=== PATIENT | female | born 1955 | race Caucasian/White ===

== ENCOUNTER 2016-12-08 22:38 | Inpatient (IN) | payer MEDICARE, MEDICAID ==
[2016-12-09] MEDS ORDERED: Albuterol/Ipratropium 3.0-0.5 MG/3 ML Neb Soln NEB PRN (00:15)
[2016-12-09] MEDS ORDERED: Sodium Chloride 0.9% 10 ML Syringe FLUSH PRN (00:15)
[2016-12-09] MEDS ORDERED: Insulin Aspart 100 Units/ML 3 ML Pen SUBCUT ONE (00:39)
[2016-12-09] MEDS: Sodium Chloride 0.9% 1,000 ML IV SCH ×4 (00:45→07:13)
[2016-12-09] MEDS ORDERED: Ondansetron 4 MG/2 ML SDV IVPUSH PRN (01:42)
[2016-12-09] MEDS ORDERED: Acetaminophen 325 MG Tab PO PRN (01:45)
[2016-12-09] MEDS ORDERED: Nicotine 21 MG/24 Hr Patch TRDERM SCH (02:00)
[2016-12-09] MEDS ORDERED: Insulin Aspart 100 Units/ML 3 ML Pen SUBCUT SCH (08:00)
[2016-12-09 09:13] VITALS: BP 160/72
--- NOTE | 2016-12-09 09:14 | PCM.HP ---
H&P History of Present Illness - General Date of Service: 12/09/16 Admit Problem/Dx: Admission Diagnosis/Problem Admission Diagnosis/Problem Acute renal failure syndrome Source of Information: Patient History Limitations: Reports: No Limitations - History of Present Illness Initial Comments - Free Text/Narative: 61-year-old female was brought in yesterday because of weakness of the legs and found to have acute renal failure. She feels good this morning.She has a history of type 2 diabetes with a recent A1c of 8.1. She aklso has a trace of depression well-controlled,hypertension stable and was in her unusual state of health until yesterday when she got up from a sitting position and the legs gave out. She denies nausea vomiting diarrhea fever chills has a chronic cough from either bronchitis or asthma which is unlcear. She smokes and works in a place with a lot of smoke. - Related Data Allergies/Adverse Reactions: Allergies Allergy/AdvReac Type Severity Reaction Status Date / Time No Known Allergies Allergy Verified 12/08/16 22:40 Home Medications: Home Meds Amphetamine/Dextroamphetamine [Adderall] 20 mg DAILY 11/01/13 [History] Benazepril/Hydrochlorothiazide [Benazepril-HCTZ 20-12.5 MG] 1 tab DAILY [History] Dextroamphetamine/Amphetamine [Amphetamine Salts] 1 tab DAILY 11/01/13 [History] Insulin Glarg,Human.Rec.Analog [Lantus Solostar] 30 units SQ BID 11/01/13 [ History] Omeprazole 20 mg PO DAILY 11/01/13 [History] metFORMIN HCl [Metformin HCl] 850 mg PO BID 11/01/13 [History] Aspirin [Low Dose Aspirin EC] 81 mg PO DAILY 04/26/15 [History] Gabapentin [Neurontin] 600 mg PO BEDTIME 04/26/15 [History] Insulin Aspart [NovoLOG] 11 units SQ 1800 04/26/15 [History] Levothyroxine 75 mcg DAILY 04/26/15 [History] Multivitamin [Daily Multiple Vitamin] 1 tab PO DAILY 04/26/15 [History] Albuterol [Proventil Neb Soln] 2.5 mg .XX 6XDAY PRN #100 neb 08/30/15 [Rx] Past Medical History - Past Health History Medical/Surgical History: Denies Medical/Surgical History HEENT 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: Other (See Below) Other HEENT History: WEARS EYEGLASSES Cardiovascular 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: High Cholesterol, Hypertension Respiratory 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: COPD MARKETING LIAISON 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: , Spontaneous Musculoskeletal 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: Arthritis Neurological 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: Neuropathy, Diabetic, Neuropathy, Peripheral Psychiatric 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: Anxiety, Depression Other Psychiatric History: insomnia Endocrine/Metabolic 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: Diabetes, Type II, Hypothyroidism, Other ( See Below) (Hyercalcemia) - Infectious Disease History Infectious Disease 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: Chicken Pox, Measles - Past Surgical History HEENT Surgical 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: None Cardiovascular Surgical 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: None Respiratory Surgical 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: None GI Surgical 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: Appendectomy, Cholecystectomy Female Surgical 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: Section, D&C Endocrine Surgical 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: None Neurological Surgical 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: None Musculoskeletal Surgical 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: None Social & Family History - Family History Family Medical History: Noncontributory - Tobacco Use Smoking Status *Q: Current Every Day Smoker Years of Tobacco use: 35 Packs/Tins Daily: 1.5 Used Tobacco, but Quit: No Second Hand Smoke Exposure: No - Caffeine Use Caffeine Use: Reports: None - Alcohol Use Days Per Week of Alcohol Use: 0 - Recreational Drug Use Recreational Drug Use: No H&P Review of Systems - Review of Systems: Review Of Systems: ROS reveals no pertinent complaints other than HPI. Exam - Exam Exam: See Below - Vital Signs Vital Signs: Last Vital Signs Temp 98.5 F 12/09/16 08:00 Pulse 93 12/09/16 08:00 Resp 16 12/09/16 08:00 BP 160/72 H 12/09/16 08:00 Pulse Ox 93 L 12/09/16 08:00 Weight: 82.27 kg - Exam General: Alert, Oriented, 4 HEENT: PERRLA, Hearing Intact, Mucosa Moist & [place], Nares Patent, Normal Nasal Septum, Posterior Pharynx Clear, Conjunctiva Clear, EOMI, EACs Clear, TMs Clear Neck: Supple, Trachea Midline, 2 Lungs: Rales, Rhonchi Cardiovascular: Regular Rate, Regular Rhythm Abdomen: Normal Bowel Sounds, Soft (Female) Exam: Deferred Rectal (Female) Exam: Deferred Back Exam: Normal Inspection, Full Range of Motion, NT Extremities: 3, Normal Inspection, 10 Skin: Warm, Dry, Intact Neurological: Cranial Nerves Intact, Reflexes Equal Bilateral Neuro Extensive - Mental Status: Alert, Oriented x3, Normal Mood/Affect, Normal Cognition Neuro Extensive - Motor, Sensory, Reflexes: CN II-XII Intact, Normal Gait, Normal Reflexes Psychiatric: Alert, Normal Affect, Normal Mood - Patient Data Lab Results last 24 hrs: Laboratory Results - last 24 hr 12/09/16 12/09/16 12/09/16 Range/Units 04:23 04:46 06:33 WBC 10.4 (4.5-12.0) X10-3/uL RBC 3.59 (3.23-5.20) x10(6)uL Hgb 10.9 L (11.5-15.5) g/dL Hct 31.8 (30.0-51.3) % MCV 88.6 (80-96) fL MCH 30.3 (27.7-33.6) pg MCHC 34.2 (32.2-35.4) g/dL RDW 13.5 (11.5-15.5) % Plt Count 270 (125-369) X10(3)uL MPV 7.9 (7.4-10.4) fL Neut % (Auto) 61.8 (46-82) % Lymph % (Auto) 27.3 (13-37) % Benton % (Auto) 9.6 (4-12) % Eos % (Auto) 1 (1.0-5.0) % Baso % (Auto) 0 (0-2) % Neut # (Auto) 6.5 (1.6-8.3) # Lymph # (Auto) 2.8 (0.6-5.0) # Benton # (Auto) 1.0 (0.0-1.3) # Eos # (Auto) 0.1 (0.0-0.8) # Baso # (Auto) 0.0 (0.0-0.2) # Sodium (135-145) mmol/L Potassium (3.5-5.3) mmol/L Chloride (100-110) mmol/L Carbon Dioxide (23-29) mmol/L BUN (8-23) mg/dL Creatinine (0.6-1.3) mg/dL Est Cr Clr Drug Dosing mL/min Estimated GFR (MDRD) (>60) BUN/Creatinine Ratio (9-20) Glucose (80-116) mg/dL POC Glucose 79 L D 86 (80-116) mg/dL Calcium (8.6-10.2) mg/dL Total Bilirubin (0.1-1.3) mg/dL AST (5-27) IU/L ALT (14-26) IU/L Alkaline Phosphatase (56-112) IU/L Total Protein (6.0-8.0) g/dL Albumin (3.2-4.6) g/dL Globulin g/dL Albumin/Globulin Ratio 12/09/ Range/Units 06:33 WBC (4.5-12.0) X10-3/uL RBC (3.23-5.20) x10(6)uL Hgb (11.5-15.5) g/dL Hct (30.0-51.3) % MCV (80-96) fL MCH (27.7-33.6) pg MCHC (32.2-35.4) g/dL RDW (11.5-15.5) % Plt Count (125-369) X10(3)uL MPV (7.4-10.4) fL Neut % (Auto) (46-82) % Lymph % (Auto) (13-37) % Benton % (Auto) (4-12) % Eos % (Auto) (1.0-5.0) % Baso % (Auto) (0-2) % Neut # (Auto) (1.6-8.3) # Lymph # (Auto) (0.6-5.0) # Benton # (Auto) (0.0-1.3) # Eos # (Auto) (0.0-0.8) # Baso # (Auto) (0.0-0.2) # Sodium 136 (135-145) mmol/L Potassium 5.0 (3.5-5.3) mmol/L Chloride 105 D (100-110) mmol/L Carbon Dioxide 18 L (23-29) mmol/L BUN 48 H (8-23) mg/dL Creatinine 6.4 H* (0.6-1.3) mg/dL Est Cr Clr Drug Dosing 6.96 mL/min Estimated GFR (MDRD) 7 L (>60) BUN/Creatinine Ratio 7.5 L (9-20) Glucose 109 D (80-116) mg/dL POC Glucose (80-116) mg/dL Calcium 8.3 L (8.6-10.2) mg/dL Total Bilirubin 0.4 (0.1-1.3) mg/dL AST 18 (5-27) IU/L ALT 13 L (14-26) IU/L Alkaline Phosphatase 75 (56-112) IU/L Total Protein 6.2 (6.0-8.0) g/dL Albumin 3.5 (3.2-4.6) g/dL Globulin 2.7 g/dL Albumin/Globulin Ratio 1.3 Result Diagrams: 12/09/16 06:33 12/09/16 06:33 EKG INTERPRETATION Rhythm: NSR *Q Meaningful Use (ADM) - VTE *Q VTE Criteria *Q: - Stroke *Q Stroke Criteria *Q: - AMI *Q AMI Criteria *Q: - Problem List (1) Acute renal failure (ARF) SNOMED Code(s): 59817456 ICD Code: N17.9 - ACUTE KIDNEY FAILURE, UNSPECIFIED Status: Acute Current Visit: Yes (2) Diabetes type 2, controlled SNOMED Code(s): 88885613 ICD Code: E11.9 - TYPE 2 DIABETES MELLITUS WITHOUT COMPLICATIONS Status: Acute Current Visit: Yes Qualifiers: Diabetes mellitus complication status: without complication Diabetes mellitus terminologist insulin use: without terminologist use Qualified Code(s): E11.9 - Type 2 diabetes mellitus without complications (3) HTN (hypertension) SNOMED Code(s): 37795275 ICD Code: I10 - ESSENTIAL (PRIMARY) HYPERTENSION Status: Acute Current Visit: Yes Qualifiers: Hypertension type: essential hypertension Qualified Code(s): I10 - Essential (primary) hypertension (4) Bronchitis SNOMED Code(s): 43630169 ICD Code: J40 - BRONCHITIS, NOT SPECIFIED ACUTE OR CHRONIC Status: Acute Current Visit: No Problem List Initiated/Reviewed/Updated: Yes Orders Last 24hrs: Active Orders 24 hr Category Date Time Status EKG Documentation Completion [RC] ASDIRECTED Care 12/09/16 08:38 Active Telemetry Monitoring [Cardiac Monitoring] [RC] QSHIFT Care 12/09/16 00:36 Active CXR [Chest 2V] [CR] Stat Exams 12/09/16 07:30 Ordered Echo Comp wo Cont [US] Urgent Exams 12/10/16 07:00 Ordered Acetaminophen [Tylenol] Med 12/09/16 01:45 Active 650 mg PO Q4H PRN Nicotine [Habitrol] Med 12/09/16 02:00 Active 21 mg TRDERM DAILY@2100 Ondansetron [Zofran] Med 12/09/16 01:42 Active 4 mg IVPUSH Q6H PRN Sodium Chloride 0.9% [Normal Saline] 1,000 ml Med 12/09/16 03:00 Active IV ASDIRECTED EKG 12 Lead [EK] Routine Ther 12/09/16 08:38 Ordered Medication Orders Acetaminophen (Tylenol) 650 mg PO Q4H PRN PRN Reason: Pain Albuterol/Ipratropium (Duoneb 3.0-0.5 Mg/3 Ml) 3 ml NEB Q6H PRN PRN Reason: Wheezing Sodium Chloride (Normal Saline) 1,000 mls @ 999 mls/hr IV ASDIRECTED [facility] Last Admin: 12/09/16 01:53 Dose: 999 mls/hr Infusion: 12/09/16 01:46 Dose: 999 mls/hr Admin: 12/09/16 00:45 Dose: 999 mls/hr Sodium Chloride (Normal Saline) 1,000 mls @ 250 mls/hr IV ASDIRECTED [facility] Last Admin: 12/09/16 07:13 Dose: 250 mls/hr Infusion: 12/09/16 07:00 Dose: 250 mls/hr Admin: 12/09/16 03:00 Dose: 250 mls/hr Insulin Aspart (Novolog) 0 unit SUBCUT TIDMEALS [facility] PRN Reason: Protocol Last Admin: 12/09/16 09:00 Dose: Not Given Nicotine (Habitrol) 21 mg TRDERM DAILY@2100 [facility] Last Admin: 12/09/16 02:00 Dose: 21 mg Ondansetron HCl (Zofran) 4 mg IVPUSH Q6H PRN PRN Reason: Nausea/Vomiting Sodium Chloride (Saline Flush) 10 ml FLUSH ASDIRECTED PRN PRN Reason: Keep Vein Open Assessment/Plan Comment:: creatinine despite the and a half liters of normal saline a slightly gone up to 6.4. She feels fine otherwise and her potassium and sugar within reference range. I Suggest to transfer to [facility] especially to get a nephrology consultation. We'll make that transfer this morning.
--- NOTE | 2016-12-09 16:23 | CR ---
INDICATION: Cough. CHEST: PA and lateral views of the chest 12/09/2016, compared with 08/30/2015, revealed the heart to appear enlarged, emphasized by relatively poor inspiration. There appears to be a degree of exogenous obesity. Overlying EKG leads are noted. Bony structures appear to be grossly intact. Somewhat heavy markings are noted at the lung bases posteriorly, especially at the left lung base, making it difficult to exclude patchy bronchopneumonia. No definite pleuritis is suggested. No consolidating pneumonia or definite effusion seen. IMPRESSION: 1. Cannot exclude patchy bronchopneumonia at the lung bases, especially on the left. No pleuritis suggested. 2. ASHD with cardiomegaly suggested 3. Probable exogenous obesity. MTDD
--- NOTE | 2016-12-10 14:29 | ER ---
DATE SEEN: 12/08/2016 CHIEF COMPLAINT: Fall. HISTORY OF PRESENT ILLNESS: This 61-year-old female is complaining of sudden weakness of the legs while she was at work at the [employer]. She still feels weak in the legs, but denies any other symptoms. No nausea, chest pain, or shortness of breath. Has a cough that is chronic and shortness of breath on ambulation. She is a smoker. PAST MEDICAL HISTORY: Type 2 diabetes. ADHD. REVIEW OF SYSTEMS: No loss of consciousness. No seizures. PHYSICAL EXAMINATION: GENERAL: She is not in any distress. Her blood pressure is normal. Her pulse is 101, temp 98.2, and oxygenation 97% on room air. EARS, NOSE, and THROAT: Negative. HEAD: Normal size. EYES: Normal. CHEST: End- expiratory rhonchi. CARDIOVASCULAR: Regular rate and rhythm. DIAGNOSTIC DATA: EKG, normal sinus rhythm. LABORATORY DATA: White count of 13,000, but potassium was 5.8 and creatinine was 6.2. IMPRESSION: Acute renal failure. PLAN: Admit for IV fluid resuscitation. I will also give NovoLog to control her blood sugar, and potassium, and check BMP every 6 hours. /[id number] MARIXA/ALBA DRISCOLL
--- NOTE | 2016-12-10 14:29 | DISCH ---
DISCHARGE DATE: 12/09/2016 REASON FOR ADMISSION: Renal failure. HISTORY OF PRESENT ILLNESS: A 61-year-old female with type 2 diabetes, presented with weakness of legs and renal failure. This morning, she has no symptoms, but the creatinine has gone up to 6.4. She is hemodynamically stable and because of the high creatinine, I did a chest x-ray that was negative, because of the cough. But the creatinine needs further treatment and consultation with Nephrology. I spoke with Dr. Veronika Thomas at [facility] and will transfer the patient this morning. I spent about 35 minutes in the discharge of this patient. /[id number] MARIXA/ALBA
== END 2016-12-09 10:52 | DRG 684 ==
LOC: FB.ED 22:38 → FB.MS 12-09 00:15
PROVIDERS: ADMIT Family Medicine; ATTEND Family Medicine
DX: N17.9 Acute kidney failure, unspecified (principal); J40 Bronchitis, not specified as acute or chronic; F17.210 Nicotine dependence, cigarettes, uncomplicated; Z79.4 Long term (current) use of insulin; Z79.84 Long term (current) use of oral hypoglycemic drugs; I10 Essential (primary) hypertension; J44.9 Chronic obstructive pulmonary disease, unspecified; M19.90 Unspecified osteoarthritis, unspecified site; Z79.82 Long term (current) use of aspirin; E11.42 Type 2 diabetes mellitus with diabetic polyneuropathy
CPT/HCPCS: 36415; 71020; 80048; 80053; 82962; 84484; 85025; 93005; 99283; 99284; A9270-GY; J7040

== ENCOUNTER 2016-12-14 18:58 | Emergency (ER) | payer MEDICARE, MEDICAID ==
[2016-12-14 19:14] VITALS: BP 111/90
--- NOTE | 2016-12-15 04:26 | ER ---
DATE SEEN: 12/14/2016 REASON FOR VISIT: Pain, left wrist. HISTORY OF PRESENT ILLNESS: This is a 61-year-old female complaining of left wrist pain. Twisted it at [employer] today while opening a door, complains of moderate pain that radiates up the arm. Worse with sudden movements. No direct trauma. PAST MEDICAL HISTORY: Type 2 diabetes, hypertension, recent acute tubular necrosis, was in [place] until yesterday. She is undergoing dialysis. MEDICATIONS: Please see the nurse's notes. ALLERGIES: No known allergies. PHYSICAL EXAMINATION: VITAL SIGNS: Blood pressure is 111/100, pulse is 107, temperature 98.0. EXTREMITIES: Left wrist showed no obvious swelling. There was tenderness on the dorsum and decreased range of motion on flexion, but normal peripheral pulses. The skin overlying it was normal in color with no warmth. X-RAYS: None. IMPRESSION: Left wrist sprain. PLAN: 1. Brace was provided. I advised ice and rest. 2. Tramadol 50 mg t.i.d. p.r.n. for pain. Avoid NSAIDs due to kidney failure. /[id number] MARIXA/ALBA
== END 2016-12-14 19:35 | disposition home or self-care (01) ==
LOC: FB.ED 18:58
DX: S63.502A Unspecified sprain of left wrist, initial encounter (principal); E11.9 Type 2 diabetes mellitus without complications; I10 Essential (primary) hypertension; X50.1XXA Overexertion from prolonged static or awkward postures, initial encounter
CPT/HCPCS: 29125; 99283

== ENCOUNTER 2017-03-29 15:01 | Emergency (ER) | payer MEDICAID, MEDICARE ==
[2017-03-29 18:01] VITALS: BP 110/78
--- NOTE | 2017-03-30 02:28 | ER ---
DATE SEEN: 03/29/2017 TIME SEEN: The patient was seen at 1555 hours. /[id number] JUDIE/ALBA
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
--- NOTE | 2017-04-04 12:40 | CR ---
INDICATION: Fall, bilateral hip pain. COMPARISON: None. PELVIS, BILATERAL HIP SERIES: Minimal degenerative osteoarthritis change hip joints bilaterally. No acute fracture, dislocation, destructive change, or joint effusion. Moderate degenerative spondylosis inferior lumbosacral spine. 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 MTDD
--- NOTE | 2017-04-04 12:41 | CR ---
INDICATION: Confusion. PA AND LATERAL CHEST: Mild perihilar, bibasilar segmental atelectasis, and/or parenchymal scarring change with volume loss, mildly decreased. No definite cardiomegaly, new focal consolidation, large pleural effusion, interstitial edema, or pneumothorax. No other interval change. IMPRESSION: Mild perihilar, bibasilar segmental atelectasis, and/or parenchymal scarring change, mildly decreased. MTDD
== END 2017-03-29 18:10 | disposition home or self-care (01) ==
LOC: FB.ED 15:01
DX: F20.9 Schizophrenia, unspecified (principal); S90.819A Abrasion, unspecified foot, initial encounter; E10.9 Type 1 diabetes mellitus without complications; J45.909 Unspecified asthma, uncomplicated; I10 Essential (primary) hypertension; K21.9 Gastro-esophageal reflux disease without esophagitis; E66.9 Obesity, unspecified; Z68.35 Body mass index [BMI] 35.0-35.9, adult; Z90.49 Acquired absence of other specified parts of digestive tract; Z79.82 Long term (current) use of aspirin; Z79.899 Other long term (current) drug therapy; W19.XXXA Unspecified fall, initial encounter
CPT/HCPCS: 36415; 70450; 71020; 73521; 80053; 82962; 83880; 84443; 84484; 85025; 93005; 99284; 99285

== ENCOUNTER 2019-04-19 19:23 | Emergency (ER) | payer MEDICARE ==
[2019-04-19] MEDS ORDERED: Aspirin 81 MG Tab.Chew PO ONE (19:40)
--- NOTE | 2019-04-19 19:42 | EDM.PDOC ---
ED HPI GENERAL MEDICAL PROBLEM - General Stated Complaint: CHEST PAIN Time Seen by Provider: 04/19/19 19:23 Source of Information: Reports: Patient History Limitations: Reports: No Limitations - History of Present Illness INITIAL COMMENTS - FREE TEXT/NARRATIVE: 63 y.o.w.f with a H/o IDDM came by PC to the ed due to an episode of mid upper CP /10 at home. Worse when taking a deep breath. No N/V/D, no SOB no diaphoresis. no other acute medical issues. BP 133/84 pulse 98 pulse ox 98% on RA RR 18 temp 36.8 Onset Date: 04/18/19 Onset Time: 07:00 Duration: Hour(s):, Intermittent, Improving Location: Reports: Chest Quality: Reports: Dull, Same as Previous Episode Severity: Mild Improves with: Reports: Rest Worsens with: Reports: Movement Context: Reports: Other Associated Symptoms: Reports: Chest Pain - Related Data Allergies Allergy/AdvReac Type Severity Reaction Status Date / Time No Known Allergies Allergy Verified 03/29/17 15:14 Home Meds: Home Meds Amphetamine/Dextroamphetamine [Adderall] 20 mg DAILY 11/01/13 [History] Benazepril/Hydrochlorothiazide [Benazepril-HCTZ 20-12.5 MG] 1 tab PO DAILY 11/01 [History] Dextroamphetamine/Amphetamine [Amphetamine Salts] 1 tab PO DAILY 11/01/13 [ History] Insulin Glarg,Human.Rec.Analog [Lantus Solostar] 30 units SQ BID 11/01/13 [ History] Omeprazole 20 mg PO DAILY 11/01/13 [History] metFORMIN HCl [Metformin HCl] 850 mg PO BID 11/01/13 [History] Aspirin [Low Dose Aspirin EC] 81 mg PO DAILY 04/26/15 [History] Gabapentin [Neurontin] 600 mg PO BEDTIME 04/26/15 [History] Insulin Aspart [NovoLOG] 11 units SQ 1800 04/26/15 [History] Levothyroxine 75 mcg DAILY 04/26/15 [History] Multivitamin [Daily Multiple Vitamin] 1 tab PO DAILY 04/26/15 [History] Albuterol [Proventil Neb Soln] 2.5 mg .XX 6XDAY PRN #100 neb 08/30/15 [Rx] Past Medical History - Past Health History Medical/Surgical History: Denies Medical/Surgical History HEENT 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: Other (See Below) Other HEENT History: WEARS EYEGLASSES Cardiovascular 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: High Cholesterol, Hypertension Respiratory 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: COPD Genitourinary 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: Acute Renal Failure 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 CHASER 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: , 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 Musculoskeletal 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: Arthritis Neurological 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: Neuropathy, Diabetic, Neuropathy, Peripheral Psychiatric 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: Anxiety, Depression Other Psychiatric History: insomnia Endocrine/Metabolic 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: Diabetes, Type II, Hypothyroidism, Other ( See Below) - Infectious Disease History Infectious Disease 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: Chicken Pox, Measles, Shingles - Past Surgical History HEENT Surgical 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: None Cardiovascular Surgical 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: None Respiratory Surgical 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: None GI Surgical 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: Appendectomy, Cholecystectomy Female Surgical 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: Section, D&C Endocrine Surgical 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: None Neurological Surgical 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: None Musculoskeletal Surgical 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: None Social & Family History - Family History Family Medical History: Noncontributory - Caffeine Use Caffeine Use: Reports: Soda ED ROS GENERAL - Review of Systems Review Of Systems: See Below Constitutional: Reports: No Symptoms HEENT: Reports: No Symptoms Respiratory: Reports: No Symptoms Cardiovascular: Reports: Chest Pain Endocrine: Reports: No Symptoms GI/Abdominal: Reports: No Symptoms : Reports: No Symptoms Musculoskeletal: Reports: No Symptoms Skin: Reports: No Symptoms Neurological: Reports: No Symptoms Psychiatric: Reports: No Symptoms Hematologic/Lymphatic: Reports: No Symptoms Immunologic: Reports: No Symptoms ED EXAM, GENERAL - Physical Exam Exam: See Below Exam Limited By: No Limitations General Appearance: Alert, WD/WN, Mild Distress Eye Exam: Bilateral Eye: Normal Inspection Ears: Normal External Exam Ear Exam: Bilateral Ear: Auricle Normal Nose: Normal Inspection, Normal Mucosa Throat/Mouth: Normal Inspection, Normal Voice, No Airway Compromise Head: Atraumatic, Normocephalic Neck: Normal Inspection, Supple, Non-Tender Respiratory/Chest: No Respiratory Distress, Lungs Clear, Normal Breath Sounds Cardiovascular: Normal Peripheral Pulses, Regular Rate, Rhythm, No Edema, No Gallop, No JVD, No Murmur, No Rub Peripheral Pulses: 2+: Carotid (R) GI/Abdominal: Normal Bowel Sounds, Soft (Female) Exam: Deferred Rectal (Female) Exam: Deferred Back Exam: Normal Inspection, Full Range of Motion Extremities: Normal Inspection, Normal Range of Motion, Non-Tender Neurological: Alert, Oriented, CN II-XII Intact, Normal Cognition, Normal Gait, No Motor/Sensory Deficits Psychiatric: Normal Affect, Normal Mood Skin Exam: Warm, Dry, Intact, Normal Color, No Rash Lymphatic: No Adenopathy EKG INTERPRETATION EKG Date: 04/19/19 Time: 19:30 Rhythm: NSR Rate (Beats/Min): 103 [place]: Normal P-Wave: Present QRS: Normal ST-T: Normal QT: Normal Comparison: NA - No Prior EKG Course - Vital Signs Text/Narrative:: 63 y.o.w.f with a H/o IDDM came by PC to the ed due to an episode of mid upper CP 03/06 at home. Worse when taking a deep breath. No N/V/D, no SOB no diaphoresis. no other acute medical issues. BP 133/84 pulse 98 pulse ox 98% on RA RR 18 temp 36.8 PE: WNWD W F with IDDM and mid upper CP with inspirations pain level on arrival 01/04 Imaging: CXR; NAD as per RAD Labs: CBC, BMP nl except GLC was 398 Ca was 7.7 Troponin was nl Impression: Atypical chest pain, IDDM with hyperglycemia Tx: ASA, Insulin, water Reexam: Pain subsided 100% Glc level got worse after 7 u if Reg insulin, Pt requested to be D/C'd however, she said she will take her own insulin at home. Plan: D/C with instructions - Orders/Labs/Meds Orders: Active Orders 24 hr Category Date Time Status Chest 1V Frontal [CR] Stat Exams 04/19/19 19:40 Taken Labs: Laboratory Tests 04/19/19 04/19/19 04/19/19 Range/Units 19:48 19:48 19:48 WBC 6.9 (4.5-12.0) X10-3/uL RBC 4.48 (3.23-5.20) x10(6)uL Hgb 13.1 (11.5-15.5) g/dL Hct 39.0 (30.0-51.3) % MCV 87.1 (80-96) fL MCH 29.2 (27.7-33.6) pg MCHC 33.5 (32.2-35.4) g/dL RDW 13.1 (11.5-15.5) % Plt Count 407 H (125-369) X10(3)uL MPV 7.8 (7.4-10.4) fL Neut % (Auto) 46.3 (46-82) % Lymph % (Auto) 42.2 H (13-37) % [place] % (Auto) 9.0 (4-12) % Eos % (Auto) 2 (1.0-5.0) % Baso % (Auto) 1 (0-2) % Neut # (Auto) 3.3 (1.6-8.3) # Lymph # (Auto) 2.9 (0.6-5.0) # [place] # (Auto) 0.6 (0.0-1.3) # Eos # (Auto) 0.1 (0.0-0.8) # Baso # (Auto) 0.0 (0.0-0.2) # PT 10.7 (8.7-11.1) INR 1.03 (0.89-1.13) D-Dimer, Quantitative 0.49 (0.0-0.59) mg/LFEU Sodium 136 (135-145) mmol/L Potassium 4.5 (3.5-5.3) mmol/L Chloride 99 L (100-110) mmol/L Carbon Dioxide 27 (21-32) mmol/L BUN 18 (7-18) mg/dL Creatinine 1.1 H (0.55-1.02) mg/dL Est Cr Clr Drug Dosing TNP Estimated GFR (MDRD) 50 L (>60) BUN/Creatinine Ratio 16.4 (9-20) Glucose 398 H (80-116) mg/dL Calcium 7.7 L (8.6-10.2) mg/dL Troponin I (<0.017-0.056) ng/mL 04/19/19 Range/Units 19:48 WBC (4.5-12.0) X10-3/uL RBC (3.23-5.20) x10(6)uL Hgb (11.5-15.5) g/dL Hct (30.0-51.3) % MCV (80-96) fL MCH (27.7-33.6) pg MCHC (32.2-35.4) g/dL RDW (11.5-15.5) % Plt Count (125-369) X10(3)uL MPV (7.4-10.4) fL Neut % (Auto) (46-82) % Lymph % (Auto) (13-37) % [place] % (Auto) (4-12) % Eos % (Auto) (1.0-5.0) % Baso % (Auto) (0-2) % Neut # (Auto) (1.6-8.3) # Lymph # (Auto) (0.6-5.0) # [place] # (Auto) (0.0-1.3) # Eos # (Auto) (0.0-0.8) # Baso # (Auto) (0.0-0.2) # PT (8.7-11.1) INR (0.89-1.13) D-Dimer, Quantitative (0.0-0.59) mg/LFEU Sodium (135-145) mmol/L Potassium (3.5-5.3) mmol/L Chloride (100-110) mmol/L Carbon Dioxide (21-32) mmol/L BUN (7-18) mg/dL Creatinine (0.55-1.02) mg/dL Est Cr Clr Drug Dosing Estimated GFR (MDRD) (>60) BUN/Creatinine Ratio (9-20) Glucose (80-116) mg/dL Calcium (8.6-10.2) mg/dL Troponin I < 0.017 L (<0.017-0.056) ng/mL Meds: Medications Discontinued Medications Generic Name Dose Route Start Last Admin Trade Name Freq PRN Reason Stop Dose Admin Aspirin 324 mg 04/19/19 19:40 04/19/19 19:39 Aspirin PO 04/19/19 19:41 324 mg ONETIME ONE Administration Insulin Human Regular 7 unit 04/19/19 20:37 04/19/19 20:44 Humulin R SUBCUT 04/19/19 20:38 7 units ONETIME STA Administration Departure - Departure Time of Disposition: 21:32 Disposition: Home, Self-Care 01 Condition: Good Clinical Impression: Atypical chest pain, Hyperglycemia due to type 2 diabetes mellitus Referrals: PCP,None [Primary Care Provider] - Forms: ED Department Discharge Additional Instructions: Please cont your current meds, please f/u with your PMD, come back if your symptoms get worse acutely. - My Orders Last 24 Hours: My Active Orders 04/19/19 19:40 Chest 1V Frontal [CR] Stat - Assessment/Plan Last 24 Hours: My Active Orders 04/19/19 19:40 Chest 1V Frontal [CR] Stat
[2019-04-19] MEDS ORDERED: Insulin Regular, Human 100 Units/ML 3 ML Vial SUBCUT STA (20:37)
[2019-04-21 09:51] VITALS: BP 136/63; PULSE 98
== END 2019-04-19 22:55 | disposition home or self-care (01) ==
LOC: FB.ED 19:23
DX: R07.89 Other chest pain (principal); E11.65 Type 2 diabetes mellitus with hyperglycemia; I10 Essential (primary) hypertension; E03.9 Hypothyroidism, unspecified; Z90.49 Acquired absence of other specified parts of digestive tract; E78.00 Pure hypercholesterolemia, unspecified; Z79.899 Other long term (current) drug therapy; Z79.4 Long term (current) use of insulin; Z79.82 Long term (current) use of aspirin
CPT/HCPCS: 36415; 71045; 80048; 82962; 84484; 85025; 85379; 85610; 93005; 99283; 99285; A9270; J1815

== ENCOUNTER 2019-11-01 12:20 | Emergency (ER) | payer MEDICARE ==
[2019-11-01] MEDS ORDERED: Sodium Chloride 0.9% 1,000 ML IV SCH ×2 (12:30→14:15)
--- NOTE | 2019-11-01 12:34 | EDM.PDOC ---
ED HPI GENERAL MEDICAL PROBLEM - General Chief Complaint: Neurological Problem Stated Complaint: ALTERED MENTAL STATUS Time Seen by Provider: 11/01/19 12:20 Source of Information: Reports: EMS, Family History Limitations: Reports: Altered Mental Status - History of Present Illness INITIAL COMMENTS - FREE TEXT/NARRATIVE: [place] in by EMS [place] behaving abnormally returned and she was in a ? 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 HOME INSTALLER: Reports: IV/IO, See EMS Report - Related Data Allergies Allergy/AdvReac Type Severity Reaction Status Date / Time No Known Allergies Allergy Verified 04/21/19 10:25 Home Meds: Home Meds Amphetamine/Dextroamphetamine [Adderall] 20 mg DAILY 11/01/13 [History] Omeprazole 20 mg PO DAILY 11/01/13 [History] metFORMIN HCl [Metformin HCl] 850 mg PO BID 11/01/13 [History] Aspirin [Low Dose Aspirin EC] 81 mg PO DAILY 04/26/15 [History] Gabapentin [Neurontin] 600 mg PO BEDTIME 04/26/15 [History] Levothyroxine 75 mcg DAILY 04/26/15 [History] Multivitamin [Daily Multiple Vitamin] 1 tab PO DAILY 04/26/15 [History] .Breo Ellipta 200mcg/25mcg 1 puff INH DAILY 04/20/19 [History] .Vitamin D 1 tab PO TID 04/20/19 [History] Albuterol [Ventolin HFA] 2 puff INH Q4HR PRN 04/20/19 [History] Insulin Detemir [Levemir Flextouch] 60 units SQ BID 04/20/19 [History] Past Medical History - Past Health History Medical/Surgical History: Denies Medical/Surgical History HEENT 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: Other (See Below) Other HEENT History: WEARS EYEGLASSES Cardiovascular 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: High Cholesterol, Hypertension Respiratory 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: COPD Genitourinary 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: Acute Renal Failure 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 CHIPPER 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: , 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 Musculoskeletal 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: Arthritis Neurological 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: Neuropathy, Diabetic, Neuropathy, Peripheral Psychiatric 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: Anxiety, Depression Other Psychiatric History: insomnia Endocrine/Metabolic 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: Diabetes, Type II, Hypothyroidism, Other ( See Below) - Infectious Disease History Infectious Disease 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: Chicken Pox, Measles, Shingles - Past Surgical History HEENT Surgical 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: None Cardiovascular Surgical 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: None Respiratory Surgical 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: None GI Surgical 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: Appendectomy, Cholecystectomy Female Surgical 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: Section, D&C Endocrine Surgical 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: None Neurological Surgical 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: None Musculoskeletal Surgical 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: None Social & Family History - Family History Family Medical History: Noncontributory - Caffeine Use Caffeine Use: Reports: Soda ED ROS GENERAL - Review of Systems Review Of Systems: Unable To Obtain Reason Not Obtained: pt has altered mentatl status - Physical Exam Exam: See Below Exam Limited By: Altered Mental Status General Appearance: Lethargic Eye Exam: Bilateral Eye: EOMI Ears: Normal External Exam Nose: Normal Inspection Throat/Mouth: Normal Oropharynx Head Exam: Atraumatic, Normocephalic Neck: Supple, Non-Tender Respiratory/Chest: No Respiratory Distress, Lungs Clear Cardiovascular: Normal Peripheral Pulses, Regular Rate, Rhythm Neuro Exam (Abbreviated): Confused, Disoriented Back Exam: Normal Inspection Extremities: Normal Inspection, Normal Range of Motion. No: Pedal Edema Skin Exam: Warm, Intact. No: Decubitus, Jaundice, Petechiae, Rash Course - Vital Signs Last Recorded V/S: Last Vital Signs Temp 37.3 C 11/01/19 14:06 Pulse 101 H 11/01/19 14:06 Resp 16 11/01/19 14:06 BP 131/58 L 11/01/19 14:06 Pulse Ox 92 L 11/01/19 14:06 - Orders/Labs/Meds Orders: Active Orders 24 hr Category Date Time Status Accu Check [Blood Glucose Check, Bedside] [RC] ONETIME Care 11/01/19 12:27 Active Labs: Laboratory Tests 11/01/19 11/01/19 11/01/19 Range/Units 12:35 12:35 12:35 WBC 10.5 (4.5-12.0) X10-3/uL RBC 4.25 (3.23-5.20) x10(6)uL Hgb 12.4 (11.5-15.5) g/dL Hct 37.2 (30.0-51.3) % MCV 87.7 (80-96) fL MCH 29.2 (27.7-33.6) pg MCHC 33.3 (32.2-35.4) g/dL RDW 13.0 (11.5-15.5) % Plt Count 316 (125-369) X10(3)uL MPV 8.1 (7.4-10.4) fL Neut % (Auto) 76.7 (46-82) % Lymph % (Auto) 17.6 (13-37) % [place] % (Auto) 4.9 (4-12) % Eos % (Auto) 0 L (1.0-5.0) % Baso % (Auto) 1 (0-2) % Neut # (Auto) 8.0 (1.6-8.3) # Lymph # (Auto) 1.9 (0.6-5.0) # [place] # (Auto) 0.5 (0.0-1.3) # Eos # (Auto) 0.0 (0.0-0.8) # Baso # (Auto) 0.1 (0.0-0.2) # Sodium 143 (135-145) mmol/L Potassium 3.5 D (3.5-5.3) mmol/L Chloride 100 (100-110) mmol/L Carbon Dioxide 29 (21-32) mmol/L BUN 12 (7-18) mg/dL Creatinine 1.0 (0.55-1.02) mg/dL Est Cr Clr Drug Dosing TNP Estimated GFR (MDRD) 56 L (>60) BUN/Creatinine Ratio 12.0 (9-20) Glucose 342 H (80-116) mg/dL Lactic Acid (0.4-2.0) mmol/L Calcium 5.8 L* (8.6-10.2) mg/dL Magnesium 0.1 L* (1.8-2.5) mg/dL Total Bilirubin 0.4 (0.1-1.3) mg/dL AST 24 D (5-25) IU/L ALT 20 D (12-36) U/L Alkaline Phosphatase 69 (56-112) IU/L Troponin I (4.0-60.3) pg/mL C-Reactive Protein (0.5-0.9) mg/dL NT-Pro-B Natriuret Pep (<=125) pg/mL Total Protein 7.0 (6.0-8.0) g/dL Albumin 3.5 (3.2-4.6) g/dL Globulin 3.5 g/dL Albumin/Globulin Ratio 1.0 Ethyl Alcohol (<0.03) % 11/01/19 11/01/19 11/01/19 Range/Units 12:35 12:35 13:42 WBC (4.5-12.0) X10-3/uL RBC (3.23-5.20) x10(6)uL Hgb (11.5-15.5) g/dL Hct (30.0-51.3) % MCV (80-96) fL MCH (27.7-33.6) pg MCHC (32.2-35.4) g/dL RDW (11.5-15.5) % Plt Count (125-369) X10(3)uL MPV (7.4-10.4) fL Neut % (Auto) (46-82) % Lymph % (Auto) (13-37) % [place] % (Auto) (4-12) % Eos % (Auto) (1.0-5.0) % Baso % (Auto) (0-2) % Neut # (Auto) (1.6-8.3) # Lymph # (Auto) (0.6-5.0) # [place] # (Auto) (0.0-1.3) # Eos # (Auto) (0.0-0.8) # Baso # (Auto) (0.0-0.2) # Sodium (135-145) mmol/L Potassium (3.5-5.3) mmol/L Chloride (100-110) mmol/L Carbon Dioxide (21-32) mmol/L BUN (7-18) mg/dL Creatinine (0.55-1.02) mg/dL Est Cr Clr Drug Dosing Estimated GFR (MDRD) (>60) BUN/Creatinine Ratio (9-20) Glucose (80-116) mg/dL Lactic Acid 1.8 (0.4-2.0) mmol/L Calcium (8.6-10.2) mg/dL Magnesium (1.8-2.5) mg/dL Total Bilirubin (0.1-1.3) mg/dL AST (5-25) IU/L ALT (12-36) U/L Alkaline Phosphatase (56-112) IU/L Troponin I 18.3 (4.0-60.3) pg/mL C-Reactive Protein < 0.2 L (0.5-0.9) mg/dL NT-Pro-B Natriuret Pep 205 H (<=125) pg/mL Total Protein (6.0-8.0) g/dL Albumin (3.2-4.6) g/dL Globulin g/dL Albumin/Globulin Ratio Ethyl Alcohol (<0.03) % 11/01/19 Range/Units 13:42 WBC (4.5-12.0) X10-3/uL RBC (3.23-5.20) x10(6)uL Hgb (11.5-15.5) g/dL Hct (30.0-51.3) % MCV (80-96) fL MCH (27.7-33.6) pg MCHC (32.2-35.4) g/dL RDW (11.5-15.5) % Plt Count (125-369) X10(3)uL MPV (7.4-10.4) fL Neut % (Auto) (46-82) % Lymph % (Auto) (13-37) % [place] % (Auto) (4-12) % Eos % (Auto) (1.0-5.0) % Baso % (Auto) (0-2) % Neut # (Auto) (1.6-8.3) # Lymph # (Auto) (0.6-5.0) # [place] # (Auto) (0.0-1.3) # Eos # (Auto) (0.0-0.8) # Baso # (Auto) (0.0-0.2) # Sodium (135-145) mmol/L Potassium (3.5-5.3) mmol/L Chloride (100-110) mmol/L Carbon Dioxide (21-32) mmol/L BUN (7-18) mg/dL Creatinine (0.55-1.02) mg/dL Est Cr Clr Drug Dosing Estimated GFR (MDRD) (>60) BUN/Creatinine Ratio (9-20) Glucose (80-116) mg/dL Lactic Acid (0.4-2.0) mmol/L Calcium (8.6-10.2) mg/dL Magnesium (1.8-2.5) mg/dL Total Bilirubin (0.1-1.3) mg/dL AST (5-25) IU/L ALT (12-36) U/L Alkaline Phosphatase (56-112) IU/L Troponin I (4.0-60.3) pg/mL C-Reactive Protein (0.5-0.9) mg/dL NT-Pro-B Natriuret Pep (<=125) pg/mL Total Protein (6.0-8.0) g/dL Albumin (3.2-4.6) g/dL Globulin g/dL Albumin/Globulin Ratio Ethyl Alcohol < 0.03 (<0.03) % Meds: Medications Discontinued Medications Generic Name Dose Route Start Last Admin Trade Name Freq PRN Reason Stop Dose Admin Sodium Chloride 1,000 mls @ 999 mls/hr 11/01/19 12:30 11/01/19 12:30 Normal Saline IV 999 mls/hr ASDIRECTED CARISA Administration Magnesium Sulfate 1 gm/ Sodium 52 mls @ 100 mls/hr 11/01/19 13:30 11/01/19 13 :30 Chloride IV 11/01/19 14:01 100 mls/hr ONETIME ONE Administration Sodium Chloride 1,000 mls @ 150 mls/hr 11/01/19 14:15 Normal Saline IV ASDIRECTED CARISA Multivitamins/Minerals 10 ml/ 1,017.2 mls @ 999 mls/hr 11/01/19 14:30 Thiamine HCl 100 mg/ Folic IV Acid 1 mg/ Magnesium Sulfate 3 ASDIRECTED CARISA gm/ Sodium Chloride Lorazepam 2 mg 11/01/19 13:41 11/01/19 13:54 Ativan IVPUSH 11/01/19 13:42 2 mg ONETIME ONE Administration Ondansetron HCl 4 mg 11/01/19 12:51 11/01/19 13:00 Zofran IVPUSH 11/01/19 12:52 4 mg ONETIME ONE Administration Sodium Chloride 10 ml 11/01/19 13:54 11/01/19 13:54 Saline Flush FLUSH 10 ml ASDIRECTED PRN Administration IV Use - Re-Assessments/Exams Free Text/Narrative Re-Assessment/Exam: 11/01/19 14:04 on arrival had IVF started , sent for CT head CT Head : lacunar infarction near parietal lobe on being given 1000mls Nacl and seemed to wake up responded by opening her eyes noted to have low magnesium ( severe ) Given IV magnesium 1gm became more alert and aggitated making attempts to get out of bed Was given IV ativan 2mg still agitated with attempts to straight cath for urine discussed with neurologist : impression that symptoms are not from lacunar infarct discussed with ER and agrees to transfer for further evaluation 11/01/19 14:16 11/01/19 14:18 11/01/19 14:21 Air crew arrived to transport Departure - Departure Time of Disposition: 14:35 Disposition: DC/Tfer to [facility] 02 Clinical Impression: Altered mental status, unspecified, Hypomagnesemia with secondary hypocalcemia Diabetes type 2, controlled Qualifiers: Diabetes mellitus senior care insulin use: without senior care use Diabetes mellitus complication status: without complication Qualified Code(s): E11.9 - Type 2 diabetes mellitus without complications - Discharge Information *PRESCRIPTION DRUG MONITORING PROGRAM REVIEWED*: Not Applicable *COPY OF PRESCRIPTION DRUG MONITORING REPORT IN PATIENT MARIBEL: Not Applicable Referrals: PCP,None [Primary Care Provider] - Forms: ED Department Discharge Sepsis Event Note - Focused Exam Vital Signs: Vital Signs Temp Pulse Resp BP Pulse Ox 11/01/19 14:06 37.3 C 101 H 16 131/58 L 92 L 11/01/19 12:45 36.9 C 113 H 18 158/78 H 94 L Date Exam was Performed: 11/01/19 Time Exam was Performed: 16:30 - My Orders Last 24 Hours: My Active Orders 11/01/19 12:27 Accu Check [Blood Glucose Check, Bedside] [RC] ONETIME - Assessment/Plan Last 24 Hours: My Active Orders 11/01/19 12:27 Accu Check [Blood Glucose Check, Bedside] [RC] ONETIME
[2019-11-01] MEDS ORDERED: Ondansetron 4 MG/2 ML SDV IVPUSH ONE (12:51)
[2019-11-01] MEDS ORDERED: LORazepam 2 MG/ML SDV IVPUSH ONE (13:41)
--- NOTE | 2019-11-01 13:41 | CT ---
INDICATION: Altered mental status - found unresponsive. CT HEAD WITHOUT CONTRAST: Spiral 3.75 mm axial sections were obtained through the brain without contrast with sagittal and coronal reconstructions and axial reconstructions, 11/01/19 and compared with 03/29/17. Total exam DLP was 1322.30 mGy-cm. There is no shift of midline structures or ventricular abnormality identified. There is a focal area of decreased density measuring up to 11 mm in maximum diameter in the anterior limb of the external capsule on the right. This is a new finding compared with the previous examination. It extends to the caudal aspect of the right parietal lobe white matter and anteriorly to the anterior limb of the right internal capsule. This most likely represents a lacunar infarct, possibly a lacunar infarct in progress with ischemia. MRI would be confirmatory and further diagnostic benefit as felt to be clinically necessary. There is no bleeding site or hematoma identified. There is asymmetry in the lateral ventricles which likely is anatomic in nature. No calcifications are noted in the arteries. Empty sella is again noted. The maxillary antra showed some thickening of the linings bilaterally in the floors of those sinuses and there is a [id number] sized retention cyst in the left maxillary antrum. The paranasal sinuses were otherwise well aerated. Mastoid air cells appear to be well aerated. The cranium appears to be intact. IMPRESSION: 1. Abnormal area of density in the anterior limb of the external capsule on the right. This may represent an acute finding or possibly a chronic finding. Further evaluation could be obtained by MRI as felt to be clinically necessary. 2. Findings in the maxillary antra may represent a mild degree of chronic sinusitis. Report was called to Dr. Ortiz at approximately 11:06 hours. [facility]
[2019-11-01] MEDS ORDERED: Sodium Chloride 0.9% 10 ML Syringe FLUSH PRN (13:54)
[2019-11-01] MEDS ORDERED: MVI, Adult with Vitamin K 10 ML, Thiamine 100 MG, Folic Acid 1 MG, Magnesium Sulfate 3 ... IV SCH ×5 (14:30)
[2019-11-01 15:50] VITALS: BP 131/58; PULSE 101
== END 2019-11-01 14:35 ==
LOC: FB.ED 12:20
DX: R41.82 Altered mental status, unspecified (principal); E83.51 Hypocalcemia; E83.42 Hypomagnesemia; E11.42 Type 2 diabetes mellitus with diabetic polyneuropathy; I10 Essential (primary) hypertension; E78.00 Pure hypercholesterolemia, unspecified; E03.9 Hypothyroidism, unspecified; Z79.84 Long term (current) use of oral hypoglycemic drugs; Z79.82 Long term (current) use of aspirin; Z79.899 Other long term (current) drug therapy
CPT/HCPCS: 36415; 70450; 80053; 80307; 82962; 83605; 83735; 83880; 84484; 85025; 86140; 96361; 96365; 96375; 99285-25; J2060; J2405; J3475; J7030; J7050

== ENCOUNTER 2019-12-07 23:08 | Emergency (ER) | payer MEDICARE, OTHER ==
[2019-12-07 23:28] VITALS: BP 137/69; PULSE 110
[2019-12-07] MEDS ORDERED: Zolpidem 10 MG Tab PO ONE (23:54)
[2019-12-07] MEDS ORDERED: Zolpidem 10 MG Tab PO STA (23:55)
--- NOTE | 2019-12-08 00:04 | EDM.PDOC ---
ED HPI GENERAL MEDICAL PROBLEM - General Chief Complaint: Respiratory Problem Stated Complaint: sob Time Seen by Provider: 12/07/19 23:20 Source of Information: Reports: Patient History Limitations: Reports: No Limitations - History of Present Illness INITIAL COMMENTS - FREE TEXT/NARRATIVE: Patient presented to the ED because of dyspnea. She said she couldn't catch her breath tonight. She has been worrying a lot about Covid and how she can pay her bills. She has a history of anxiety and depression and is taking seroquel and mirtazapine. Lately, she is only sleeping 4 hours because of too much worrying. - Related Data Allergies Allergy/AdvReac Type Severity Reaction Status Date / Time No Known Allergies Allergy Verified 12/07/19 23:14 Home Meds: Home Meds Omeprazole 20 mg PO DAILY 11/01/13 [History] metFORMIN HCl [Metformin HCl] 850 mg PO BID 11/01/13 [History] Aspirin [Low Dose Aspirin EC] 81 mg PO DAILY 04/26/15 [History] Gabapentin [Neurontin] 600 mg PO BEDTIME 04/26/15 [History] Levothyroxine 75 mcg DAILY 04/26/15 [History] Multivitamin [Daily Multiple Vitamin] 1 tab PO DAILY 04/26/15 [History] .Breo Ellipta 200mcg/25mcg 1 puff INH DAILY 04/20/19 [History] .Vitamin D 1 tab PO TID 04/20/19 [History] Albuterol [Ventolin HFA] 2 puff INH Q4HR PRN 04/20/19 [History] Insulin Detemir [Levemir Flextouch] 60 units SQ BID MDD hasnt had any for a month 04/20/19 [History] Methylphenidate [Ritalin] 20 mg PO DAILY 12/07/19 [History] Mirtazapine 15 mg PO BEDTIME 12/07/19 [History] QUEtiapine [SEROquel] 200 mg PO BEDTIME 12/07/19 [History] glipiZIDE [Glucotrol] 10 mg PO DAILY 12/07/19 [History] lisinopriL [Lisinopril] 10 mg PO DAILY 12/07/19 [History] Zolpidem Tartrate [Ambien] 5 mg PO DAILY #15 tablet 12/08/19 [Rx] Past Medical History - Past Health History Medical/Surgical History: Denies Medical/Surgical History HEENT 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: Other (See Below) Other HEENT History: WEARS EYEGLASSES Cardiovascular 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: High Cholesterol, Hypertension Respiratory 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: COPD Genitourinary 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: Acute Renal Failure 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: , 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 Musculoskeletal 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: Arthritis Neurological 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: Neuropathy, Diabetic, Neuropathy, Peripheral Psychiatric 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: Anxiety, Depression Other Psychiatric History: insomnia Endocrine/Metabolic 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: Diabetes, Type II, Hypothyroidism, Other ( See Below) - Infectious Disease History Infectious Disease 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: Chicken Pox, Measles, Shingles - Past Surgical History HEENT Surgical 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: None Cardiovascular Surgical 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: None Respiratory Surgical 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: None GI Surgical 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: Appendectomy, Cholecystectomy Female Surgical 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: Section, D&C Endocrine Surgical 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: None Neurological Surgical 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: None Musculoskeletal Surgical 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: None Social & Family History - Family History Family Medical History: Noncontributory - Tobacco Use Smoking Status *Q: Current Every Day Smoker Years of Tobacco use: 50 Packs/Tins Daily: 0.5 - Caffeine Use Caffeine Use: Reports: Coffee - Recreational Drug Use Recreational Drug Use: No ED ROS GENERAL - Review of Systems Review Of Systems: See Below Constitutional: Reports: No Symptoms HEENT: Reports: No Symptoms Respiratory: Reports: No Symptoms Cardiovascular: Reports: No Symptoms Endocrine: Reports: No Symptoms GI/Abdominal: Reports: No Symptoms : Reports: No Symptoms Musculoskeletal: Reports: No Symptoms Skin: Reports: No Symptoms Neurological: Reports: No Symptoms ED EXAM, GENERAL - Physical Exam Exam: See Below Exam Limited By: No Limitations General Appearance: Alert, No Apparent Distress Ears: Normal External Exam, Normal Canal Nose: Normal Inspection, Normal Mucosa Throat/Mouth: Normal Inspection, Normal Lips, Normal Teeth Head: Atraumatic, Normocephalic Neck: Normal Inspection, Supple, Non-Tender, Full Range of Motion Cardiovascular: Normal Peripheral Pulses, Regular Rate, Rhythm, No Edema, No Gallop GI/Abdominal: Normal Bowel Sounds, Soft, Non-Tender, No Organomegaly Back Exam: Normal Inspection, Full Range of Motion Extremities: Normal Inspection Course - Vital Signs Text/Narrative:: reassurance Last Recorded V/S: Last Vital Signs Temp 36.4 C 12/07/19 23:10 Pulse 110 H 12/07/19 23:10 Resp 16 12/07/19 23:10 BP 137/69 12/07/19 23:10 Pulse Ox 99 12/07/19 23:10 - Orders/Labs/Meds Meds: Medications Discontinued Medications Generic Name Dose Route Start Last Admin Trade Name Idris PRN Reason Stop Dose Admin Zolpidem Tartrate 5 mg 12/07/19 23:54 Ambien PO 12/07/19 23:55 ONETIME ONE Zolpidem Tartrate 5 mg 12/07/19 23:55 12/08/19 00:02 Ambien PO 12/07/19 23:56 5 mg NOW STA Administration Departure - Departure Time of Disposition: 00:05 Disposition: Home, Self-Care 01 Condition: Good Clinical Impression: Anxiety, Depression, Generalized anxiety disorder, Insomnia - Discharge Information Prescriptions: Zolpidem Tartrate [Ambien] 5 mg PO DAILY #15 tablet Instructions: Generalized Anxiety Disorder, Adult, Major Depressive Disorder, Adult Referrals: Stevenson Hernandez MD [Primary Care Provider] - Forms: ED Department Discharge Additional Instructions: Please read discharge instructions on anxiety,depression and insomnia continue with your remeron/mirtazapine and seroquel/quietapine zolpidem 5 mg at bed time as needed for sleep follow up with your primary doctor or psychiatrist so they can adjust your psych meds Sepsis Event Note - Evaluation Sepsis Screening Result: No Definite Risk - Focused Exam Vital Signs: Vital Signs Temp Pulse Resp BP Pulse Ox 12/07/19 23:10 36.4 C 110 H 16 137/69 99 Date Exam was Performed: 12/08/19 Time Exam was Performed: 05:43
== END 2019-12-08 00:10 | disposition home or self-care (01) ==
LOC: FB.ED 23:08
DX: F41.1 Generalized anxiety disorder (principal); F32.9 Major depressive disorder, single episode, unspecified; G47.00 Insomnia, unspecified; E78.00 Pure hypercholesterolemia, unspecified; I10 Essential (primary) hypertension; J44.9 Chronic obstructive pulmonary disease, unspecified; E11.42 Type 2 diabetes mellitus with diabetic polyneuropathy; E03.9 Hypothyroidism, unspecified; M19.90 Unspecified osteoarthritis, unspecified site; F17.210 Nicotine dependence, cigarettes, uncomplicated; Z79.82 Long term (current) use of aspirin; Z79.4 Long term (current) use of insulin; Z79.84 Long term (current) use of oral hypoglycemic drugs; Z79.899 Other long term (current) drug therapy
CPT/HCPCS: 99283; A9270

== ENCOUNTER 2020-06-08 18:31 | Emergency (ER) | payer MEDICAID, MEDICARE ==
[2020-06-08] MEDS ORDERED: Amoxicillin 500 MG Cap PO ONE (18:32)
[2020-06-08 19:25] VITALS: BP 163/52; PULSE 80
--- NOTE | 2020-06-08 19:37 | EDM.PDOC ---
ED HPI GENERAL MEDICAL PROBLEM - General Chief Complaint: ENT Problem Stated Complaint: TOOTHACHE Time Seen by Provider: 06/08/20 19:30 Source of Information: Reports: Patient, Old Records History Limitations: Reports: No Limitations - History of Present Illness INITIAL COMMENTS - FREE TEXT/NARRATIVE: Gita comes into [facility] ED seeking antibx for infected caried molars involving the L lower mandible. She was treated for a similar infection about 2 mos ago with antibx and Tramadol. She has not seen an oral surgeon for consult. lower left tooth pain Pain Score (Numeric/FACES): 9 - Related Data Allergies Allergy/AdvReac Type Severity Reaction Status Date / Time No Known Allergies Allergy Verified 06/08/20 19:32 Home Meds: Home Meds Omeprazole 20 mg PO DAILY 11/01/13 [History] metFORMIN HCl [Metformin HCl] 850 mg PO BID 11/01/13 [History] Aspirin [Low Dose Aspirin EC] 81 mg PO DAILY 04/26/15 [History] Gabapentin [Neurontin] 600 mg PO BEDTIME 04/26/15 [History] Levothyroxine 75 mcg DAILY 04/26/15 [History] Multivitamin [Daily Multiple Vitamin] 1 tab PO DAILY 04/26/15 [History] .Breo Ellipta 200mcg/25mcg 1 puff INH DAILY 04/20/19 [History] .Vitamin D 1 tab PO TID 04/20/19 [History] Albuterol [Ventolin HFA] 2 puff INH Q4HR PRN 04/20/19 [History] Insulin Detemir [Levemir Flextouch] 60 units SQ BID MDD hasnt had any for a month 04/20/19 [History] Methylphenidate [Ritalin] 20 mg PO DAILY 12/07/19 [History] Mirtazapine 15 mg PO BEDTIME 12/07/19 [History] QUEtiapine [SEROquel] 200 mg PO BEDTIME 12/07/19 [History] glipiZIDE [Glucotrol] 10 mg PO DAILY 12/07/19 [History] lisinopriL [Lisinopril] 10 mg PO DAILY 12/07/19 [History] Zolpidem Tartrate [Ambien] 5 mg PO DAILY #15 tablet 12/08/19 [Rx] Past Medical History - Past Health History Medical/Surgical History: Denies Medical/Surgical History HEENT 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: Other (See Below) Other HEENT History: WEARS EYEGLASSES Cardiovascular 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: High Cholesterol, Hypertension Respiratory 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: COPD Genitourinary 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: Acute Renal Failure 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: , 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 Musculoskeletal 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: Arthritis Neurological 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: Neuropathy, Diabetic, Neuropathy, Peripheral Psychiatric 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: Anxiety, Depression Other Psychiatric History: insomnia Endocrine/Metabolic 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: Diabetes, Type II, Hypothyroidism, Other (See Below) - Infectious Disease History Infectious Disease 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: Chicken Pox, Measles, Shingles - Past Surgical History HEENT Surgical 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: None Cardiovascular Surgical 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: None Respiratory Surgical 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: None GI Surgical 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: Appendectomy, Cholecystectomy Female Surgical 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: Section, D&C Endocrine Surgical 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: None Neurological Surgical 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: None Musculoskeletal Surgical 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: None Social & Family History - Family History Family Medical History: No Pertinent Family History - Tobacco Use Tobacco Use Status *Q: Current Every Day Tobacco User Years of Tobacco use: 50 Packs/Tins Daily: 1 - Caffeine Use Caffeine Use: Reports: Coffee ED ROS ENT - Review of Systems Review Of Systems: Comprehensive ROS is negative, except as noted in HPI. ED EXAM, ENT - Physical Exam Exam: See Below Exam Limited By: No Limitations General Appearance: Alert, WD/WN, No Apparent Distress, Thin Eye Exam: Bilateral Eye: EOMI, Normal Inspection, PERRL Ears: Normal External Exam Nose: Normal Inspection Mouth/Throat: Dental Pain, Gum Swelling (deeply caried molars #18,#19,#20 with gingival swelling, no bleeding) Head: Normocephalic Neck: Normal Inspection, Supple, Non-Tender, Full Range of Motion Respiratory/Chest: Lungs Clear Cardiovascular: Regular Rate, Rhythm, No Murmur Back: Normal Inspection Extremities: Normal Inspection Neurological: Alert, Oriented, CN II-XII Intact, No Motor/Sensory Deficits Psychiatric: Normal Affect, Normal Mood Skin: Warm, Dry, Intact, Normal Color, No Rash Lymphatic: No Adenopathy Course - Vital Signs Text/Narrative:: Current dental issues note necessity for oral surgical consultation. She will be sent home on Amoxicillin 500 mg qid, and may take NSAIDs for pain managment. Last Recorded V/S: Last Vital Signs Temp 36.1 C 06/08/20 18:31 Pulse 80 06/08/20 18:31 Resp 17 06/08/20 18:31 BP 163/52 H 06/08/20 18:31 Pulse Ox 99 06/08/20 18:31 Departure - Departure Time of Disposition: 19:58 Disposition: Home, Self-Care 01 Condition: Fair Clinical Impression: Dental caries extending into dentin - Discharge Information *PRESCRIPTION DRUG MONITORING PROGRAM REVIEWED*: Not Applicable *COPY OF PRESCRIPTION DRUG MONITORING REPORT IN PATIENT MARIBEL: Not Applicable Instructions: Preventive Dental Care, Adult, Dental Implant Surgery Referrals: PCP,None [Primary Care Provider] - Forms: ED Department Discharge Additional Instructions: please take amoxicillin 500gm po 4 times a day you may take Tylenol for pain please contact Clinic for oral health. Dr. Washburn [phone] for appointment Sepsis Event Note (ED) - Evaluation Sepsis Screening Result: No Definite Risk - Focused Exam Vital Signs: Vital Signs Temp Pulse Resp BP Pulse Ox 06/08/20 18:31 36.1 C 80 17 163/52 H 99 - Problem List & Annotations (1) Dental caries extending into dentin SNOMED Code(s): 458326585 Code(s): K02.62 - DENTAL CARIES ON SMOOTH SURFACE PENETRATING INTO DENTIN Status: Acute Annotation/Comment:: I dispensed Amoxicillin 500mg qid, NSAIDs for pain, and seek Oral Surgeon consult. - Problem List Review Problem List Initiated/Reviewed/Updated: Yes - Assessment/Plan Plan: Follow up with PCP and DDS.
== END 2020-06-08 19:48 | disposition home or self-care (01) ==
LOC: FB.ED 18:31
DX: K02.9 Dental caries, unspecified (principal); I10 Essential (primary) hypertension; E78.00 Pure hypercholesterolemia, unspecified; J44.9 Chronic obstructive pulmonary disease, unspecified; E11.40 Type 2 diabetes mellitus with diabetic neuropathy, unspecified; F41.9 Anxiety disorder, unspecified; M19.90 Unspecified osteoarthritis, unspecified site; F32.9 Major depressive disorder, single episode, unspecified; E03.9 Hypothyroidism, unspecified; F17.210 Nicotine dependence, cigarettes, uncomplicated; Z79.899 Other long term (current) drug therapy; Z79.82 Long term (current) use of aspirin; Z79.4 Long term (current) use of insulin
CPT/HCPCS: 99282; A9270; 99283

== ENCOUNTER 2020-12-09 16:23 | Emergency (ER) | payer MEDICARE, MEDICAID ==
[2020-12-09] MEDS ORDERED: methylPREDNISolone Sodium Succinate 125 MG/2 ML SDV IM ONE (16:59)
--- NOTE | 2020-12-09 17:06 | EDM.PDOC ---
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 has DM, on pills and insulin has peripheral neuropathy, take gabapentin qhs PE c/w L greater trochanteric bursitis, will obtain labs as precaution as pt had electrolyte abnormalities 1y ago Left Hip Pain Score (Numeric/FACES): 10 - Related Data Allergies Allergy/AdvReac Type Severity Reaction Status Date / Time No Known Allergies Allergy Verified 12/09/20 16:30 Home Meds: Home Meds Omeprazole 20 mg PO DAILY 11/01/13 [History] metFORMIN HCl [Metformin HCl] 850 mg PO BID 11/01/13 [History] Aspirin [Low Dose Aspirin EC] 81 mg PO DAILY 04/26/15 [History] Gabapentin [Neurontin] 600 mg PO BEDTIME 04/26/15 [History] Levothyroxine 75 mcg DAILY 04/26/15 [History] Multivitamin [Daily Multiple Vitamin] 1 tab PO DAILY 04/26/15 [History] .Breo Ellipta 200mcg/25mcg 1 puff INH DAILY 04/20/19 [History] .Vitamin D 1 tab PO TID 04/20/19 [History] Albuterol [Ventolin HFA] 2 puff INH Q4HR PRN 04/20/19 [History] Insulin Detemir [Levemir Flextouch] 60 units SQ BID MDD hasnt had any for a month 04/20/19 [History] Methylphenidate [Ritalin] 20 mg PO DAILY 12/07/19 [History] Mirtazapine 15 mg PO BEDTIME 12/07/19 [History] QUEtiapine [SEROquel] 200 mg PO BEDTIME 12/07/19 [History] glipiZIDE [Glucotrol] 10 mg PO DAILY 12/07/19 [History] lisinopriL [Lisinopril] 10 mg PO DAILY 12/07/19 [History] Zolpidem Tartrate [Ambien] 5 mg PO DAILY #15 tablet 12/08/19 [Rx] Magnesium Oxide [Magnesium] 400 mg PO BID #30 tablet 12/09/20 [Rx] predniSONE 20 mg PO DAILY #4 tab 12/09/20 [Rx] Past Medical History - Past Health History Medical/Surgical History: Denies Medical/Surgical History HEENT 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: Other (See Below) Other HEENT History: WEARS EYEGLASSES Cardiovascular 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: High Cholesterol, Hypertension Respiratory 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: COPD Genitourinary 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: Acute Renal Failure 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: , 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 Musculoskeletal 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: Arthritis Neurological 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: Neuropathy, Diabetic, Neuropathy, Peripheral Psychiatric 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: Anxiety, Depression Other Psychiatric History: insomnia Endocrine/Metabolic 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: Diabetes, Type II, Hypothyroidism, Other (See Below) - Infectious Disease History Infectious Disease 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: Chicken Pox, Measles, Shingles - Past Surgical History HEENT Surgical 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: None Cardiovascular Surgical 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: None Respiratory Surgical 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: None GI Surgical 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: Appendectomy, Cholecystectomy Female Surgical 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: Section, D&C Endocrine Surgical 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: None Neurological Surgical 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: None Musculoskeletal Surgical 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: None Social & Family History - Family History Family Medical History: No Pertinent Family History - Caffeine Use Caffeine Use: Reports: Coffee Review of Systems - Review of Systems Review Of Systems: See Below Constitutional: Reports: No Symptoms Eyes: Reports: No Symptoms Ears: Reports: No Symptoms Nose: Reports: No Symptoms Mouth/Throat: Reports: No Symptoms Respiratory: Reports: No Symptoms Cardiovascular: Reports: No Symptoms GI/Abdominal: Reports: No Symptoms Genitourinary: Reports: No Symptoms Musculoskeletal: Reports: Leg Pain, Other (hip pain) Skin: Reports: No Symptoms Neurological: Reports: No Symptoms Psychiatric: Reports: No Symptoms ED EXAM, GENERAL - Physical Exam Exam: See Below Exam Limited By: No Limitations General Appearance: Alert, WD/WN, No Apparent Distress Nose: Normal Inspection Head: Atraumatic, Normocephalic Neck: Normal Inspection, Supple, Non-Tender, Full Range of Motion. No: Lymphadenopathy (R), Lymphadenopathy (L) Respiratory/Chest: No Respiratory Distress Back Exam: Other (no point tender l-spine or SI joints, mild tender L iliac crest, no spasm) Extremities: Other (no edema, calves and thighs nontender, 1+ tender L greater trochanter) Neurological: Alert, Oriented, CN II-XII Intact, Normal Cognition, No Motor/Sensory Deficits Psychiatric: Normal Affect, Normal Mood Skin Exam: Warm, Dry, Intact, Normal Color, No Rash Lymphatic: No Adenopathy Course - Vital Signs Last Recorded V/S: Last Vital Signs Temp 37.2 C 12/09/20 16:23 Pulse 80 12/09/20 18:17 Resp 18 12/09/20 18:17 BP 139/77 12/09/20 18:17 Pulse Ox 97 12/09/20 18:17 - Orders/Labs/Meds Orders: Active Orders 24 hr Category Date Time Status Magnesium Sulfate/Water [Magnesium Sulfate in Water 4 Med 12/09/20 17:59 Ordered GM/50 ML] 4 gm Premix Bag 1 bag IV ONETIME Sodium Chloride 0.9% [Normal Saline] 500 ml Med 12/09/20 18:06 Active IV ONETIME Medication Orders Magnesium Sulfate 4 gm/ Premix 50 mls @ 12.5 mls/hr IV ONETIME ONE Stop: 12/09/20 21:58 Last Infusion: 12/09/20 18:35 Dose: 25 mls/hr Documented by: Admin: 12/09/20 18:23 Dose: 12.5 mls/hr Documented by: PRAKASH Sodium Chloride (Normal Saline) 500 mls @ 50 mls/hr IV ONETIME ONE Stop: 12/10/20 04:05 Last Admin: 12/09/20 18:23 Dose: 50 mls/hr Documented by: PRAKASH Labs: Laboratory Tests 12/09/20 12/09/20 12/09/20 Range/Units 17:15 17:15 17:15 WBC 9.0 (3.0-10.3) x10-3/uL RBC 4.40 (3.60-5.20) x10(6)uL Hgb 13.4 (11.4-15.5) g/dL Hct 40.1 (34.2-48.2) % MCV 91.1 (76.7-100.5) fL MCH 30.5 (23.9-33.9) pg MCHC 33.4 (31.9-34.8) g/dL RDW 14.3 (12.3-16.5) % Plt Count 341 (151-488) x10(3)uL MPV 7.5 (7.1-12.4) fL Neut % (Auto) 59.0 (30.8-76.2) % Lymph % (Auto) 29.8 (18.4-52.1) % [place] % (Auto) 7.1 (4.4-15.7) % Eos % (Auto) 3.5 (0.6-8.1) % Baso % (Auto) 0.6 (0.2-1.5) % Neut # (Auto) 5.3 (1.5-6.3) x10-3/uL Lymph # (Auto) 2.7 (1.0-4.4) x10-3/uL [place] # (Auto) 0.6 (0.3-1.0) x10-3/uL Eos # (Auto) 0.3 (0.0-0.8) x10-3/uL Baso # (Auto) 0.1 (0.0-0.1) x10-3/uL Sodium 143 (135-145) mmol/L Potassium 4.1 (3.5-5.3) mmol/L Chloride 103 (100-110) mmol/L Carbon Dioxide 27 (21-32) mmol/L BUN 24 H D (7-18) mg/dL Creatinine 1.4 H (0.55-1.02) mg/dL Est Cr Clr Drug Dosing 30.23 mL/min Estimated GFR (MDRD) 38 L (>60) BUN/Creatinine Ratio 17.1 (9-20) Glucose 70 L D (80-116) mg/dL Calcium 8.3 L D (8.6-10.2) mg/dL Magnesium 1.1 L* (1.8-2.5) mg/dL Total Bilirubin 0.2 (0.1-1.3) mg/dL AST 37 H D (5-25) IU/L ALT 28 D (12-36) U/L Alkaline Phosphatase 73 (56-112) IU/L C-Reactive Protein < 0.2 L (0.5-0.9) mg/dL Total Protein 7.4 (6.0-8.0) g/dL Albumin 3.8 (3.2-4.6) g/dL Globulin 3.6 g/dL Albumin/Globulin Ratio 1.1 Meds: Medications Generic Name Dose Route Start Last Admin Trade Name Freq PRN Reason Stop Dose Admin Magnesium Sulfate 4 gm/ Premix 50 mls @ 12.5 mls/hr 12/09/20 17:59 12/09/20 18:35 IV 12/09/20 21:58 25 mls/hr ONETIME ONE Infusion Sodium Chloride 500 mls @ 50 mls/hr 12/09/20 18:06 12/09/20 18:23 Normal Saline IV 12/10/20 04:05 50 mls/hr ONETIME ONE Administration Discontinued Medications Generic Name Dose Route Start Last Admin Trade Name Freq PRN Reason Stop Dose Admin Methylprednisolone Sodium Succinate 125 mg 12/09/20 16:59 12/09/20 17:23 Methylprednisolone Sodium Succinate 125 Mg/2 Ml Sdv IM 12/09/20 17:00 125 mg ONETIME ONE Administration Prednisone 20 mg 12/09/20 17:59 12/09/20 18:22 Prednisone 20 Mg Tab PO 12/09/20 18:00 20 mg ONETIME ONE Administration - Re-Assessments/Exams Free Text/Narrative Re-Assessment/Exam: 12/09/20 18:58 hx/PE c/w L greater troch bursitis cause of low Mg not clear, pain does not appear to be muscle based, yet replacing Mg may help with pain no evidence of radiculopathy or DJD pt agrees to f/u with PCP Dr Hernandez Departure - Departure Time of Disposition: 19:45 Disposition: Home, Self-Care 01 Condition: Good Clinical Impression: Greater trochanteric bursitis of left hip, Hypomagnesemia, Hypocalcemia - Discharge Information *PRESCRIPTION DRUG MONITORING PROGRAM REVIEWED*: Not Applicable *COPY OF PRESCRIPTION DRUG MONITORING REPORT IN PATIENT MARIBEL: Not Applicable Prescriptions: Magnesium Oxide [Magnesium] 400 mg PO BID #30 tablet predniSONE 20 mg PO DAILY #4 tab Instructions: Hip Bursitis, Hypomagnesemia Referrals: Stevenson Hernandez MD [Primary Care Provider] - Additional Instructions: As Celebrex can affect the kidneys, do not continue after your complete the 2 week course. Take acetaminophen 500 mg 2 tabs 4 times a day. No more than 8 tabs in 24 hours, no more than 2 tabs at a time. For inflammation and pain, take prednisone 20 mg 1 tab daily for 4 days. To replace magnesium, take magnesium oxide 400 mg 1 tab 2 times a day. Use ice for 10 minutes 4 times a day. See Dr Hernandez in 2-3 days for further recommendations. Sepsis Event Note (ED) - Evaluation Sepsis Screening Result: No Definite Risk - Focused Exam Vital Signs: Vital Signs Temp Pulse Resp BP Pulse Ox 12/09/20 18:17 80 18 139/77 97 12/09/20 16:23 37.2 C 90 18 148/74 H 98 - My Orders Last 24 Hours: My Active Orders 12/09/20 17:59 Magnesium Sulfate/Water [Magnesium Sulfate in Water 4 GM/50 ML] 4 gm Premix Bag 1 bag IV ONETIME 12/09/20 18:06 Sodium Chloride 0.9% [Normal Saline] 500 ml IV ONETIME - Assessment/Plan Last 24 Hours: My Active Orders 12/09/20 17:59 Magnesium Sulfate/Water [Magnesium Sulfate in Water 4 GM/50 ML] 4 gm Premix Bag 1 bag IV ONETIME 12/09/20 18:06 Sodium Chloride 0.9% [Normal Saline] 500 ml IV ONETIME
[2020-12-09] MEDS ORDERED: Magnesium Sulfate/Water 4 GM in Premix Bag 1 BAG IV ONE (17:59)
[2020-12-09] MEDS ORDERED: predniSONE 20 MG Tab PO ONE (17:59)
[2020-12-09] MEDS ORDERED: Sodium Chloride 0.9% 500 ML IV ONE (18:06)
[2020-12-09 21:42] VITALS: BP 149/77; PULSE 94
== END 2020-12-09 20:40 | disposition home or self-care (01) ==
LOC: FB.ED 16:23
DX: M70.62 Trochanteric bursitis, left hip (principal); E83.42 Hypomagnesemia; E83.51 Hypocalcemia; I10 Essential (primary) hypertension; J44.9 Chronic obstructive pulmonary disease, unspecified; M19.90 Unspecified osteoarthritis, unspecified site; E11.42 Type 2 diabetes mellitus with diabetic polyneuropathy; E03.9 Hypothyroidism, unspecified; Z79.899 Other long term (current) drug therapy; Z79.82 Long term (current) use of aspirin; Z79.4 Long term (current) use of insulin
CPT/HCPCS: 36415; 80053; 83735; 85025; 86140; 96365; 96366; 96372; 99283; 99283-25; J2930; J3475; J7040; J7512

== ENCOUNTER 2020-12-25 19:47 | Emergency (ER) | payer MEDICAID, MEDICARE ==
[2020-12-25] MEDS ORDERED: Polyethylene Glycol 3350 Powder 17 GM Packet PO ONE (20:31)
--- NOTE | 2020-12-25 20:36 | EDM.PDOC ---
ED HPI GENERAL MEDICAL PROBLEM - General Chief Complaint: General Stated Complaint: CONSTIPATION Time Seen by Provider: 12/25/20 20:25 Source of Information: Reports: Patient, Old Records, RN History Limitations: Reports: No Limitations - History of Present Illness INITIAL COMMENTS - FREE TEXT/NARRATIVE: 65 yo female presents with rectal pressure x 2 days getting worse. No BM for this same interval . Tried oral Dulcolax without benefit. No nausea or vomiting. She can feel the stool at her rectum, but cannot pass it. Onset: Gradual Onset Date: 12/23/20 Duration: Day(s): (2+), Getting Worse Location: Reports: Pelvis (rectum) Quality: Reports: Pressure Severity: Moderate Improves with: Reports: Rest Worsens with: Reports: Other (straining at stool) Context: Reports: Other (See HPI) Associated Symptoms: Reports: No Other Symptoms Treatments SUPERVISOR CUSTOMER SERVICES: Reports: Other (see below) (See HPI) Rectal Pain Score (Numeric/FACES): 5 - Related Data Allergies Allergy/AdvReac Type Severity Reaction Status Date / Time hydrocodone Allergy Confusion Verified 12/25/20 20:09 Home Meds: Home Meds Omeprazole 20 mg PO DAILY 11/01/13 [History] metFORMIN HCl [Metformin HCl] 850 mg PO BID 11/01/13 [History] Aspirin [Low Dose Aspirin EC] 81 mg PO DAILY 04/26/15 [History] Gabapentin [Neurontin] 600 mg PO BEDTIME 04/26/15 [History] Levothyroxine 75 mcg DAILY 04/26/15 [History] Multivitamin [Daily Multiple Vitamin] 1 tab PO DAILY 04/26/15 [History] .Breo Ellipta 200mcg/25mcg 1 puff INH DAILY 04/20/19 [History] Albuterol [Ventolin HFA] 2 puff INH Q4HR PRN 04/20/19 [History] Methylphenidate [Ritalin] 20 mg PO DAILY 12/07/19 [History] Mirtazapine 15 mg PO BEDTIME 12/07/19 [History] QUEtiapine [SEROquel] 300 mg PO BEDTIME 12/07/19 [History] glipiZIDE [Glucotrol] 10 mg PO DAILY 12/07/19 [History] lisinopriL [Lisinopril] 10 mg PO DAILY 12/07/19 [History] Insulin Isophane NPH, Human [NovoLIN N] 30 units DAILY 12/25/20 [History] Rosuvastatin [Crestor] 10 mg PO BEDTIME 12/25/20 [History] Semaglutide [Ozempic] 0.5 mg SQ FR 12/25/20 [History] Venlafaxine HCl [Venlafaxine ER] 150 mg DAILY 12/25/20 [History] Zolpidem Tartrate [Ambien] 5 mg PO BEDTIME 12/25/20 [History] hydroCHLOROthiazide [Hydrochlorothiazide] 12.5 mg PO DAILY 12/25/20 [History] Past Medical History - Past Health History Medical/Surgical History: Denies Medical/Surgical History HEENT 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: Other (See Below) Other HEENT History: WEARS EYEGLASSES Cardiovascular 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: High Cholesterol, Hypertension, SOB on Exertion Respiratory 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: COPD Gastrointestinal 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: Chronic Constipation Genitourinary 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: Acute Renal Failure MATERIAL HANDLER 1ST SHIFT 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: , Spontaneous Other MATERIAL HANDLER 1ST SHIFT History: Musculoskeletal 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: Arthritis Neurological 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: Migraines, Neuropathy, Diabetic, Neuropathy, Peripheral Psychiatric 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: Anxiety, Depression Other Psychiatric History: insomnia Endocrine/Metabolic 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: Diabetes, Type II, Hypothyroidism, Obesity/BMI 30+, Other (See Below) Hematologic 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: Blood Transfusion(s) - Infectious Disease History Infectious Disease 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: Chicken Pox, Measles, Shingles - Past Surgical History Cardiovascular Surgical 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: None Respiratory Surgical 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: None GI Surgical 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: Appendectomy, Cholecystectomy, EGD Female Surgical 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: Section, D&C, Hysterectomy, Salpingo-Oophorectomy Other Female Surgeries/Procedures: CS x 2 Endocrine Surgical 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: None Neurological Surgical 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: None Musculoskeletal Surgical 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: None Social & Family History - Family History Family Medical History: No Pertinent Family History - Caffeine Use Caffeine Use: Reports: Soda ED ROS GENERAL - Review of Systems Review Of Systems: See Below Constitutional: Reports: No Symptoms HEENT: Reports: No Symptoms Respiratory: Reports: No Symptoms Cardiovascular: Reports: No Symptoms GI/Abdominal: Reports: Constipation : Reports: No Symptoms Musculoskeletal: Reports: No Symptoms Skin: Reports: No Symptoms ED EXAM, GENERAL - Physical Exam Exam: See Below Exam Limited By: No Limitations General Appearance: Alert, WD/WN, No Apparent Distress Eye Exam: Bilateral Eye: Normal Inspection Ears: Normal External Exam, Hearing Grossly Normal Ear Exam: Bilateral Ear: Auricle Normal, Canal Normal Nose: Normal Inspection, No Blood Throat/Mouth: Normal Inspection, Normal Lips, Normal Voice, No Airway Compromise Head: Atraumatic, Normocephalic Neck: Normal Inspection Respiratory/Chest: No Respiratory Distress, Lungs Clear, Normal Breath Sounds, No Accessory Muscle Use Cardiovascular: Regular Rate, Rhythm, No Edema GI/Abdominal: Normal Bowel Sounds, Soft, Non-Tender, No Distention Rectal (Female) Exam: Deferred Neurological: Alert, Oriented, CN II-XII Intact, Normal Cognition, No Motor/Sensory Deficits Psychiatric: Normal Affect, Normal Mood Skin Exam: Warm, Dry, Intact, Normal Color, No Rash Course - Vital Signs Last Recorded V/S: Last Vital Signs Temp 36.8 C 12/25/20 20:00 Pulse 102 H 12/25/20 20:00 Resp 20 12/25/20 20:00 BP 139/100 H 12/25/20 20:00 Pulse Ox 97 12/25/20 20:00 - Orders/Labs/Meds Meds: Medications Discontinued Medications Generic Name Dose Route Start Last Admin Trade Name Idris PRN Reason Stop Dose Admin Lidocaine HCl Confirm 12/25/20 21:21 12/25/20 21:53 Lidocaine 2% Hcl 6 Ml Jel.Pf.Evelin Administered 12/25/20 21:22 Not Given Dose 6 ml .ROUTE .STK-MED ONE Lidocaine HCl 6 ml 12/25/20 21:38 12/25/20 21:40 Lidocaine 2% Hcl 6 Ml Jel.Pf.Evelin .XX 12/25/20 21:39 6 ml ONETIME ONE Administration Polyethylene Glycol 34 gm 12/25/20 20:31 12/25/20 21:38 Polyethylene Glycol 3350 Powder 17 Gm Packet PO 12/25/20 20:32 34 gm ONETIME ONE Administration Sodium Biphosphate/Sodium Phosphate 133 ml 12/25/20 21:53 Sodium Phosphate,Monobasic/Sodium Phosphate,Dibasic Enema 133 Ml Bottle RECTAL 12/25/20 21:54 ONETIME ONE - Re-Assessments/Exams Free Text/Narrative Re-Assessment/Exam: 12/25/20 22:15 Good results, OK for discharge Departure - Departure Time of Disposition: 22:15 Disposition: Home, Self-Care 01 Condition: Good Clinical Impression: Fecal impaction in rectum Constipation Qualifiers: Constipation type: slow transit constipation Qualified Code(s): K59.01 - Slow transit constipation - Discharge Information *PRESCRIPTION DRUG MONITORING PROGRAM REVIEWED*: Not Applicable *COPY OF PRESCRIPTION DRUG MONITORING REPORT IN PATIENT MARIBEL: Not Applicable Instructions: Constipation, Adult, [id number] Referrals: Stevenson Hernandez MD [Primary Care Provider] - Forms: ED Department Discharge Additional Instructions: Take Miralax daily per package instructions to prevent a recurrence of tonight's events. Eat a high fiber diet. Sepsis Event Note (ED) - Evaluation Sepsis Screening Result: No Definite Risk - Focused Exam Vital Signs: Vital Signs Temp Pulse Resp BP Pulse Ox 12/25/20 20:00 36.8 C 102 H 20 139/100 H 97
[2020-12-25] MEDS ORDERED: Lidocaine 2% HCl 6 ML JEL.PF.APP ONE ×2 (21:21→21:38)
[2020-12-25] MEDS ORDERED: Sodium Phosphate,Monobasic/Sodium Phosphate,Dibasic Enema 133 ML Bottle RECTAL ONE (21:53)
[2020-12-26 01:32] VITALS: BP 149/69; PULSE 95
== END 2020-12-25 22:40 | disposition home or self-care (01) ==
LOC: FB.ED 19:47
DX: K56.41 Fecal impaction (principal); E78.00 Pure hypercholesterolemia, unspecified; I10 Essential (primary) hypertension; J44.9 Chronic obstructive pulmonary disease, unspecified; E03.9 Hypothyroidism, unspecified; E66.9 Obesity, unspecified; Z68.30 Body mass index [BMI] 30.0-30.9, adult; Z88.5 Allergy status to narcotic agent; E11.40 Type 2 diabetes mellitus with diabetic neuropathy, unspecified; Z79.4 Long term (current) use of insulin; Z79.899 Other long term (current) drug therapy
CPT/HCPCS: 99283; A9270-GY

== ENCOUNTER 2021-03-27 20:16 | Emergency (ER) | payer MEDICAID, MEDICARE ==
[2021-03-27] MEDS ORDERED: Polyethylene Glycol 3350 Powder 17 GM Packet PO STA (20:38)
--- NOTE | 2021-03-27 20:38 | EDM.PDOC ---
ED HPI GENERAL MEDICAL PROBLEM - General Chief Complaint: General Stated Complaint: CONSTIPATION Time Seen by Provider: 03/27/21 20:30 Source of Information: Reports: Patient History Limitations: Reports: No Limitations - History of Present Illness INITIAL COMMENTS - FREE TEXT/NARRATIVE: Patient presented to the ED because of constipation for 4 days. She also c/o nausea but no vomiting. No abdominal pain or urinary symptoms. - Related Data Allergies Allergy/AdvReac Type Severity Reaction Status Date / Time hydrocodone Allergy Confusion Verified 03/27/21 21:21 Home Meds: Home Meds Omeprazole 20 mg PO DAILY 11/01/13 [History] metFORMIN HCl [Metformin HCl] 850 mg PO BID 11/01/13 [History] Aspirin [Low Dose Aspirin EC] 81 mg PO DAILY 04/26/15 [History] Gabapentin [Neurontin] 600 mg PO BEDTIME 04/26/15 [History] Levothyroxine 75 mcg DAILY 04/26/15 [History] Multivitamin [Daily Multiple Vitamin] 1 tab PO DAILY 04/26/15 [History] .Breo Ellipta 200mcg/25mcg 1 puff INH DAILY 04/20/19 [History] Albuterol [Ventolin HFA] 2 puff INH Q4HR PRN 04/20/19 [History] Mirtazapine 15 mg PO BEDTIME 12/07/19 [History] QUEtiapine [SEROquel] 300 mg PO BEDTIME 12/07/19 [History] glipiZIDE [Glucotrol] 10 mg PO DAILY 12/07/19 [History] lisinopriL [Lisinopril] 10 mg PO DAILY 12/07/19 [History] Insulin Isophane NPH, Human [NovoLIN N] 30 units DAILY 12/25/20 [History] Rosuvastatin [Crestor] 10 mg PO BEDTIME 12/25/20 [History] Semaglutide [Ozempic] 0.5 mg SQ FR 12/25/20 [History] Venlafaxine HCl [Venlafaxine ER] 150 mg DAILY 12/25/20 [History] Zolpidem Tartrate [Ambien] 5 mg PO BEDTIME 12/25/20 [History] hydroCHLOROthiazide [Hydrochlorothiazide] 12.5 mg PO DAILY 12/25/20 [History] Past Medical History - Past Health History Medical/Surgical History: Denies Medical/Surgical History HEENT 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: Other (See Below) Other HEENT History: WEARS EYEGLASSES Cardiovascular 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: High Cholesterol, Hypertension, SOB on Exertion Respiratory 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: COPD Gastrointestinal 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: Chronic Constipation Genitourinary 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: Acute Renal Failure SHOT HOLE SHOOTER 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: , Spontaneous Other SHOT HOLE SHOOTER History: Musculoskeletal 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: Arthritis Neurological 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: Migraines, Neuropathy, Diabetic, Neuropathy, Peripheral Psychiatric 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: Anxiety, Depression Other Psychiatric History: insomnia Endocrine/Metabolic 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: Diabetes, Type II, Hypothyroidism, Obesity/BMI 30+, Other (See Below) Hematologic 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: Blood Transfusion(s) - Infectious Disease History Infectious Disease 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: Chicken Pox, Measles, Shingles - Past Surgical History Cardiovascular Surgical 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: None Respiratory Surgical 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: None GI Surgical 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: Appendectomy, Cholecystectomy, EGD Female Surgical 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: Section, D&C, Hysterectomy, Salpingo-Oophorectomy Other Female Surgeries/Procedures: CS x 2 Endocrine Surgical 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: None Neurological Surgical 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: None Musculoskeletal Surgical 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: None Social & Family History - Family History Family Medical History: No Pertinent Family History - Caffeine Use Caffeine Use: Reports: Coffee ED ROS GENERAL - Review of Systems Review Of Systems: See Below Constitutional: Reports: No Symptoms HEENT: Reports: No Symptoms Respiratory: Reports: No Symptoms Cardiovascular: Reports: No Symptoms Endocrine: Reports: No Symptoms GI/Abdominal: Reports: Constipation, Nausea : Reports: No Symptoms Musculoskeletal: Reports: No Symptoms Skin: Reports: No Symptoms Neurological: Reports: No Symptoms Psychiatric: Reports: No Symptoms ED EXAM, GENERAL - Physical Exam Exam: See Below Exam Limited By: Altered Mental Status General Appearance: Alert, No Apparent Distress Ears: Normal External Exam, Normal Canal, Hearing Grossly Normal, Normal TMs Nose: Normal Inspection, Normal Mucosa, No Blood Throat/Mouth: Normal Inspection, Normal Lips, Normal Teeth, Normal Gums, Normal Oropharynx, Normal Voice Head: Atraumatic, Normocephalic Neck: Normal Inspection, Supple, Non-Tender, Full Range of Motion Respiratory/Chest: No Respiratory Distress, Lungs Clear, Normal Breath Sounds, No Accessory Muscle Use, Chest Non-Tender Cardiovascular: Normal Peripheral Pulses, Regular Rate, Rhythm, No Edema, No Gallop, No JVD, No Murmur, No Rub GI/Abdominal: Normal Bowel Sounds, Soft, Non-Tender, No Organomegaly, No Distention, No Abnormal Bruit, No Mass, Pelvis Stable Back Exam: Normal Inspection, Full Range of Motion Extremities: Normal Inspection, Normal Range of Motion, Non-Tender, No Pedal Edema, Normal Capillary Refill Neurological: Alert, Oriented, CN II-XII Intact, Normal Cognition Psychiatric: Normal Affect, Normal Mood Skin Exam: Warm, Normal Color Course - Vital Signs Text/Narrative:: Zofran ODT 4 mg PO x1 Senna S 2 PO x1 Miralax 34 gm PO x1 Last Recorded V/S: Last Vital Signs Temp 35.9 C L 03/27/21 20:25 Pulse 91 03/27/21 20:25 Resp 18 03/27/21 20:25 BP 151/68 H 03/27/21 20:25 Pulse Ox 96 03/27/21 20:25 - Orders/Labs/Meds Meds: Medications Discontinued Medications Generic Name Dose Route Start Last Admin Trade Name Idris PRN Reason Stop Dose Admin Ondansetron HCl 4 mg 03/27/21 20:43 03/27/21 20:46 Ondansetron 4 Mg Tab.Dis PO 03/27/21 20:44 4 mg NOW STA Administration Polyethylene Glycol 34 gm 03/27/21 20:38 03/27/21 20:50 Polyethylene Glycol 3350 Powder 17 Gm Packet PO 03/27/21 20:39 34 gm NOW STA Administration Polyethylene Glycol Confirm 03/27/21 20:52 03/27/21 21:18 Polyethylene Glycol 3350 Powder 17 Gm Packet Administered 03/27/21 20:53 Not Given Dose 17 gm .ROUTE .STK-MED ONE Senna/Docusate Sodium 2 tab 03/27/21 20:38 03/27/21 20:49 Docusate Sodium/Sennosides 50-8.6 Mg Tab PO 03/27/21 20:39 2 tab NOW STA Administration Departure - Departure Time of Disposition: 21:00 Disposition: Home, Self-Care 01 Condition: Good Clinical Impression: Constipation - Discharge Information Instructions: Constipation, Adult, [id number] Referrals: Stevenson Hernandez MD [Primary Care Provider] - Forms: ED Department Discharge Additional Instructions: Please read discharge instructions on constipation But the following medication at [facility](over the counter) Miralax-dissolve 2 scoops of miralax in a glass of water and drink the entire solution Magnesium citrate-drink the entire bottle If didn't work on the first day, repeat it the following day until you have a good bowel movement. Follow up as needed Sepsis Event Note (ED) - Focused Exam Vital Signs: Vital Signs Temp Pulse Resp BP Pulse Ox 03/27/21 20:25 35.9 C L 91 18 151/68 H 96
[2021-03-27] MEDS ORDERED: Ondansetron 4 MG Tab.DIS PO STA (20:43)
[2021-03-27 20:44] VITALS: BP 151/68; PULSE 91
[2021-03-27] MEDS ORDERED: Polyethylene Glycol 3350 Powder 17 GM Packet ONE (20:52)
== END 2021-03-27 21:05 | disposition home or self-care (01) ==
LOC: FB.ED 20:16
DX: K59.00 Constipation, unspecified (principal); E78.00 Pure hypercholesterolemia, unspecified; I10 Essential (primary) hypertension; J44.9 Chronic obstructive pulmonary disease, unspecified; M19.90 Unspecified osteoarthritis, unspecified site; E11.42 Type 2 diabetes mellitus with diabetic polyneuropathy; E03.9 Hypothyroidism, unspecified; E66.9 Obesity, unspecified; Z68.31 Body mass index [BMI] 31.0-31.9, adult; Z88.5 Allergy status to narcotic agent; Z79.82 Long term (current) use of aspirin; Z79.4 Long term (current) use of insulin; Z79.899 Other long term (current) drug therapy
CPT/HCPCS: 99283; A9270

== ENCOUNTER 2021-03-28 13:31 | Emergency (ER) | payer MEDICARE ==
--- NOTE | 2021-03-28 13:36 | EDM.PDOC ---
ED HPI GENERAL MEDICAL PROBLEM - General Stated Complaint: CONSTIPATION Time Seen by Provider: 03/28/21 13:35 Source of Information: Reports: Patient History Limitations: Reports: No Limitations - History of Present Illness INITIAL COMMENTS - FREE TEXT/NARRATIVE: 65-year-old female who reports she has had no bowel movement for the past 5 days. She was seen here yesterday for the same complaint. I refer the reader of this note to Dr. Daily's ED note from yesterday. The patient reports that she has been having ever-increasing rectal and perineal pain with the urge to defecate without being able to have a bowel movement she reports that the pain seemed to come in waves with her as a constant pain and feeling of fullness there as well pain is a sharp pain and a cramping pain when she has severe pain and the feeling that she has to have a bowel movement. She states at present the pain as a 7/10 but it does go up to 10/10 at its worst. She has had some nausea with this but no vomiting. She has been eating and drinking normally. She has had normal urination. No fevers or chills. She has had problems with constipation in the past. Unfortunately, she was unable to get any MiraLAX that she can use for treatment that was recommended by Dr. Daily. She presents to the emergency department via ambulance from her home with the continuing pain in her rectal and perineal area. There are no other associated signs or symptoms. There are no other modifying factors. Onset: Other (Ongoing for the past 5 days.) Duration: Getting Worse Location: Reports: Abdomen, Other (Perianal, perineal and rectal area) Quality: Reports: Sharp, Other (Cramping). Denies: Pressure Improves with: Reports: None Worsens with: Reports: None Context: Reports: Other (As above.) Associated Symptoms: Reports: No Other Symptoms (Except as above) Treatments LODE MINER BLASTING: Reports: Other (see below) (Nothing) Abdomen Pain Score (Numeric/FACES): 10 - Related Data Allergies Allergy/AdvReac Type Severity Reaction Status Date / Time hydrocodone Allergy Confusion Verified 03/27/21 21:21 Home Meds: Home Meds Omeprazole 20 mg PO DAILY 11/01/13 [History] metFORMIN HCl [Metformin HCl] 850 mg PO BID 11/01/13 [History] Aspirin [Low Dose Aspirin EC] 81 mg PO DAILY 04/26/15 [History] Gabapentin [Neurontin] 600 mg PO BEDTIME 04/26/15 [History] Levothyroxine 75 mcg DAILY 04/26/15 [History] Multivitamin [Daily Multiple Vitamin] 1 tab PO DAILY 04/26/15 [History] .Breo Ellipta 200mcg/25mcg 1 puff INH DAILY 04/20/19 [History] Albuterol [Ventolin HFA] 2 puff INH Q4HR PRN 04/20/19 [History] Mirtazapine 15 mg PO BEDTIME 12/07/19 [History] QUEtiapine [SEROquel] 300 mg PO BEDTIME 12/07/19 [History] glipiZIDE [Glucotrol] 10 mg PO DAILY 12/07/19 [History] lisinopriL [Lisinopril] 10 mg PO DAILY 12/07/19 [History] Insulin Isophane NPH, Human [NovoLIN N] 30 units DAILY 12/25/20 [History] Rosuvastatin [Crestor] 10 mg PO BEDTIME 12/25/20 [History] Semaglutide [Ozempic] 0.5 mg SQ FR 12/25/20 [History] Venlafaxine HCl [Venlafaxine ER] 150 mg DAILY 12/25/20 [History] Zolpidem Tartrate [Ambien] 5 mg PO BEDTIME 12/25/20 [History] hydroCHLOROthiazide [Hydrochlorothiazide] 12.5 mg PO DAILY 12/25/20 [History] Past Medical History HEENT 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: Impaired Vision Cardiovascular 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: High Cholesterol, Hypertension Respiratory 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: COPD Gastrointestinal 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: Chronic Constipation Genitourinary 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: Acute Renal Failure PSYCHODRAMATIST 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: Spontaneous Other PSYCHODRAMATIST History: Musculoskeletal 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: Arthritis Neurological 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: Migraines, Neuropathy, Diabetic, Neuropathy, Peripheral Psychiatric 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: Anxiety, Depression, Other (See Below) Other Psychiatric History: Insomnia. Endocrine/Metabolic 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: Diabetes, Type II, Hypothyroidism, Obesity/BMI 30+ Hematologic 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: Blood Transfusion(s) - Infectious Disease History Infectious Disease 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: Chicken Pox, Measles, Shingles - Past Surgical History GI Surgical 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: Appendectomy, Cholecystectomy, EGD Female Surgical 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: Section, D&C, Hysterectomy, Salpingo-Oophorectomy Other Female Surgeries/Procedures: CS x 2 Social & Family History - Tobacco Use Tobacco Use Status *Q: Current Every Day Tobacco User - Caffeine Use Caffeine Use: Reports: Coffee - Alcohol Use Alcohol Use History: No - Living Situation & Occupation Occupation: Retired ED ROS GENERAL - Review of Systems Review Of Systems: See Below Constitutional: Denies: Fever, Chills HEENT: Denies: Throat Pain, Throat Swelling Respiratory: Denies: Shortness of Breath, Cough Cardiovascular: Denies: Chest Pain, Palpitations, Syncope Endocrine: Denies: Polydypsia, Polyuria GI/Abdominal: Reports: Abdominal Pain, Constipation, Nausea. Denies: Vomiting : Denies: Dysuria, Flank Pain, Hematuria Musculoskeletal: Denies: Back Pain, Leg Pain Skin: Denies: Diaphoresis, Rash Neurological: Denies: Confusion, Dizziness Psychiatric: Denies: Anxiety Hematologic/Lymphatic: Denies: Easy Bleeding, Easy Bruising ED EXAM, GENERAL - Physical Exam Exam: See Below Exam Limited By: No Limitations General Appearance: Alert, WD/WN, Moderate Distress Eye Exam: Bilateral Eye: EOMI, Normal Inspection, PERRL Ears: Normal External Exam, Hearing Grossly Normal Ear Exam: Bilateral Ear: Auricle Normal Nose: Normal Inspection, Normal Mucosa, No Blood Throat/Mouth: Normal Inspection, Normal Lips, Normal Oropharynx, Normal Voice, No Airway Compromise, Other (Edentulous) Head: Atraumatic, Normocephalic Neck: Normal Inspection, Supple, Non-Tender, Full Range of Motion Respiratory/Chest: No Respiratory Distress, Lungs Clear, Normal Breath Sounds, No Accessory Muscle Use, Chest Non-Tender Cardiovascular: Normal Peripheral Pulses, Regular Rate, Rhythm, No Murmur Peripheral Pulses: 2+: Radial (L), Radial (R), Dorsalis Pedis (L), Dorsalis Pedi s (R) GI/Abdominal: Normal Bowel Sounds, Soft, Non-Tender, Pelvis Stable Back Exam: Normal Inspection, Full Range of Motion. No: CVA Tenderness (R), CVA Tenderness (L) Extremities: Normal Inspection, Normal Range of Motion Neurological: Alert, Oriented, CN II-XII Intact, Normal Cognition, No Motor/ Sensory Deficits Psychiatric: Normal Affect Skin Exam: Warm, Dry, Intact, Normal Color, No Rash Course - Vital Signs Last Recorded V/S: Last Vital Signs Temp 35.6 C L 03/28/21 13:48 Pulse 82 03/28/21 13:48 Resp 16 03/28/21 13:48 BP 161/83 H 03/28/21 13:48 Pulse Ox 93 L 03/28/21 13:48 - Orders/Labs/Meds Meds: Medications Discontinued Medications Generic Name Dose Route Start Last Admin Trade Name Idris PRN Reason Stop Dose Admin Sodium Biphosphate/Sodium Phosphate 133 ml 03/28/21 13:52 03/28/21 14:05 Sodium Phosphate,Monobasic/Sodium Phosphate,Dibasic Enema 133 Ml Bottle RECTAL 03/28/21 13:53 133 ml ONETIME ONE Administration - Re-Assessments/Exams Free Text/Narrative Re-Assessment/Exam: 03/28/21 15:15: Patient had no concerning signs or symptoms and did appear to be constipated with rectal and anal and perineal pressure. Was given a fleets enema and initially had little results from this but has since had fairly good bowel movement results but is still trying to pass some more stool. 03/28/21 15:45: Patient has passed some more stool and feels much improved from previous. She is really desiring to go home at this point. Will give her another dose of MiraLAX today to help further resolve her constipation. Patient has remained hemodynamically stable with blood pressure is 130 systolic and a pulse in the 70 and 80s. Departure - Departure Time of Disposition: 15:45 Disposition: Home, Self-Care 01 Condition: Good Clinical Impression: Fecal impaction in rectum Constipation Qualifiers: Constipation type: unspecified constipation type Qualified Code(s): K59.00 - Constipation, unspecified - Discharge Information Instructions: Constipation, Adult, [id number], Fecal Impaction Additional Instructions: You appear to have a fecal impaction in your rectum associated with constipation. This was relieved by the enema that you were given. I feel that you still have some constipation and you should take 1 dose of MiraLAX today and then another dose in the morning. You also need to continue to increase your fluid intake. And, going forward, you should make sure you have some MiraLAX at home so that if you begin to have problems with constipation you can start taking this MiraLAX up to 3 doses in a 24-hour period to help relieve your constipation. Follow-up with your primary provider as needed. Back to the emergency department for vomiting, fever, abdominal pain, blood in your stool or any other concerning signs or symptoms. Sepsis Event Note (ED) - Focused Exam Vital Signs: Vital Signs Temp Pulse Resp BP Pulse Ox 03/28/21 13:48 35.6 C L 82 16 161/83 H 93 L 03/28/21 13:38 35.6 C L 85 20 161/83 H 96
[2021-03-28] MEDS ORDERED: Sodium Phosphate,Monobasic/Sodium Phosphate,Dibasic Enema 133 ML Bottle RECTAL ONE (13:52)
[2021-03-28 15:46] VITALS: BP 139/80; PULSE 84
[2021-03-28] MEDS ORDERED: Polyethylene Glycol 3350 Powder 17 GM Packet PO ONE (16:03)
== END 2021-03-28 16:09 | disposition home or self-care (01) ==
LOC: FB.ED 13:31
DX: K56.41 Fecal impaction (principal); E78.00 Pure hypercholesterolemia, unspecified; I10 Essential (primary) hypertension; E11.42 Type 2 diabetes mellitus with diabetic polyneuropathy; E03.9 Hypothyroidism, unspecified; E66.9 Obesity, unspecified; Z68.30 Body mass index [BMI] 30.0-30.9, adult; Z79.84 Long term (current) use of oral hypoglycemic drugs; Z79.82 Long term (current) use of aspirin; Z79.899 Other long term (current) drug therapy; Z72.0 Tobacco use
CPT/HCPCS: 99284; A9270

== ENCOUNTER 2021-04-26 19:46 | Emergency (ER) | payer MEDICAID, MEDICARE ==
[2021-04-26 20:03] VITALS: BP 148/62; PULSE 81
--- NOTE | 2021-04-26 20:43 | EDM.PDOC ---
ED HPI GENERAL MEDICAL PROBLEM - General Chief Complaint: General Stated Complaint: POSS BROKEN RIB,FELL Time Seen by Provider: 04/26/21 20:05 Source of Information: Reports: Patient History Limitations: Reports: No Limitations - History of Present Illness INITIAL COMMENTS - FREE TEXT/NARRATIVE: Patient presented to the ED because of left rib pain. She tripped and fell on her left chest. She c/o left rib pain that is worse with movements. There is no dyspnea or pleuritic pain. 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 Left Trunk Pain Score (Numeric/FACES): 9 - Related Data Allergies Allergy/AdvReac Type Severity Reaction Status Date / Time hydrocodone Allergy Confusion Verified 03/27/21 21:21 Home Meds: Home Meds Omeprazole 20 mg PO DAILY 11/01/13 [History] metFORMIN HCl [Metformin HCl] 850 mg PO BID 11/01/13 [History] Aspirin [Low Dose Aspirin EC] 81 mg PO DAILY 04/26/15 [History] Gabapentin [Neurontin] 600 mg PO BEDTIME 04/26/15 [History] Levothyroxine 75 mcg DAILY 04/26/15 [History] Multivitamin [Daily Multiple Vitamin] 1 tab PO DAILY 04/26/15 [History] .Breo Ellipta 200mcg/25mcg 1 puff INH DAILY 04/20/19 [History] Albuterol [Ventolin HFA] 2 puff INH Q4HR PRN 04/20/19 [History] Mirtazapine 15 mg PO BEDTIME 12/07/19 [History] QUEtiapine [SEROquel] 300 mg PO BEDTIME 12/07/19 [History] glipiZIDE [Glucotrol] 10 mg PO DAILY 12/07/19 [History] lisinopriL [Lisinopril] 10 mg PO DAILY 12/07/19 [History] Insulin Isophane NPH, Human [NovoLIN N] 30 units DAILY 12/25/20 [History] Rosuvastatin [Crestor] 10 mg PO BEDTIME 12/25/20 [History] Semaglutide [Ozempic] 0.5 mg SQ FR 12/25/20 [History] Venlafaxine HCl [Venlafaxine ER] 150 mg DAILY 12/25/20 [History] Zolpidem Tartrate [Ambien] 5 mg PO BEDTIME 12/25/20 [History] hydroCHLOROthiazide [Hydrochlorothiazide] 12.5 mg PO DAILY 12/25/20 [History] traMADol [Ultram] 100 mg PO Q8H PRN #15 tab 04/26/21 [Rx] Past Medical History - Past Health History Medical/Surgical History: Denies Medical/Surgical History HEENT 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: Impaired Vision Other HEENT History: Wears glasses. 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 Endocrine/Metabolic 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: Diabetes, Type II, Hypothyroidism, Obesity/BMI 30+ Hematologic 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: Blood Transfusion(s) - Infectious Disease History Infectious Disease 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: Chicken Pox, Measles, Shingles - Past Surgical History HEENT Surgical 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: None Cardiovascular Surgical 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: None Respiratory Surgical 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: None GI Surgical 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: Appendectomy, Cholecystectomy, EGD Female Surgical 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: Section, D&C, Hysterectomy, Salpingo-Oophorectomy Other Female Surgeries/Procedures: CS x 2 Endocrine Surgical 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: None Neurological Surgical 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: None Musculoskeletal Surgical 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: None Social & Family History - Family History Family Medical History: No Pertinent Family History - Tobacco Use Tobacco Use Status *Q: Current Every Day Tobacco User Years of Tobacco use: 50 Packs/Tins Daily: 1 - Caffeine Use Caffeine Use: Reports: Coffee - Recreational Drug Use Recreational Drug Use: No - Living Situation & Occupation Occupation: Retired ED ROS GENERAL - Review of Systems Review Of Systems: See Below Constitutional: Reports: No Symptoms HEENT: Reports: No Symptoms Respiratory: Reports: No Symptoms Cardiovascular: Reports: No Symptoms Endocrine: Reports: No Symptoms GI/Abdominal: Reports: No Symptoms : Reports: No Symptoms Musculoskeletal: Reports: No Symptoms Skin: Reports: No Symptoms Neurological: Reports: No Symptoms Psychiatric: Reports: No Symptoms ED EXAM, GENERAL - Physical Exam Exam: See Below Exam Limited By: No Limitations General Appearance: Alert, No Apparent Distress Ears: Normal External Exam, Normal Canal Nose: Normal Inspection, Normal Mucosa, No Blood Throat/Mouth: Normal Inspection, Normal Lips, Normal Teeth, Normal Gums Head: Atraumatic, Normocephalic Neck: Normal Inspection, Supple, Non-Tender, Full Range of Motion Respiratory/Chest: No Respiratory Distress, Lungs Clear, Other (left rib tenderness) Cardiovascular: Normal Peripheral Pulses, Regular Rate, Rhythm, No Edema, No Gallop, No JVD, No Murmur GI/Abdominal: Normal Bowel Sounds, Soft, Non-Tender, No Organomegaly, No Distention, No Abnormal Bruit Back Exam: Normal Inspection, Full Range of Motion Extremities: Normal Inspection, Normal Range of Motion, Non-Tender Neurological: Alert, Oriented, CN II-XII Intact, Normal Cognition, Normal Gait, Normal Reflexes, No Motor/Sensory Deficits Course - Vital Signs Text/Narrative:: CXR and left rib-see result Tramadol 100 mg PO x1 Tylenol 1000 mg PO x1 Last Recorded V/S: Last Vital Signs Temp 35.6 C L 04/26/21 20:00 Pulse 81 04/26/21 20:00 Resp 18 04/26/21 20:00 BP 148/62 H 04/26/21 20:00 Pulse Ox 97 04/26/21 20:00 - Orders/Labs/Meds Orders: Active Orders 24 hr Category Date Time Status Ribs 2V w Chest Lt [CR] Stat Exams 04/26/21 20:06 Taken Meds: Medications Discontinued Medications Generic Name Dose Route Start Last Admin Trade Name Freq PRN Reason Stop Dose Admin Acetaminophen 1,000 mg 04/26/21 20:58 Acetaminophen 500 Mg Tab PO 04/26/21 20:59 NOW STA Tramadol HCl 100 mg 04/26/21 20:58 Tramadol 50 Mg Tab PO 04/26/21 20:59 NOW STA Departure - Departure Time of Disposition: 20:15 Disposition: Home, Self-Care 01 Condition: Good Clinical Impression: Contusion of rib on left side - Discharge Information Prescriptions: traMADol [Ultram] 100 mg PO Q8H PRN #15 tab PRN Reason: Pain Instructions: Rib Contusion Referrals: PCP,None [Primary Care Provider] - Forms: ED Department Discharge Additional Instructions: Prema read discharge instructions on rib contusion Apply ice or heat whichever you prefer Tramadol 100 mg with tylenol 1000 mg every 8 hours as needed for pain We will call you if there is any changes on the xray reading Sepsis Event Note (ED) - Evaluation Sepsis Screening Result: No Definite Risk - Focused Exam Vital Signs: Vital Signs Temp Pulse Resp BP Pulse Ox 04/26/21 20:00 35.6 C L 81 18 148/62 H 97 - My Orders Last 24 Hours: My Active Orders 04/26/21 20:06 Ribs 2V w Chest Lt [CR] Stat - Assessment/Plan Last 24 Hours: My Active Orders 04/26/21 20:06 Ribs 2V w Chest Lt [CR] Stat
[2021-04-26] MEDS ORDERED: traMADol 50 MG Tab PO STA (20:58)
[2021-04-26] MEDS ORDERED: Acetaminophen 500 MG Tab PO STA (20:58)
--- NOTE | 2021-04-27 11:06 | CR ---
LEFT RIBS WITH CHEST INDICATION: Fall, pain under left breast. [id number] smoker. FINDINGS: PA view of the chest with four additional views of the left ribs were obtained 04/26/21 and compared with chest x-ray from 04/19/19. Linear density at the lower lung field on the right is again noted, most likely fibrotic in nature. A definite active infiltrate, effusion, contusion or pneumothorax was not identified. However, there are slightly heavy markings at the lung bases due to a poor inspiration likely. The heart did not appear enlarged. The aorta is calcified in the arch area. There appears to be some mild deformity of a lower left rib - #10 laterally, which will be further evaluated with the four images of the ribs obtained. Four images of the ribs revealed probable old healed fracture at the left 10th rib laterally, which is overlain by a BB showing the site of injury. However, no displaced fracture site or other definite bony abnormality was identified. IMPRESSION: No acute process. No displaced rib fracture is identified. If symptoms persist - if occult fracture site is suspected clinically, reexamination in 10 to 14 days, or more advanced imaging such as CT of the chest, may be helpful for further evaluation. JONESD
== END 2021-04-26 21:29 | disposition home or self-care (01) ==
LOC: FB.ED 19:46
DX: S20.212A Contusion of left front wall of thorax, initial encounter (principal); E78.00 Pure hypercholesterolemia, unspecified; I10 Essential (primary) hypertension; J44.9 Chronic obstructive pulmonary disease, unspecified; M19.90 Unspecified osteoarthritis, unspecified site; E11.42 Type 2 diabetes mellitus with diabetic polyneuropathy; E03.9 Hypothyroidism, unspecified; E66.9 Obesity, unspecified; Z72.0 Tobacco use; Z88.5 Allergy status to narcotic agent; Z79.82 Long term (current) use of aspirin; Z79.4 Long term (current) use of insulin; Z79.899 Other long term (current) drug therapy; W01.0XXA Fall on same level from slipping, tripping and stumbling without subsequent striking against object, initial encounter
CPT/HCPCS: 71101; 99283; A9270

== ENCOUNTER 2022-06-06 18:27 | Emergency (ER) | payer MEDICARE ==
[2022-06-06] MEDS ORDERED: Sodium Chloride 0.9% 10 ML Syringe FLUSH PRN (18:32)
[2022-06-06] MEDS ORDERED: Sodium Chloride 0.9% 1,000 ML IV SCH (18:45)
[2022-06-06] MEDS: Sodium Chloride 0.9% 1,000 ML IV SCH ×2 (18:48→20:12)
[2022-06-06 19:00] LABS: ESTIMATED GFR 35 mL/min (>60)
[2022-06-06] MEDS ORDERED: Ketorolac 30 MG/ML SDV IVPUSH ONE (19:37)
[2022-06-06 22:47] VITALS: BP 121/92; PULSE 75
== END 2022-06-06 22:00 | disposition home or self-care (01) ==
LOC: FB.ED 18:27
DX: N17.9 Acute kidney failure, unspecified (principal); E78.00 Pure hypercholesterolemia, unspecified; I10 Essential (primary) hypertension; E11.9 Type 2 diabetes mellitus without complications; R29.6 Repeated falls; F17.210 Nicotine dependence, cigarettes, uncomplicated; E66.9 Obesity, unspecified; Z68.28 Body mass index [BMI] 28.0-28.9, adult; Z88.5 Allergy status to narcotic agent; Z79.899 Other long term (current) drug therapy; Z79.82 Long term (current) use of aspirin; Z79.84 Long term (current) use of oral hypoglycemic drugs
CPT/HCPCS: 36415; 72220; 73030; 73501; 80053; 82550; 83735; 85025; 96374; 99284; J1885; J3490; J7030

== ENCOUNTER 2022-11-12 13:35 | Emergency (ER) | payer MEDICARE ==
[2022-11-12] MEDS ORDERED: Sodium Chloride 0.9% 10 ML Syringe FLUSH PRN (14:23)
[2022-11-12] MEDS ORDERED: Morphine 2 MG/ML SYRINGE IVPUSH ONE (14:32)
[2022-11-12] MEDS ORDERED: Sodium Chloride 0.9% 1,000 ML IV SCH ×2 (14:45→16:45)
[2022-11-12 14:52] LABS: ESTIMATED GFR 35 mL/min (>60)
[2022-11-12] MEDS ORDERED: Magnesium Sulfate/Water 2 GM in Premix Bag 1 BAG IV ONE (15:26)
[2022-11-12] MEDS ORDERED: Magnesium Sulfate/Water 50 ML ONE (15:40)
[2022-11-12] MEDS ORDERED: traMADol 50 MG Tab PO STA (17:12)
[2022-11-12] MEDS ORDERED: Nicotine 21 MG/24 Hr Patch TRDERM ONE (17:55)
[2022-11-12 20:19] VITALS: BP 135/72; PULSE 88
== END 2022-11-12 21:20 | disposition home or self-care (01) ==
LOC: FB.ED 13:35
DX: S22.079A Unspecified fracture of T9-T10 vertebra, initial encounter for closed fracture (principal); S22.089A Unspecified fracture of T11-T12 vertebra, initial encounter for closed fracture; S32.019A Unspecified fracture of first lumbar vertebra, initial encounter for closed fracture; J44.9 Chronic obstructive pulmonary disease, unspecified; E78.00 Pure hypercholesterolemia, unspecified; I10 Essential (primary) hypertension; E11.40 Type 2 diabetes mellitus with diabetic neuropathy, unspecified; E03.9 Hypothyroidism, unspecified; F17.210 Nicotine dependence, cigarettes, uncomplicated; E66.9 Obesity, unspecified; Z68.25 Body mass index [BMI] 25.0-25.9, adult; Z88.5 Allergy status to narcotic agent; Z79.899 Other long term (current) drug therapy; Z79.84 Long term (current) use of oral hypoglycemic drugs; Z79.82 Long term (current) use of aspirin; Z90.49 Acquired absence of other specified parts of digestive tract; Z90.710 Acquired absence of both cervix and uterus; W19.XXXA Unspecified fall, initial encounter
CPT/HCPCS: 36415; 70450; 72128; 72131; 72192; 80053; 81001; 82550; 82947; 83735; 84484; 85025; 93005; 96361; 96365; 96366; 96375; 99285; A9270; J2270; J3475; J7030; 93010; 99283

== ENCOUNTER 2022-11-14 08:33 | Inpatient (IN) | payer MEDICARE ==
[2022-11-14] MEDS ORDERED: traMADol 50 MG Tab PO ONE (08:54)
[2022-11-14] MEDS ORDERED: Ketorolac 30 MG/ML SDV IM ONE (08:54)
[2022-11-14 15:04] LABS: ESTIMATED GFR 31 mL/min (>60)
[2022-11-14] MEDS ORDERED: Sodium Chloride 0.9% 1,000 ML IV SCH ×2 (16:00→18:00)
[2022-11-14] MEDS ORDERED: traMADol 50 MG Tab PO PRN (16:22)
[2022-11-14] MEDS ORDERED: Ondansetron 4 MG Tab.DIS PO PRN (16:22)
[2022-11-14] MEDS ORDERED: QUEtiapine 25 MG Tab PO PRN (16:30)
[2022-11-14] MEDS ORDERED: 50% Dextrose in Water 50 ML Syringe IVPUSH PRN (16:37)
[2022-11-14] MEDS ORDERED: Glucagon,Human Recombinant 1 MG Vial IM PRN (16:37)
[2022-11-14] MEDS: Enoxaparin 30 MG/0.3 ML Syringe SUBCUT SCH (17:24)
[2022-11-14] MEDS: Ibuprofen 200 MG Tab PO SCH ×2 (17:25→21:32)
[2022-11-14] MEDS: Acetaminophen 325 MG Tab PO SCH ×2 (17:25→21:33)
[2022-11-14] MEDS: Sodium Chloride 0.9% 1,000 ML IV SCH (17:29)
[2022-11-14] MEDS: Insulin Lispro 100 Unit/ML 3 ML KwikPen SUBCUT SCH (17:30)
[2022-11-14] MEDS ORDERED: Nicotine 21 MG/24 Hr Patch TRDERM ONE (19:45)
[2022-11-14] MEDS: Gabapentin 300 MG Cap PO SCH (20:53)
[2022-11-14] MEDS: Venlafaxine 150 MG Cap.ER PO SCH (20:53)
[2022-11-14] MEDS: Mirtazapine 15 MG Tab PO SCH (20:53)
[2022-11-14] MEDS: QUEtiapine 100 MG Tab PO SCH (20:53)
[2022-11-14] MEDS: Magnesium Chloride 64 MG Tab.ER PO SCH (20:54)
[2022-11-14] MEDS: Formoterol/Mometasone 200-5 MCG 8.8 GM Inhaler IH SCH (20:54)
[2022-11-15] MEDS: Sodium Chloride 0.9% 1,000 ML IV SCH ×3 (02:31→22:46)
[2022-11-15] MEDS: Acetaminophen 325 MG Tab PO SCH ×4 (05:01→21:30)
[2022-11-15] MEDS: Ibuprofen 200 MG Tab PO SCH ×4 (05:01→21:30)
[2022-11-15] MEDS: Levothyroxine 75 MCG Tab PO SCH (06:41)
[2022-11-15] MEDS: Pantoprazole 40 MG Tab.CR PO SCH (06:41)
[2022-11-15 06:53] LABS: ESTIMATED GFR 35 mL/min (>60)
[2022-11-15] MEDS: Insulin Lispro 100 Unit/ML 3 ML KwikPen SUBCUT SCH ×3 (07:55→17:57)
[2022-11-15] MEDS: Venlafaxine 75 MG Cap.ER PO SCH (08:25)
[2022-11-15] MEDS: glipiZIDE 5 MG Tab PO SCH (08:26)
[2022-11-15] MEDS: Cyanocobalamin (Vitamin B12) 1,000 MCG Tab PO SCH (08:26)
[2022-11-15] MEDS: Magnesium Chloride 64 MG Tab.ER PO SCH ×2 (08:26→20:58)
[2022-11-15] MEDS: Formoterol/Mometasone 200-5 MCG 8.8 GM Inhaler IH SCH (08:26)
[2022-11-15] MEDS: NICOTINE PATCH TRDERM SCH (08:27)
[2022-11-15] MEDS: Nicotine 21 MG/24 Hr Patch TRDERM SCH (08:29)
[2022-11-15] MEDS: oxyCODONE 5 MG Tab PO PRN ×2 (09:58→14:53)
[2022-11-15] MEDS: buPROPion 150 MG Tab.ER PO SCH (11:34)
[2022-11-15] MEDS: Albuterol 8 GM Inhaler INH PRN (11:34)
[2022-11-15] MEDS ORDERED: Insulin Lispro 100 Unit/ML 3 ML KwikPen SUBCUT ONE (11:40)
[2022-11-15] MEDS: Enoxaparin 30 MG/0.3 ML Syringe SUBCUT SCH (16:45)
[2022-11-15] MEDS ORDERED: SEMAGLUTIDE SUBCUT SCH (18:00)
[2022-11-15] MEDS: Gabapentin 300 MG Cap PO SCH (20:58)
[2022-11-15] MEDS: QUEtiapine 100 MG Tab PO SCH (20:59)
[2022-11-15] MEDS: Mirtazapine 15 MG Tab PO SCH (20:59)
[2022-11-15] MEDS: Venlafaxine 150 MG Cap.ER PO SCH (21:01)
[2022-11-15] MEDS: Aluminum Hydroxide/Magnesium Hydroxide Susp 30 ML Cup PO PRN (21:40)
[2022-11-16] MEDS: Ibuprofen 200 MG Tab PO SCH ×4 (05:16→21:58)
[2022-11-16] MEDS: Acetaminophen 325 MG Tab PO SCH ×4 (05:17→21:59)
[2022-11-16] MEDS: Albuterol 8 GM Inhaler INH PRN (06:03)
[2022-11-16] MEDS: Pantoprazole 40 MG Tab.CR PO SCH (06:58)
[2022-11-16] MEDS: Levothyroxine 75 MCG Tab PO SCH (06:59)
[2022-11-16 07:03] LABS: ESTIMATED GFR 50 mL/min (>60)
[2022-11-16] MEDS: glipiZIDE 5 MG Tab PO SCH (08:14)
[2022-11-16] MEDS: Insulin Lispro 100 Unit/ML 3 ML KwikPen SUBCUT SCH ×4 (08:15→17:15)
[2022-11-16] MEDS: Magnesium Chloride 64 MG Tab.ER PO SCH ×2 (08:16→20:55)
[2022-11-16] MEDS: Venlafaxine 75 MG Cap.ER PO SCH (08:16)
[2022-11-16] MEDS: Nicotine 21 MG/24 Hr Patch TRDERM SCH (08:16)
[2022-11-16] MEDS: buPROPion 150 MG Tab.ER PO SCH (08:17)
[2022-11-16] MEDS: NICOTINE PATCH TRDERM SCH (08:17)
[2022-11-16] MEDS: Cyanocobalamin (Vitamin B12) 1,000 MCG Tab PO SCH (08:18)
[2022-11-16] MEDS: Doxycycline 100 MG Tab PO SCH ×2 (10:31→20:55)
[2022-11-16] MEDS: predniSONE 20 MG Tab PO SCH (10:31)
[2022-11-16] MEDS ORDERED: Budesonide 0.5 MG/2 ML Neb Susp ONE (10:41)
[2022-11-16] MEDS: Budesonide 0.25 MG/2 ML Neb Susp NEB SCH ×2 (11:00→20:55)
[2022-11-16] MEDS: Salmeterol Xinafoate 50 Mcg 28 Puff/Diskus INH SCH ×2 (11:19→21:04)
[2022-11-16] MEDS: BREO ELLIPTA INH SCH ×2 (11:19→17:00)
[2022-11-16] MEDS: Enoxaparin 30 MG/0.3 ML Syringe SUBCUT SCH ×2 (16:13→16:40)
[2022-11-16] MEDS: Mirtazapine 15 MG Tab PO SCH (20:54)
[2022-11-16] MEDS: QUEtiapine 100 MG Tab PO SCH (20:55)
[2022-11-16] MEDS: Gabapentin 300 MG Cap PO SCH (20:55)
[2022-11-16] MEDS: Venlafaxine 150 MG Cap.ER PO SCH (20:56)
[2022-11-16] MEDS ORDERED: Ondansetron 4 MG Tab.DIS PO PRN (21:54)
[2022-11-17] MEDS: Acetaminophen 325 MG Tab PO SCH ×4 (05:07→21:31)
[2022-11-17] MEDS: Ibuprofen 200 MG Tab PO SCH ×4 (05:07→21:32)
[2022-11-17] MEDS: Budesonide 0.25 MG/2 ML Neb Susp NEB SCH ×2 (06:34→21:05)
[2022-11-17] MEDS: Levothyroxine 75 MCG Tab PO SCH (06:34)
[2022-11-17] MEDS: Pantoprazole 40 MG Tab.CR PO SCH (06:34)
[2022-11-17 06:57] LABS: ESTIMATED GFR 70 mL/min (>60)
[2022-11-17] MEDS: Insulin Lispro 100 Unit/ML 3 ML KwikPen SUBCUT SCH ×3 (08:36→17:36)
[2022-11-17] MEDS: Venlafaxine 75 MG Cap.ER PO SCH (08:38)
[2022-11-17] MEDS: buPROPion 150 MG Tab.ER PO SCH (08:38)
[2022-11-17] MEDS: Magnesium Chloride 64 MG Tab.ER PO SCH ×2 (08:39→21:23)
[2022-11-17] MEDS: BREO ELLIPTA INH SCH (08:40)
[2022-11-17] MEDS: Nicotine 21 MG/24 Hr Patch TRDERM SCH (08:41)
[2022-11-17] MEDS: NICOTINE PATCH TRDERM SCH (08:41)
[2022-11-17] MEDS: Salmeterol Xinafoate 50 Mcg 28 Puff/Diskus INH SCH (08:42)
[2022-11-17] MEDS: Cyanocobalamin (Vitamin B12) 1,000 MCG Tab PO SCH (08:43)
[2022-11-17] MEDS: glipiZIDE 5 MG Tab PO SCH (08:43)
[2022-11-17] MEDS: Sodium Chloride 0.9% 10 ML Syringe FLUSH PRN (08:46)
[2022-11-17] MEDS: predniSONE 20 MG Tab PO SCH (08:54)
[2022-11-17] MEDS: Doxycycline 100 MG Tab PO SCH ×2 (08:54→21:23)
[2022-11-17] MEDS ORDERED: Magnesium Hydroxide 400 MG/5 ML Susp 30 ML Cup PO PRN (10:20)
[2022-11-17] MEDS: Aluminum Hydroxide/Magnesium Hydroxide Susp 30 ML Cup PO PRN (10:30)
[2022-11-17 12:58] LABS: CORONAVIRUS COVID-19 NAA NEGATIVE (NEGATIVE)
[2022-11-17] MEDS: Arformoterol 15 MCG/2 ML Neb Soln NEB SCH ×2 (14:12→21:25)
[2022-11-17] MEDS: Bisacodyl 5 MG Tab PO PRN (14:13)
[2022-11-17] MEDS: Enoxaparin 40 MG/0.4 ML Syringe SUBCUT SCH (16:36)
[2022-11-17] MEDS: Bisacodyl 10 MG Supp RECTAL PRN (19:15)
[2022-11-17] MEDS: QUEtiapine 100 MG Tab PO SCH (21:22)
[2022-11-17] MEDS: Mirtazapine 15 MG Tab PO SCH (21:23)
[2022-11-17] MEDS: Gabapentin 300 MG Cap PO SCH (21:23)
[2022-11-17] MEDS: Venlafaxine 150 MG Cap.ER PO SCH (21:23)
[2022-11-18] MEDS: Ibuprofen 200 MG Tab PO SCH ×4 (05:00→22:36)
[2022-11-18] MEDS: Acetaminophen 325 MG Tab PO SCH ×4 (05:00→22:36)
[2022-11-18] MEDS: Levothyroxine 75 MCG Tab PO SCH (06:48)
[2022-11-18] MEDS: Pantoprazole 40 MG Tab.CR PO SCH (06:48)
[2022-11-18] MEDS: Budesonide 0.25 MG/2 ML Neb Susp NEB SCH ×2 (06:56→20:44)
[2022-11-18] MEDS: Arformoterol 15 MCG/2 ML Neb Soln NEB SCH ×2 (06:56→20:44)
[2022-11-18 06:59] LABS: ESTIMATED GFR 70 mL/min (>60)
[2022-11-18] MEDS: predniSONE 20 MG Tab PO SCH (08:33)
[2022-11-18] MEDS: glipiZIDE 5 MG Tab PO SCH (08:33)
[2022-11-18] MEDS: Venlafaxine 75 MG Cap.ER PO SCH (08:33)
[2022-11-18] MEDS: Nicotine 21 MG/24 Hr Patch TRDERM SCH (08:34)
[2022-11-18] MEDS: buPROPion 150 MG Tab.ER PO SCH (08:35)
[2022-11-18] MEDS: Magnesium Chloride 64 MG Tab.ER PO SCH ×2 (08:35→20:26)
[2022-11-18] MEDS: Cyanocobalamin (Vitamin B12) 1,000 MCG Tab PO SCH (08:35)
[2022-11-18] MEDS: Doxycycline 100 MG Tab PO SCH ×2 (08:35→20:30)
[2022-11-18] MEDS: NICOTINE PATCH TRDERM SCH (08:36)
[2022-11-18] MEDS: Insulin Lispro 100 Unit/ML 3 ML KwikPen SUBCUT SCH ×3 (08:36→18:06)
[2022-11-18] MEDS: Sodium Chloride 0.9% 10 ML Syringe FLUSH PRN (08:39)
[2022-11-18] MEDS ORDERED: Lidocaine 4% 1 each Patch TOP SCH (11:30)
[2022-11-18] MEDS: Polyethylene Glycol 3350 Powder 17 GM Packet PO SCH (11:35)
[2022-11-18] MEDS: Lidocaine 4% 1 each Patch TOP SCH (11:35)
[2022-11-18] MEDS: Bisacodyl 5 MG Tab PO PRN (15:32)
[2022-11-18] MEDS: Enoxaparin 40 MG/0.4 ML Syringe SUBCUT SCH (16:56)
[2022-11-18] MEDS: Gabapentin 300 MG Cap PO SCH (20:23)
[2022-11-18] MEDS: Bisacodyl 10 MG Supp RECTAL PRN (20:23)
[2022-11-18] MEDS: Albuterol 8 GM Inhaler INH PRN (20:24)
[2022-11-18] MEDS: QUEtiapine 100 MG Tab PO SCH (20:26)
[2022-11-18] MEDS: Venlafaxine 150 MG Cap.ER PO SCH (20:27)
[2022-11-18] MEDS: Mirtazapine 15 MG Tab PO SCH (20:28)
[2022-11-18] MEDS ORDERED: LIDOCAINE PATCH TRDERM SCH (21:00)
[2022-11-18] MEDS: oxyCODONE 5 MG Tab PO PRN (22:40)
[2022-11-19] MEDS: Acetaminophen 325 MG Tab PO SCH ×2 (03:56→09:31)
[2022-11-19] MEDS: Ibuprofen 200 MG Tab PO SCH ×2 (03:56→09:31)
[2022-11-19] MEDS: Budesonide 0.25 MG/2 ML Neb Susp NEB SCH (06:31)
[2022-11-19] MEDS: Arformoterol 15 MCG/2 ML Neb Soln NEB SCH (06:31)
[2022-11-19] MEDS: Levothyroxine 75 MCG Tab PO SCH (06:31)
[2022-11-19] MEDS: Pantoprazole 40 MG Tab.CR PO SCH (06:31)
[2022-11-19] MEDS: Insulin Lispro 100 Unit/ML 3 ML KwikPen SUBCUT SCH ×2 (08:48→11:46)
[2022-11-19] MEDS: glipiZIDE 5 MG Tab PO SCH (09:21)
[2022-11-19] MEDS: predniSONE 20 MG Tab PO SCH (09:21)
[2022-11-19] MEDS: Venlafaxine 75 MG Cap.ER PO SCH (09:22)
[2022-11-19] MEDS: Lidocaine 4% 1 each Patch TOP SCH (09:22)
[2022-11-19] MEDS: Nicotine 21 MG/24 Hr Patch TRDERM SCH (09:22)
[2022-11-19] MEDS: Polyethylene Glycol 3350 Powder 17 GM Packet PO SCH (09:23)
[2022-11-19] MEDS: Doxycycline 100 MG Tab PO SCH (09:23)
[2022-11-19] MEDS: NICOTINE PATCH TRDERM SCH (09:23)
[2022-11-19] MEDS: Magnesium Chloride 64 MG Tab.ER PO SCH (09:23)
[2022-11-19] MEDS: buPROPion 150 MG Tab.ER PO SCH (09:24)
[2022-11-19] MEDS: Cyanocobalamin (Vitamin B12) 1,000 MCG Tab PO SCH (09:24)
[2022-11-19 14:49] VITALS: BP 130/64; PULSE 78
== END 2022-11-19 12:45 | disposition home health service (06) | DRG 552 ==
LOC: FB.ED 08:33 → FB.MS 16:17
PROVIDERS: ADMIT Family Medicine; ATTEND Family Medicine
DX: S32.010A Wedge compression fracture of first lumbar vertebra, initial encounter for closed fracture (principal); N17.9 Acute kidney failure, unspecified; F33.9 Major depressive disorder, recurrent, unspecified; J44.1 Chronic obstructive pulmonary disease with (acute) exacerbation; M62.82 Rhabdomyolysis; J98.11 Atelectasis; R29.6 Repeated falls; E86.0 Dehydration; Z20.822 Contact with and (suspected) exposure to COVID-19; F41.1 Generalized anxiety disorder; E03.9 Hypothyroidism, unspecified; D64.9 Anemia, unspecified; E78.00 Pure hypercholesterolemia, unspecified; H54.7 Unspecified visual loss; K59.09 Other constipation; I10 Essential (primary) hypertension; E11.42 Type 2 diabetes mellitus with diabetic polyneuropathy; F41.9 Anxiety disorder, unspecified; Z90.49 Acquired absence of other specified parts of digestive tract; Z88.5 Allergy status to narcotic agent; Z79.84 Long term (current) use of oral hypoglycemic drugs; Z79.890 Hormone replacement therapy; Z79.4 Long term (current) use of insulin; Z90.710 Acquired absence of both cervix and uterus; W01.0XXA Fall on same level from slipping, tripping and stumbling without subsequent striking against object, initial encounter
CPT/HCPCS: 0241U; 36415; 71046; 80048; 80307; 81001; 82550; 82947; 85025; 94150; 94640; 97161; 97165; 97535; 72100; 73521; 80053; 96360; 96372; 99222; 99232; 99238; 99285; 99285-25; A9270-GY; J1650; J1815; J1885; J3490; J7030; J7512; J7605; Q0162

== ENCOUNTER 2022-11-26 14:44 | Observation (INO) | payer MEDICARE ==
[2022-11-26] MEDS ORDERED: Sodium Chloride 0.9% 10 ML Syringe FLUSH PRN (15:35)
[2022-11-26 16:07] LABS: BASOPHILS PERCENT AUTO 0.3 % (0.2-1.5); EOSINOPHILS ABSOLUTE AUTO 0.1 x10-3/uL (0.0-0.8); EOSINOPHILS PERCENT AUTO 0.6 % (0.6-8.1); HEMATOCRIT 33.2 % (34.2-48.2); HEMOGLOBIN 10.8 g/dL (11.4-15.5); LYMPHOCYTES ABSOLUTE AUTO 1.8 x10-3/uL (1.0-4.4); LYMPHOCYTES PERCENT AUTO 12.4 % (18.4-52.1); MEAN CORPUSCULAR HEMOGLOBIN 29.3 pg (23.9-33.9); MEAN CORPUSCULAR HGB CONC 32.4 g/dL (31.9-34.8); MEAN CORPUSCULAR VOLUME 90.4 fL (76.7-100.5); MEAN PLATELET VOLUME 7.1 fL (7.1-12.4); MONOCYTES ABSOLUTE AUTO 0.7 x10-3/uL (0.3-1.0); NEUTROPHILS ABSOLUTE AUTO 11.7 x10-3/uL (1.5-6.3); NEUTROPHILS PERCENT AUTO 81.7 % (30.8-76.2); PLATELET COUNT,PLT 542 x10(3)uL (151-488); RED BLOOD CELL COUNT 3.67 x10(6)uL (3.60-5.20); RED CELL DISTRIBUTION WIDTH 15.1 % (12.3-16.5); WHITE BLOOD CELL COUNT,WBC 14.3 x10-3/uL (3.0-10.3)
[2022-11-26 16:16] LABS: ALANINE AMINOTRANSFERASE,ALT 38 U/L (12-36); ALBUMIN 3.5 g/dL (3.2-4.6); ALKALINE PHOSPHATASE 135 IU/L (56-112); ASPARTATE AMNIOTRANSFERASE,AST 26 IU/L (5-25); BILIRUBIN TOTAL 0.3 mg/dL (0.1-1.3); BLOOD UREA NITROGEN,BUN 44 mg/dL (7-18); CALCIUM 9.3 mg/dL (8.6-10.2); CARBON DIOXIDE,CO2 22 mmol/L (21-32); CHLORIDE,CL 102 mmol/L (100-110); ESTIMATED GFR 25 mL/min (>60); GLUCOSE RANDOM 172 mg/dL (80-116); POTASSIUM,K 4.5 mmol/L (3.5-5.3); PROTEIN TOTAL,TP 7.1 g/dL (6.0-8.0); SODIUM,NA 139 mmol/L (135-145)
[2022-11-26 16:21] LABS: TROPONIN I 9.7 pg/mL (4.0-60.3)
[2022-11-26 16:24] LABS: C-REACTIVE PROTEIN < 0.2 mg/dL (0.5-0.9)
[2022-11-26 16:25] LABS: CREATININE 2.1 mg/dL (0.55-1.02); MAGNESIUM 0.9 mg/dL (1.8-2.5)
[2022-11-26 16:48] LABS: APPEARANCE,URINE SLIGHTLY CLOUDY (CLEAR); BACTERIA,URINE MODERATE (NS); BILIRUBIN,URINE NEGATIVE (NEGATIVE); COLOR,URINE YELLOW (YELLOW); GLUCOSE,URINE NORMAL (NORMAL); KETONES,URINE NEGATIVE (NEGATIVE); LEUKOCYTE ESTERASE,URINE LARGE (NEGATIVE); NITRITE,URINE NEGATIVE (NEGATIVE); OCCULT BLOOD,URINE NEGATIVE (NEGATIVE); PROTEIN,URINE NEGATIVE (NEGATIVE); RBC,URINE 0-5 (0-5); SQUAMOUS EPITHELIAL CELLS,UR FEW (NS,R,O); UROBILINOGEN,URINE NORMAL (NEGATIVE); WBC,URINE 50-75 (0-5)
[2022-11-26] MEDS ORDERED: Sodium Chloride 0.9% 1,000 ML IV ONE (17:22)
[2022-11-26] MEDS ORDERED: Ondansetron 4 MG/2 ML SDV IV PRN (17:45)
[2022-11-26] MEDS ORDERED: 50% Dextrose in Water 50 ML Syringe IVPUSH PRN (17:52)
[2022-11-26] MEDS ORDERED: Glucagon,Human Recombinant 1 MG Vial IM PRN (17:52)
[2022-11-26] MEDS: Nicotine 7 MG/24 Hr Patch TRDERM SCH (18:24)
[2022-11-26] MEDS: Magnesium Sulfate/Water 2 GM in Premix Bag 1 BAG IV SCH ×2 (18:25→22:25)
[2022-11-26] MEDS: Pantoprazole 40 MG Vial IVPUSH SCH (18:29)
[2022-11-26] MEDS: cefTRIAXone 1 GM Vial IVPUSH SCH (18:35)
[2022-11-26] MEDS ORDERED: Insulin Lispro 100 Unit/ML 3 ML KwikPen SUBCUT ONE (20:23)
[2022-11-26] MEDS: Insulin Lispro 100 Unit/ML 3 ML KwikPen SUBCUT SCH (20:26)
[2022-11-26] MEDS ORDERED: Insulin Regular, Human 100 Units/ML 3 ML Vial SUBCUT SCH (21:00)
[2022-11-26] MEDS: Sodium Chloride 0.9% 1,000 ML IV SCH (21:34)
[2022-11-27] MEDS: Acetaminophen 325 MG Tab PO PRN ×2 (03:27→17:11)
[2022-11-27] MEDS: Sodium Chloride 0.9% 1,000 ML IV SCH ×3 (05:28→22:42)
[2022-11-27] MEDS: cefTRIAXone 1 GM Vial IVPUSH SCH ×2 (05:33→17:53)
[2022-11-27] MEDS: Pantoprazole 40 MG Vial IVPUSH SCH (05:33)
[2022-11-27 06:31] LABS: BASOPHILS PERCENT AUTO 0.2 % (0.2-1.5); EOSINOPHILS ABSOLUTE AUTO 0.1 x10-3/uL (0.0-0.8); EOSINOPHILS PERCENT AUTO 0.8 % (0.6-8.1); HEMATOCRIT 27.3 % (34.2-48.2); HEMOGLOBIN 9.1 g/dL (11.4-15.5); LYMPHOCYTES ABSOLUTE AUTO 2.2 x10-3/uL (1.0-4.4); LYMPHOCYTES PERCENT AUTO 20.9 % (18.4-52.1); MEAN CORPUSCULAR HEMOGLOBIN 30.2 pg (23.9-33.9); MEAN CORPUSCULAR HGB CONC 33.3 g/dL (31.9-34.8); MEAN CORPUSCULAR VOLUME 90.5 fL (76.7-100.5); MEAN PLATELET VOLUME 7.2 fL (7.1-12.4); MONOCYTES ABSOLUTE AUTO 0.6 x10-3/uL (0.3-1.0); MONOCYTES PERCENT AUTO 5.7 % (4.4-15.7); NEUTROPHILS ABSOLUTE AUTO 7.7 x10-3/uL (1.5-6.3); NEUTROPHILS PERCENT AUTO 72.4 % (30.8-76.2); PLATELET COUNT,PLT 439 x10(3)uL (151-488); RED BLOOD CELL COUNT 3.01 x10(6)uL (3.60-5.20); RED CELL DISTRIBUTION WIDTH 15.1 % (12.3-16.5); WHITE BLOOD CELL COUNT,WBC 10.7 x10-3/uL (3.0-10.3)
[2022-11-27 06:34] LABS: BLOOD UREA NITROGEN,BUN 30 mg/dL (7-18); CALCIUM 7.9 mg/dL (8.6-10.2); CARBON DIOXIDE,CO2 22 mmol/L (21-32); CHLORIDE,CL 106 mmol/L (100-110); CREATININE 1.5 mg/dL (0.55-1.02); EST CRCL DRUG DOSING (CG) 28.78 mL/min; ESTIMATED GFR 38 mL/min (>60); GLUCOSE RANDOM 148 mg/dL (80-116); MAGNESIUM 1.8 mg/dL (1.8-2.5); POTASSIUM,K 3.6 mmol/L (3.5-5.3); SODIUM,NA 140 mmol/L (135-145)
[2022-11-27] MEDS: Insulin Lispro 100 Unit/ML 3 ML KwikPen SUBCUT SCH ×4 (09:37→21:40)
[2022-11-27] MEDS: Nicotine 7 MG/24 Hr Patch TRDERM SCH (10:20)
[2022-11-27] MEDS ORDERED: Non-Formulary Medication 1 Each (Ondansetron [Zofran Odt] 4 MG Tab.Dis) PO PRN (11:06)
[2022-11-27] MEDS ORDERED: Albuterol 8 GM Inhaler *PTOM INH PRN (11:14)
[2022-11-27] MEDS ORDERED: Ibuprofen 400 MG Tab PO PRN (11:16)
[2022-11-27] MEDS ORDERED: QUEtiapine 25 MG Tab PO PRN (11:19)
[2022-11-27] MEDS ORDERED: Polyethylene Glycol 3350 Powder 17 GM Packet PO PRN (11:19)
[2022-11-27] MEDS: Rosuvastatin 10 MG Tab *PTOM PO SCH (12:06)
[2022-11-27] MEDS: Lidocaine 4% 1 each Patch TOP SCH (12:06)
[2022-11-27] MEDS: Formoterol/Mometasone 200-5 MCG 8.8 GM Inhaler IH SCH ×2 (12:07→21:40)
[2022-11-27] MEDS: VENLAFAXINE 75 MG PO SCH (12:08)
[2022-11-27] MEDS: Venlafaxine 150 MG Cap.ER *PTOM PO SCH (12:08)
[2022-11-27] MEDS: GLIPIZIDE 5 MG PO SCH (12:09)
[2022-11-27] MEDS: Hydrochlorothiazide 12.5 MG Cap *PTOM PO SCH (12:10)
[2022-11-27] MEDS: Levothyroxine 75 MCG Tab *PTOM PO SCH (12:20)
[2022-11-27] MEDS ORDERED: QUETIAPINE 300 MG PO SCH (21:00)
[2022-11-27] MEDS ORDERED: MIRTAZAPINE 45 MG PO SCH (21:00)
[2022-11-27] MEDS ORDERED: Gabapentin 300 MG Cap *PTOM PO SCH (21:00)
[2022-11-28] MEDS: Levothyroxine 75 MCG Tab *PTOM PO SCH (05:14)
[2022-11-28] MEDS: cefTRIAXone 1 GM Vial IVPUSH SCH (05:15)
[2022-11-28 06:32] LABS: BASOPHILS PERCENT AUTO 0.4 % (0.2-1.5); EOSINOPHILS ABSOLUTE AUTO 0.1 x10-3/uL (0.0-0.8); HEMATOCRIT 26.3 % (34.2-48.2); HEMOGLOBIN 8.7 g/dL (11.4-15.5); LYMPHOCYTES ABSOLUTE AUTO 2.4 x10-3/uL (1.0-4.4); MEAN CORPUSCULAR HEMOGLOBIN 29.7 pg (23.9-33.9); MEAN CORPUSCULAR HGB CONC 32.9 g/dL (31.9-34.8); MEAN CORPUSCULAR VOLUME 90.3 fL (76.7-100.5); MEAN PLATELET VOLUME 7.2 fL (7.1-12.4); MONOCYTES ABSOLUTE AUTO 0.6 x10-3/uL (0.3-1.0); NEUTROPHILS ABSOLUTE AUTO 4.9 x10-3/uL (1.5-6.3); NEUTROPHILS PERCENT AUTO 61.6 % (30.8-76.2); PLATELET COUNT,PLT 383 x10(3)uL (151-488); RED BLOOD CELL COUNT 2.91 x10(6)uL (3.60-5.20); RED CELL DISTRIBUTION WIDTH 14.7 % (12.3-16.5); WHITE BLOOD CELL COUNT,WBC 7.9 x10-3/uL (3.0-10.3)
[2022-11-28 06:43] LABS: BLOOD UREA NITROGEN,BUN 16 mg/dL (7-18); BUN/CREATININE RATIO 14.5 (9-20); CALCIUM 8.3 mg/dL (8.6-10.2); CARBON DIOXIDE,CO2 25 mmol/L (21-32); CHLORIDE,CL 108 mmol/L (100-110); CREATININE 1.1 mg/dL (0.55-1.02); EST CRCL DRUG DOSING (CG) 39.25 mL/min; ESTIMATED GFR 55 mL/min (>60); GLUCOSE RANDOM 92 mg/dL (80-116); MAGNESIUM 1.3 mg/dL (1.8-2.5); POTASSIUM,K 3.5 mmol/L (3.5-5.3); SODIUM,NA 143 mmol/L (135-145)
[2022-11-28] MEDS: Insulin Lispro 100 Unit/ML 3 ML KwikPen SUBCUT SCH (08:14)
[2022-11-28] MEDS: GLIPIZIDE 5 MG PO SCH (08:17)
[2022-11-28] MEDS: Formoterol/Mometasone 200-5 MCG 8.8 GM Inhaler IH SCH (08:19)
[2022-11-28] MEDS: Rosuvastatin 10 MG Tab *PTOM PO SCH (08:19)
[2022-11-28] MEDS: Venlafaxine 150 MG Cap.ER *PTOM PO SCH (08:20)
[2022-11-28] MEDS: VENLAFAXINE 75 MG PO SCH (08:20)
[2022-11-28] MEDS: Hydrochlorothiazide 12.5 MG Cap *PTOM PO SCH (08:20)
[2022-11-28] MEDS: Lidocaine 4% 1 each Patch TOP SCH (08:24)
[2022-11-28] MEDS: Nicotine 7 MG/24 Hr Patch TRDERM SCH (08:25)
[2022-11-28 08:57] VITALS: BP 145/65; PULSE 96
[2022-11-28] MEDS ORDERED: (Omeprazole [Omeprazole] 20 MG) *PTOM PO SCH (09:00)
[2022-11-29] MEDS ORDERED: Non-Formulary Medication 1 Each (Semaglutide [Ozempic] 1 MG/0.75 ML Pen.Injctr) SQ SCH (11:06)
== END 2022-11-28 10:15 | disposition home health service (06) ==
LOC: FB.ED 14:44 → FB.MS 17:22
PROVIDERS: ADMIT Student in an Organized Health Care Education/Training Program; ATTEND Family Medicine
DX: N39.0 Urinary tract infection, site not specified (principal); N17.9 Acute kidney failure, unspecified; Z51.5 Encounter for palliative care; E86.0 Dehydration; R29.6 Repeated falls; E83.42 Hypomagnesemia; S32.010S Wedge compression fracture of first lumbar vertebra, sequela; J41.0 Simple chronic bronchitis; D64.9 Anemia, unspecified; I10 Essential (primary) hypertension; E78.00 Pure hypercholesterolemia, unspecified; M19.90 Unspecified osteoarthritis, unspecified site; F41.9 Anxiety disorder, unspecified; F32.A Depression, unspecified; E03.9 Hypothyroidism, unspecified; E11.42 Type 2 diabetes mellitus with diabetic polyneuropathy; F17.210 Nicotine dependence, cigarettes, uncomplicated; E66.9 Obesity, unspecified; G43.909 Migraine, unspecified, not intractable, without status migrainosus; G47.00 Insomnia, unspecified; Z98.890 Other specified postprocedural states; Z90.49 Acquired absence of other specified parts of digestive tract; Z79.899 Other long term (current) drug therapy; Z79.84 Long term (current) use of oral hypoglycemic drugs; Z79.890 Hormone replacement therapy
CPT/HCPCS: 36415; 70450; 71045; 72125; 80048; 80053; 81001; 82947; 83605; 83735; 84484; 85025; 86140; 87040; 87086; 93005; 93010; 96361; 96365; 96366; 96375; 96376; 99222; 99238; 99284; 99285; A9270-GY; C9113; G0378; J0696; J1815; J1815-GY; J3475; J3490; J7030

== ENCOUNTER 2022-12-13 16:11 | Inpatient (IN) | payer MEDICARE ==
[2022-12-13] MEDS ORDERED: Sodium Chloride 0.9% 1,000 ML IV SCH (16:45)
[2022-12-13] MEDS ORDERED: Albuterol 8 GM Inhaler INH PRN (16:52)
[2022-12-13] MEDS ORDERED: Ondansetron 4 MG Tab.DIS PO PRN (16:52)
[2022-12-13] MEDS ORDERED: 50% Dextrose in Water 50 ML Syringe IVPUSH PRN (16:58)
[2022-12-13] MEDS ORDERED: Glucagon,Human Recombinant 1 MG Vial IM PRN (16:58)
[2022-12-13] MEDS ORDERED: Magnesium Sulfate/Water 2 GM in Premix Bag 1 BAG IV ONE ×2 (17:21→20:00)
[2022-12-13] MEDS ORDERED: Insulin Lispro 100 Unit/ML 3 ML KwikPen SUBCUT ONE (18:17)
[2022-12-13] MEDS: Insulin Lispro 100 Unit/ML 3 ML KwikPen SUBCUT SCH (18:18)
[2022-12-13] MEDS: Sodium Chloride 0.9% 10 ML Syringe FLUSH PRN (18:48)
[2022-12-13] MEDS: Sodium Chloride 0.9% 1,000 ML IV SCH (18:59)
[2022-12-13 20:31] LABS: APPEARANCE,URINE CLEAR (CLEAR); BACTERIA,URINE MODERATE (NS); BILIRUBIN,URINE NEGATIVE (NEGATIVE); COLOR,URINE YELLOW (YELLOW); GLUCOSE,URINE 50 mg/dL (NORMAL); HYALINE CASTS,URINE FEW (NS); KETONES,URINE NEGATIVE (NEGATIVE); LEUKOCYTE ESTERASE,URINE MODERATE (NEGATIVE); NITRITE,URINE NEGATIVE (NEGATIVE); OCCULT BLOOD,URINE NEGATIVE (NEGATIVE); PROTEIN,URINE NEGATIVE (NEGATIVE); RBC,URINE 0-5 (0-5); SQUAMOUS EPITHELIAL CELLS,UR MODERATE (NS,R,O); UROBILINOGEN,URINE NORMAL (NEGATIVE); WBC,URINE 0-5 (0-5)
[2022-12-13] MEDS: Formoterol/Mometasone 200-5 MCG 8.8 GM Inhaler IH SCH (20:54)
[2022-12-13] MEDS: Mirtazapine 15 MG Tab PO SCH (20:55)
[2022-12-13] MEDS: QUEtiapine 100 MG Tab PO SCH (20:55)
[2022-12-13] MEDS: Gabapentin 300 MG Cap PO SCH (20:55)
[2022-12-14] MEDS: Sodium Chloride 0.9% 1,000 ML IV SCH ×3 (03:01→19:20)
[2022-12-14] MEDS: Levothyroxine 75 MCG Tab PO SCH (05:54)
[2022-12-14] MEDS: Pantoprazole 40 MG Tab.CR PO SCH (05:54)
[2022-12-14 06:42] LABS: BLOOD UREA NITROGEN,BUN 66 mg/dL (7-18); BUN/CREATININE RATIO 15.3 (9-20); CALCIUM 7.3 mg/dL (8.6-10.2); CARBON DIOXIDE,CO2 24 mmol/L (21-32); CHLORIDE,CL 104 mmol/L (100-110); EST CRCL DRUG DOSING (CG) 9.81 mL/min; ESTIMATED GFR 11 mL/min (>60); GLUCOSE RANDOM 101 mg/dL (80-116); MAGNESIUM 1.3 mg/dL (1.8-2.5); POTASSIUM,K 3.8 mmol/L (3.5-5.3); SODIUM,NA 140 mmol/L (135-145)
[2022-12-14 06:46] LABS: CREATININE 4.3 mg/dL (0.55-1.02)
[2022-12-14 06:50] LABS: BASOPHILS PERCENT AUTO 0.4 % (0.2-1.5); EOSINOPHILS ABSOLUTE AUTO 0.1 x10-3/uL (0.0-0.8); EOSINOPHILS PERCENT AUTO 1.1 % (0.6-8.1); HEMATOCRIT 27.6 % (34.2-48.2); LYMPHOCYTES ABSOLUTE AUTO 2.8 x10-3/uL (1.0-4.4); LYMPHOCYTES PERCENT AUTO 47.5 % (18.4-52.1); MEAN CORPUSCULAR HEMOGLOBIN 29.3 pg (23.9-33.9); MEAN CORPUSCULAR HGB CONC 32.6 g/dL (31.9-34.8); MEAN CORPUSCULAR VOLUME 89.5 fL (76.7-100.5); MEAN PLATELET VOLUME 8.7 fL (7.1-12.4); MONOCYTES ABSOLUTE AUTO 0.4 x10-3/uL (0.3-1.0); MONOCYTES PERCENT AUTO 6.9 % (4.4-15.7); NEUTROPHILS ABSOLUTE AUTO 2.6 x10-3/uL (1.5-6.3); NEUTROPHILS PERCENT AUTO 44.1 % (30.8-76.2); PLATELET COUNT,PLT 304 x10(3)uL (151-488); RED BLOOD CELL COUNT 3.08 x10(6)uL (3.60-5.20); RED CELL DISTRIBUTION WIDTH 14.7 % (12.3-16.5)
[2022-12-14] MEDS: Venlafaxine 150 MG Cap.ER PO SCH (08:48)
[2022-12-14] MEDS: buPROPion 150 MG Tab.ER PO SCH (08:48)
[2022-12-14] MEDS: Formoterol/Mometasone 200-5 MCG 8.8 GM Inhaler IH SCH ×2 (08:48→20:21)
[2022-12-14] MEDS: Insulin Lispro 100 Unit/ML 3 ML KwikPen SUBCUT SCH ×3 (08:55→18:19)
[2022-12-14] MEDS: Calcium Carbonate 500 MG Tablet PO SCH (12:03)
[2022-12-14] MEDS: Magnesium Chloride 64 MG Tab.ER PO SCH ×2 (12:05→20:31)
[2022-12-14] MEDS: Cyanocobalamin (Vitamin B12) 1,000 MCG Tab PO SCH (12:20)
[2022-12-14] MEDS: QUEtiapine 100 MG Tab PO SCH (20:24)
[2022-12-14] MEDS: Mirtazapine 15 MG Tab PO SCH (20:26)
[2022-12-14] MEDS: Gabapentin 300 MG Cap PO SCH (20:30)
[2022-12-15] MEDS: Sodium Chloride 0.9% 1,000 ML IV SCH (03:39)
[2022-12-15] MEDS: Levothyroxine 75 MCG Tab PO SCH (05:31)
[2022-12-15] MEDS: Pantoprazole 40 MG Tab.CR PO SCH (05:31)
[2022-12-15 06:52] LABS: ALBUMIN 2.6 g/dL (3.2-4.6); BLOOD UREA NITROGEN,BUN 45 mg/dL (7-18); BUN/CREATININE RATIO 18.8 (9-20); CALCIUM 6.9 mg/dL (8.6-10.2); CARBON DIOXIDE,CO2 25 mmol/L (21-32); CHLORIDE,CL 107 mmol/L (100-110); EST CRCL DRUG DOSING (CG) 17.58 mL/min; ESTIMATED GFR 22 mL/min (>60); GLUCOSE RANDOM 129 mg/dL (80-116); PHOSPHORUS 2.1 mg/dL (2.6-4.6); POTASSIUM,K 3.4 mmol/L (3.5-5.3); SODIUM,NA 141 mmol/L (135-145)
[2022-12-15 06:56] LABS: CREATININE 2.4 mg/dL (0.55-1.02)
[2022-12-15 08:39] VITALS: BP 127/66; PULSE 101
[2022-12-15] MEDS: Insulin Lispro 100 Unit/ML 3 ML KwikPen SUBCUT SCH ×2 (08:41→12:13)
[2022-12-15] MEDS: Calcium Carbonate 500 MG Tablet PO SCH (08:42)
[2022-12-15] MEDS: Venlafaxine 150 MG Cap.ER PO SCH (08:42)
[2022-12-15] MEDS: Formoterol/Mometasone 200-5 MCG 8.8 GM Inhaler IH SCH (08:42)
[2022-12-15] MEDS: buPROPion 150 MG Tab.ER PO SCH (08:42)
[2022-12-15] MEDS: Cyanocobalamin (Vitamin B12) 1,000 MCG Tab PO SCH (08:42)
[2022-12-15] MEDS ORDERED: Cetirizine 10 MG Tab PO ONE (09:20)
[2022-12-15] MEDS ORDERED: Magnesium Sulfate/Water 2 GM in Premix Bag 1 BAG IV ONE (09:35)
[2022-12-15] MEDS: Magnesium Chloride 64 MG Tab.ER PO SCH (09:39)
[2022-12-15] MEDS: Sodium Chloride 0.9% 10 ML Syringe FLUSH PRN (13:50)
[2022-12-15 16:26] LABS: EST CRCL DRUG DOSING (CG) 19.18 mL/min; MAGNESIUM 1.3 mg/dL (1.8-2.5)
[2022-12-15 16:28] LABS: CREATININE 2.2 mg/dL (0.55-1.02)
== END 2022-12-15 16:35 | disposition home health service (06) | DRG 683 ==
LOC: FB.MS 16:35
PROVIDERS: ADMIT Family Medicine; ATTEND Family Medicine
DX: N17.9 Acute kidney failure, unspecified (principal); E87.20 Acidosis, unspecified; E83.42 Hypomagnesemia; E86.0 Dehydration; I10 Essential (primary) hypertension; E03.9 Hypothyroidism, unspecified; F41.9 Anxiety disorder, unspecified; Z66 Do not resuscitate; J44.9 Chronic obstructive pulmonary disease, unspecified; F32.9 Major depressive disorder, single episode, unspecified; H54.7 Unspecified visual loss; K59.09 Other constipation; G47.00 Insomnia, unspecified; M19.90 Unspecified osteoarthritis, unspecified site; E66.9 Obesity, unspecified; G43.909 Migraine, unspecified, not intractable, without status migrainosus; E11.42 Type 2 diabetes mellitus with diabetic polyneuropathy; Z88.5 Allergy status to narcotic agent; Z79.899 Other long term (current) drug therapy; Z79.84 Long term (current) use of oral hypoglycemic drugs; Z90.49 Acquired absence of other specified parts of digestive tract; Z79.890 Hormone replacement therapy; Z90.710 Acquired absence of both cervix and uterus; Z98.890 Other specified postprocedural states; Z90.721 Acquired absence of ovaries, unilateral; Z68.24 Body mass index [BMI] 24.0-24.9, adult
CPT/HCPCS: 36415; 80048; 80069; 81001; 82565; 82947; 83735; 85025; 99223; 99233; 99238; A9270-GY; J1815; J3475; J3490; J7030

== ENCOUNTER 2023-06-23 16:10 | Emergency (ER) | payer MEDICARE ==
[2023-06-23] MEDS ORDERED: Ondansetron 4 MG Tab.DIS PO ONE (16:11)
[2023-06-23] MEDS ORDERED: Albuterol/Ipratropium 3.0-0.5 MG/3 ML Neb Soln NEB ONE (16:33)
[2023-06-23] MEDS ORDERED: 50% Dextrose in Water 50 ML Syringe IVPUSH ONE ×2 (16:33→18:16)
[2023-06-23] MEDS ORDERED: 50% Dextrose in Water 50 ML Syringe IVPUSH PRN (16:33)
[2023-06-23] MEDS ORDERED: Glucagon,Human Recombinant 1 MG Vial IM PRN (16:33)
[2023-06-23] MEDS ORDERED: Insulin Regular, Human 100 Units/ML 3 ML Vial IV ONE (16:33)
[2023-06-23] MEDS: Sodium Chloride 0.9% 1,000 ML IV SCH ×2 (16:50→18:05)
[2023-06-23] MEDS ORDERED: Sodium Bicarbonate 8.4% 50 MEQ/50 ML Syringe IVPUSH ONE (17:23)
[2023-06-23] MEDS ORDERED: Sodium Chloride 0.9% 1,000 ML IV SCH (18:15)
[2023-06-23 18:21] LABS: BLOOD UREA NITROGEN,BUN 33 mg/dL (7-18); CALCIUM 8.9 mg/dL (8.6-10.2); CARBON DIOXIDE,CO2 30 mmol/L (21-32); CHLORIDE,CL 105 mmol/L (100-110); CREATININE 1.5 mg/dL (0.55-1.02); EST CRCL DRUG DOSING (CG) 27.46 mL/min; ESTIMATED GFR 38 mL/min (>60); POTASSIUM,K 4.7 mmol/L (3.5-5.3); SODIUM,NA 140 mmol/L (135-145)
[2023-06-23 18:25] LABS: GLUCOSE RANDOM 46 mg/dL (80-116)
[2023-06-23 19:23] VITALS: BP 142/64; PULSE 85
== END 2023-06-23 19:09 | disposition home or self-care (01) ==
LOC: FB.ED 16:10
DX: E86.0 Dehydration (principal); N17.9 Acute kidney failure, unspecified; E87.5 Hyperkalemia; E11.65 Type 2 diabetes mellitus with hyperglycemia; I10 Essential (primary) hypertension; E78.00 Pure hypercholesterolemia, unspecified; E11.40 Type 2 diabetes mellitus with diabetic neuropathy, unspecified; E03.9 Hypothyroidism, unspecified; F17.210 Nicotine dependence, cigarettes, uncomplicated; Z88.5 Allergy status to narcotic agent; E66.9 Obesity, unspecified; Z68.30 Body mass index [BMI] 30.0-30.9, adult; Z79.899 Other long term (current) drug therapy; Z90.49 Acquired absence of other specified parts of digestive tract; Z90.710 Acquired absence of both cervix and uterus
CPT/HCPCS: 36415; 71045; 80048; 82947; 93005; 93010; 94640; 96361; 96374; 96375; 96376; 99284; J1815; J7030; Q0162; J7620

== ENCOUNTER 2023-11-22 13:05 | Emergency (ER) | payer MEDICARE ==
[2023-11-22] MEDS ORDERED: Sodium Chloride 0.9% 10 ML Syringe FLUSH PRN (13:32)
[2023-11-22] MEDS: Atropine/Diphenoxylate 0.025-2.5 MG Tab PO ONE (13:43)
[2023-11-22] MEDS: Sodium Chloride 0.9% 1,000 ML IV SCH (14:00)
[2023-11-22 14:04] LABS: BASOPHILS PERCENT AUTO 0.7 % (0.2-1.5); EOSINOPHILS ABSOLUTE AUTO 0.1 x10-3/uL (0.0-0.8); EOSINOPHILS PERCENT AUTO 1.1 % (0.6-8.1); HEMATOCRIT 36.9 % (34.2-48.2); HEMOGLOBIN 12.2 g/dL (11.4-15.5); LYMPHOCYTES ABSOLUTE AUTO 1.7 x10-3/uL (1.0-4.4); LYMPHOCYTES PERCENT AUTO 25.5 % (18.4-52.1); MEAN CORPUSCULAR HEMOGLOBIN 30.7 pg (23.9-33.9); MEAN CORPUSCULAR VOLUME 92.9 fL (76.7-100.5); MEAN PLATELET VOLUME 7.2 fL (7.1-12.4); MONOCYTES ABSOLUTE AUTO 0.6 x10-3/uL (0.3-1.0); MONOCYTES PERCENT AUTO 9.4 % (4.4-15.7); NEUTROPHILS ABSOLUTE AUTO 4.2 x10-3/uL (1.5-6.3); NEUTROPHILS PERCENT AUTO 63.3 % (30.8-76.2); PLATELET COUNT,PLT 465 x10(3)uL (151-488); RED BLOOD CELL COUNT 3.98 x10(6)uL (3.60-5.20); RED CELL DISTRIBUTION WIDTH 15.8 % (12.3-16.5); WHITE BLOOD CELL COUNT,WBC 6.7 x10-3/uL (3.0-10.3)
[2023-11-22 14:20] LABS: A/G RATIO 0.7; ALANINE AMINOTRANSFERASE,ALT 20 U/L (12-36); ALBUMIN 3.2 g/dL (3.2-4.6); ALKALINE PHOSPHATASE 164 IU/L (56-112); ASPARTATE AMNIOTRANSFERASE,AST 21 IU/L (5-25); BILIRUBIN TOTAL 0.4 mg/dL (0.1-1.3); BLOOD UREA NITROGEN,BUN 37 mg/dL (7-18); BUN/CREATININE RATIO 16.8 (9-20); CALCIUM 8.9 mg/dL (8.6-10.2); CARBON DIOXIDE,CO2 30 mmol/L (21-32); CHLORIDE,CL 92 mmol/L (100-110); EST CRCL DRUG DOSING (CG) 18.91 mL/min; ESTIMATED GFR 24 mL/min (>60); GLUCOSE RANDOM 99 mg/dL (80-116); POTASSIUM,K 4.1 mmol/L (3.5-5.3); PROTEIN TOTAL,TP 7.8 g/dL (6.0-8.0); SODIUM,NA 132 mmol/L (135-145)
[2023-11-22 14:41] LABS: CREATININE 2.2 mg/dL (0.55-1.02)
[2023-11-22 15:21] LABS: INFLUENZA A NAA NEGATIVE (NEGATIVE); INFLUENZA B NAA NEGATIVE (NEGATIVE); RESPIRATORY SYNCYTIAL VIR NAA NEGATIVE (NEGATIVE)
[2023-11-22 15:32] LABS: CORONAVIRUS COVID-19 NAA NEGATIVE (NEGATIVE)
[2023-11-22 16:42] VITALS: BP 114/64; PULSE 89
== END 2023-11-22 15:40 | disposition home or self-care (01) ==
LOC: FB.ED 13:05
DX: A08.4 Viral intestinal infection, unspecified (principal); E86.0 Dehydration; I12.9 Hypertensive chronic kidney disease with stage 1 through stage 4 chronic kidney disease, or unspecified chronic kidney disease; N18.4 Chronic kidney disease, stage 4 (severe); E11.22 Type 2 diabetes mellitus with diabetic chronic kidney disease; E03.9 Hypothyroidism, unspecified; E66.9 Obesity, unspecified; E11.40 Type 2 diabetes mellitus with diabetic neuropathy, unspecified; J44.9 Chronic obstructive pulmonary disease, unspecified; E78.00 Pure hypercholesterolemia, unspecified; Z79.899 Other long term (current) drug therapy; Z88.5 Allergy status to narcotic agent
CPT/HCPCS: 0241U; 36415; 80053; 85025; 96360; 99284; A9270; J7030

== ENCOUNTER 2023-11-23 03:39 | Emergency (ER) | payer MEDICARE ==
[2023-11-23] MEDS: Sodium Chloride 0.9% 1,000 ML IV ONE (04:12)
[2023-11-23 04:30] LABS: A/G RATIO 0.7; ALANINE AMINOTRANSFERASE,ALT 16 U/L (12-36); ALBUMIN 3.1 g/dL (3.2-4.6); ALKALINE PHOSPHATASE 156 IU/L (56-112); ASPARTATE AMNIOTRANSFERASE,AST 27 IU/L (5-25); BILIRUBIN TOTAL 0.5 mg/dL (0.1-1.3); BLOOD UREA NITROGEN,BUN 35 mg/dL (7-18); BUN/CREATININE RATIO 17.5 (9-20); CALCIUM 8.5 mg/dL (8.6-10.2); CARBON DIOXIDE,CO2 29 mmol/L (21-32); CHLORIDE,CL 94 mmol/L (100-110); ESTIMATED GFR 27 mL/min (>60); GLUCOSE RANDOM 114 mg/dL (80-116); POTASSIUM,K 4.5 mmol/L (3.5-5.3); PROTEIN TOTAL,TP 7.5 g/dL (6.0-8.0); SODIUM,NA 133 mmol/L (135-145)
[2023-11-23 04:34] LABS: BASOPHILS PERCENT AUTO 0.3 % (0.2-1.5); EOSINOPHILS ABSOLUTE AUTO 0.1 x10-3/uL (0.0-0.8); EOSINOPHILS PERCENT AUTO 1.2 % (0.6-8.1); HEMATOCRIT 33.1 % (34.2-48.2); LYMPHOCYTES ABSOLUTE AUTO 1.5 x10-3/uL (1.0-4.4); LYMPHOCYTES PERCENT AUTO 18.8 % (18.4-52.1); MEAN CORPUSCULAR HEMOGLOBIN 30.8 pg (23.9-33.9); MEAN CORPUSCULAR HGB CONC 33.2 g/dL (31.9-34.8); MEAN CORPUSCULAR VOLUME 92.7 fL (76.7-100.5); MEAN PLATELET VOLUME 7.2 fL (7.1-12.4); MONOCYTES ABSOLUTE AUTO 0.7 x10-3/uL (0.3-1.0); MONOCYTES PERCENT AUTO 9.2 % (4.4-15.7); NEUTROPHILS ABSOLUTE AUTO 5.6 x10-3/uL (1.5-6.3); NEUTROPHILS PERCENT AUTO 70.5 % (30.8-76.2); PLATELET COUNT,PLT 443 x10(3)uL (151-488); RED BLOOD CELL COUNT 3.57 x10(6)uL (3.60-5.20); RED CELL DISTRIBUTION WIDTH 15.7 % (12.3-16.5); WHITE BLOOD CELL COUNT,WBC 7.9 x10-3/uL (3.0-10.3)
[2023-11-23 05:53] VITALS: BP 125/74; PULSE 75
== END 2023-11-23 05:40 | disposition home or self-care (01) ==
LOC: FB.ED 03:39
DX: R19.7 Diarrhea, unspecified (principal); I12.9 Hypertensive chronic kidney disease with stage 1 through stage 4 chronic kidney disease, or unspecified chronic kidney disease; N18.4 Chronic kidney disease, stage 4 (severe); F41.1 Generalized anxiety disorder; E78.00 Pure hypercholesterolemia, unspecified; J44.9 Chronic obstructive pulmonary disease, unspecified; E11.22 Type 2 diabetes mellitus with diabetic chronic kidney disease; E11.42 Type 2 diabetes mellitus with diabetic polyneuropathy; E03.9 Hypothyroidism, unspecified; Z88.5 Allergy status to narcotic agent; Z79.899 Other long term (current) drug therapy
CPT/HCPCS: 80053; 85025; 96360; 99283; 99284-25; J7030

== ENCOUNTER 2024-02-04 11:50 | Inpatient (IN) | payer MEDICARE ==
[2024-02-04 12:21] LABS: APPEARANCE,URINE CLEAR (CLEAR); BILIRUBIN,URINE NEGATIVE (NEGATIVE); COLOR,URINE YELLOW (YELLOW); GLUCOSE,URINE NORMAL (NORMAL); KETONES,URINE NEGATIVE (NEGATIVE); LEUKOCYTE ESTERASE,URINE SMALL (NEGATIVE); NITRITE,URINE NEGATIVE (NEGATIVE); OCCULT BLOOD,URINE NEGATIVE (NEGATIVE); PROTEIN,URINE NEGATIVE (NEGATIVE); RBC,URINE 0-5 (0-5); SQUAMOUS EPITHELIAL CELLS,UR RARE (NS,R,O); UROBILINOGEN,URINE NORMAL (NEGATIVE)
[2024-02-04 12:22] LABS: BACTERIA,URINE FEW (NS)
[2024-02-04 12:41] LABS: HEMATOCRIT 36.6 % (34.2-48.2); HEMOGLOBIN 11.8 g/dL (11.4-15.5); MEAN CORPUSCULAR HGB CONC 32.3 g/dL (31.9-34.8); MEAN PLATELET VOLUME 7.8 fL (7.1-12.4); PLATELET COUNT,PLT 283 x10(3)uL (151-488); RED BLOOD CELL COUNT 4.07 x10(6)uL (3.60-5.20); RED CELL DISTRIBUTION WIDTH 14.9 % (12.3-16.5); WHITE BLOOD CELL COUNT,WBC 13.3 x10-3/uL (3.0-10.3)
[2024-02-04 12:49] LABS: BLOOD UREA NITROGEN,BUN 18 mg/dL (7-18); BUN/CREATININE RATIO 13.8 (9-20); CALCIUM 8.7 mg/dL (8.6-10.2); CARBON DIOXIDE,CO2 23 mmol/L (21-32); CHLORIDE,CL 104 mmol/L (100-110); CREATININE 1.3 mg/dL (0.55-1.02); ESTIMATED GFR 45 mL/min (>60); GLUCOSE RANDOM 185 mg/dL (80-116); POTASSIUM,K 5.1 mmol/L (3.5-5.3); SODIUM,NA 138 mmol/L (135-145)
[2024-02-04 12:53] LABS: LYMPHOCYTES PERCENT MAN 5 % (13-37); MONOCYTES PERCENT MAN 6 % (4-12); SEG NEUTROPHILS PERCENT MAN 89 % (46-82)
[2024-02-04 12:55] LABS: A/G RATIO 0.9; ALANINE AMINOTRANSFERASE,ALT 31 U/L (12-36); ALBUMIN 3.2 g/dL (3.2-4.6); ALKALINE PHOSPHATASE 121 IU/L (56-112); ASPARTATE AMNIOTRANSFERASE,AST 23 IU/L (5-25); BILIRUBIN TOTAL 0.2 mg/dL (0.1-1.3); CREATINE KINASE,CK 65 IU/L (60-160); PROTEIN TOTAL,TP 6.9 g/dL (6.0-8.0)
[2024-02-04] MEDS ORDERED: cefTRIAXone 1 GM in Sodium Chloride 0.9% 50 ML IV ONE (13:04)
[2024-02-04] MEDS: Sodium Chloride 0.9% 1,000 ML IV ONE (13:06)
[2024-02-04] MEDS: Azithromycin 500 MG in Sodium Chloride 0.9% 250 ML IV ONE (13:30)
[2024-02-04] MEDS: cefTRIAXone 1 GM Vial IVPUSH SCH (13:31)
[2024-02-04] MEDS: methylPREDNISolone Sodium Succinate 125 MG/2 ML SDV IVPUSH ONE (13:33)
[2024-02-04] MEDS: Sodium Chloride 0.9% 1,000 ML IV SCH (16:02)
[2024-02-04] MEDS ORDERED: Ibuprofen 600 MG Tab PO PRN (16:26)
[2024-02-04] MEDS ORDERED: Glucagon,Human Recombinant 1 MG Vial IM PRN (16:26)
[2024-02-04] MEDS ORDERED: 50% Dextrose in Water 50 ML Syringe IVPUSH PRN (16:26)
[2024-02-04] MEDS ORDERED: Acetaminophen 500 MG Tab PO PRN (16:29)
[2024-02-04] MEDS ORDERED: Carboxymethylcellulose Sodium 0.5% Ophth Soln 15 ML Bottle EYEBOTH PRN (16:29)
[2024-02-04] MEDS ORDERED: traMADol 50 MG Tab PO PRN (16:37)
[2024-02-04] MEDS: Acetaminophen 500 MG Tab PO PRN (17:59)
[2024-02-04] MEDS: Enoxaparin 40 MG/0.4 ML Syringe SUBCUT SCH (17:59)
[2024-02-04] MEDS: Insulin Lispro 100 Unit/ML 3 ML KwikPen SUBCUT SCH (18:01)
[2024-02-04] MEDS: Atropine/Diphenoxylate 0.025-2.5 MG Tab PO SCH (20:52)
[2024-02-04] MEDS: Mirtazapine 15 MG Tab PO SCH (20:52)
[2024-02-04] MEDS: Gabapentin 300 MG Cap PO SCH (20:52)
[2024-02-04] MEDS: methylPREDNISolone Sodium Succinate 125 MG/2 ML SDV IVPUSH SCH (20:53)
[2024-02-04] MEDS: Nicotine 21 MG/24 Hr Patch TRDERM SCH (20:56)
[2024-02-05] MEDS: Levothyroxine 75 MCG Tab PO SCH (04:59)
[2024-02-05 06:50] LABS: HEMATOCRIT 31.1 % (34.2-48.2); HEMOGLOBIN 10.1 g/dL (11.4-15.5); MEAN CORPUSCULAR HEMOGLOBIN 29.2 pg (23.9-33.9); MEAN CORPUSCULAR HGB CONC 32.5 g/dL (31.9-34.8); MEAN CORPUSCULAR VOLUME 89.9 fL (76.7-100.5); MEAN PLATELET VOLUME 8.5 fL (7.1-12.4); PLATELET COUNT,PLT 230 x10(3)uL (151-488); RED BLOOD CELL COUNT 3.46 x10(6)uL (3.60-5.20); WHITE BLOOD CELL COUNT,WBC 14.3 x10-3/uL (3.0-10.3)
[2024-02-05 07:07] LABS: HEMOGLOBIN A1C 7.9 % (<5.7)
[2024-02-05 07:10] LABS: A/G RATIO 0.7; ALANINE AMINOTRANSFERASE,ALT 19 U/L (12-36); ALBUMIN 2.4 g/dL (3.2-4.6); ALKALINE PHOSPHATASE 89 IU/L (56-112); ASPARTATE AMNIOTRANSFERASE,AST 18 IU/L (5-25); BILIRUBIN TOTAL 0.2 mg/dL (0.1-1.3); BLOOD UREA NITROGEN,BUN 19 mg/dL (7-18); CALCIUM 8.5 mg/dL (8.6-10.2); CARBON DIOXIDE,CO2 21 mmol/L (21-32); CHLORIDE,CL 105 mmol/L (100-110); EST CRCL DRUG DOSING (CG) 40.63 mL/min; ESTIMATED GFR 61 mL/min (>60); GLUCOSE RANDOM 227 mg/dL (80-116); POTASSIUM,K 4.8 mmol/L (3.5-5.3); SODIUM,NA 136 mmol/L (135-145)
[2024-02-05 07:13] LABS: MAGNESIUM 1.2 mg/dL (1.8-2.5)
[2024-02-05 07:25] LABS: BAND PERCENT MAN 8 % (0-6); LYMPHOCYTES PERCENT MAN 8 % (13-37); MONOCYTES PERCENT MAN 2 % (4-12); SEG NEUTROPHILS PERCENT MAN 82 % (46-82)
[2024-02-05] MEDS: metFORMIN 500 MG Tab.ER PO SCH (08:19)
[2024-02-05] MEDS: Venlafaxine 150 MG Cap.ER PO SCH (08:19)
[2024-02-05] MEDS: Lisinopril 5 MG Tab PO SCH (08:19)
[2024-02-05] MEDS: Magnesium Oxide 400 MG Tab PO SCH ×2 (08:19→09:47)
[2024-02-05] MEDS: Rosuvastatin 10 MG Tab PO SCH (08:20)
[2024-02-05] MEDS: Formoterol/Mometasone 200-5 MCG 8.8 GM Inhaler INH SCH (08:20)
[2024-02-05] MEDS: Cyanocobalamin (Vitamin B12) 1,000 MCG Tab PO SCH (08:20)
[2024-02-05] MEDS: buPROPion 150 MG Tab.ER PO SCH (08:23)
[2024-02-05] MEDS: Magnesium Sulfate/Water 2 GM in Premix Bag 1 BAG IV ONE (09:48)
[2024-02-05] MEDS: cefTRIAXone 1 GM Vial IVPUSH SCH (12:20)
[2024-02-05] MEDS: Azithromycin 500 MG in Sodium Chloride 0.9% 250 ML IV SCH (12:24)
[2024-02-05] MEDS ORDERED: cefTRIAXone 1 GM in Sodium Chloride 0.9% 50 ML IV SCH (12:30)
[2024-02-05] MEDS: Magnesium Sulfate/Water 2 GM in Premix Bag 1 BAG IV SCH (13:59)
[2024-02-05] MEDS: Sodium Chloride 0.9% 10 ML Syringe FLUSH PRN (19:55)
[2024-02-05] MEDS: Remove Patch*NICOTINE TRDERM SCH (20:08)
[2024-02-05] MEDS: Nicotine 21 MG/24 Hr Patch TRDERM SCH (20:09)
[2024-02-06 06:40] LABS: HEMOGLOBIN 10.4 g/dL (11.4-15.5); MEAN CORPUSCULAR HEMOGLOBIN 29.4 pg (23.9-33.9); MEAN CORPUSCULAR HGB CONC 32.5 g/dL (31.9-34.8); MEAN CORPUSCULAR VOLUME 90.4 fL (76.7-100.5); MEAN PLATELET VOLUME 8.7 fL (7.1-12.4); PLATELET COUNT,PLT 255 x10(3)uL (151-488); RED BLOOD CELL COUNT 3.54 x10(6)uL (3.60-5.20); RED CELL DISTRIBUTION WIDTH 14.7 % (12.3-16.5); WHITE BLOOD CELL COUNT,WBC 10.7 x10-3/uL (3.0-10.3)
[2024-02-06 06:45] LABS: BLOOD UREA NITROGEN,BUN 27 mg/dL (7-18); BUN/CREATININE RATIO 20.8 (9-20); CALCIUM 9.1 mg/dL (8.6-10.2); CARBON DIOXIDE,CO2 25 mmol/L (21-32); CHLORIDE,CL 103 mmol/L (100-110); CREATININE 1.3 mg/dL (0.55-1.02); EST CRCL DRUG DOSING (CG) 31.25 mL/min; ESTIMATED GFR 45 mL/min (>60); GLUCOSE RANDOM 307 mg/dL (80-116); POTASSIUM,K 5.1 mmol/L (3.5-5.3); SODIUM,NA 136 mmol/L (135-145)
[2024-02-06 06:56] LABS: BAND PERCENT MAN 3 % (0-6); LYMPHOCYTES PERCENT MAN 7 % (13-37); MONOCYTES PERCENT MAN 3 % (4-12); SEG NEUTROPHILS PERCENT MAN 87 % (46-82)
[2024-02-06] MEDS ORDERED: Atropine/Diphenoxylate 0.025-2.5 MG Tab PO PRN (09:38)
[2024-02-06] MEDS: Polyethylene Glycol 3350 Powder 17 GM Packet PO SCH (11:51)
[2024-02-06] MEDS: Benzonatate 100 MG Cap PO PRN (11:51)
[2024-02-06 11:52] LABS: BILIRUBIN,URINE NEGATIVE (NEGATIVE); GLUCOSE,URINE >1000 mg/dL (NORMAL); KETONES,URINE NEGATIVE (NEGATIVE); LEUKOCYTE ESTERASE,URINE NEGATIVE (NEGATIVE); NITRITE,URINE NEGATIVE (NEGATIVE); OCCULT BLOOD,URINE MODERATE (NEGATIVE); PROTEIN,URINE TRACE mg/dL (NEGATIVE); UROBILINOGEN,URINE NORMAL (NEGATIVE)
[2024-02-06] MEDS: Sodium Chloride 0.9% 1,000 ML IV SCH (12:01)
[2024-02-06 12:12] LABS: APPEARANCE,URINE CLEAR (CLEAR); COLOR,URINE YELLOW (YELLOW)
[2024-02-06 12:13] LABS: BACTERIA,URINE RARE (NS); HYALINE CASTS,URINE RARE (NS); RBC,URINE 0-5 (0-5); SQUAMOUS EPITHELIAL CELLS,UR RARE (NS,R,O); WBC,URINE 0-5 (0-5)
[2024-02-06] MEDS: Ondansetron 4 MG Tab.DIS PO PRN (13:56)
[2024-02-06] MEDS: methylPREDNISolone Sodium Succinate 40 MG/1 ML SDV IVPUSH SCH (19:38)
[2024-02-06] MEDS: Albuterol/Ipratropium 3.0-0.5 MG/3 ML Neb Soln NEB PRN (23:11)
[2024-02-07] MEDS: Melatonin 3 MG Tab PO PRN ×2 (00:31→21:48)
[2024-02-07 06:37] LABS: HEMATOCRIT 28.1 % (34.2-48.2); HEMOGLOBIN 9.3 g/dL (11.4-15.5); MEAN CORPUSCULAR HEMOGLOBIN 29.3 pg (23.9-33.9); MEAN CORPUSCULAR HGB CONC 32.9 g/dL (31.9-34.8); MEAN PLATELET VOLUME 8.2 fL (7.1-12.4); PLATELET COUNT,PLT 271 x10(3)uL (151-488); RED BLOOD CELL COUNT 3.16 x10(6)uL (3.60-5.20); RED CELL DISTRIBUTION WIDTH 14.8 % (12.3-16.5); WHITE BLOOD CELL COUNT,WBC 10.4 x10-3/uL (3.0-10.3)
[2024-02-07 06:42] LABS: BLOOD UREA NITROGEN,BUN 26 mg/dL (7-18); BUN/CREATININE RATIO 23.6 (9-20); CALCIUM 8.8 mg/dL (8.6-10.2); CARBON DIOXIDE,CO2 23 mmol/L (21-32); CHLORIDE,CL 106 mmol/L (100-110); CREATININE 1.1 mg/dL (0.55-1.02); EST CRCL DRUG DOSING (CG) 36.94 mL/min; ESTIMATED GFR 55 mL/min (>60); GLUCOSE RANDOM 193 mg/dL (80-116); MAGNESIUM 1.8 mg/dL (1.8-2.5); POTASSIUM,K 4.8 mmol/L (3.5-5.3); SODIUM,NA 137 mmol/L (135-145)
[2024-02-07 07:03] LABS: LYMPHOCYTES PERCENT MAN 10 % (13-37); MONOCYTES PERCENT MAN 10 % (4-12); SEG NEUTROPHILS PERCENT MAN 80 % (46-82)
[2024-02-07] MEDS: Albuterol/Ipratropium 3.0-0.5 MG/3 ML Neb Soln NEB SCH (08:07)
[2024-02-07] MEDS: Iopamidol 755 Mg/ML 100 ML Bottle IV SCH (14:27)
[2024-02-07] MEDS: Albuterol 0.083% 2.5 MG/3 ML Neb Soln NEB PRN (16:23)
[2024-02-07] MEDS: methylPREDNISolone Sodium Succinate 40 MG/1 ML SDV IVPUSH SCH (20:01)
[2024-02-07 21:31] LABS: CREATININE, URINE - PER VOLUME 36 mg/dL; HOURS COLLECTED Random hr; SODIUM, URINE - PER VOLUME 113 mmol/L; TOTAL VOLUME Random mL
[2024-02-08 02:19] LABS: CREATININE,URINE - PER VOLUME 36 mg/dL; HOURS COLLECTED Random hr; TOTAL VOLUME Random mL
[2024-02-08 06:53] LABS: HEMATOCRIT 28.4 % (34.2-48.2); HEMOGLOBIN 9.3 g/dL (11.4-15.5); MEAN CORPUSCULAR HGB CONC 32.7 g/dL (31.9-34.8); MEAN CORPUSCULAR VOLUME 88.7 fL (76.7-100.5); MEAN PLATELET VOLUME 8.2 fL (7.1-12.4); PLATELET COUNT,PLT 307 x10(3)uL (151-488); RED CELL DISTRIBUTION WIDTH 14.8 % (12.3-16.5); WHITE BLOOD CELL COUNT,WBC 8.8 x10-3/uL (3.0-10.3)
[2024-02-08 06:58] LABS: BLOOD UREA NITROGEN,BUN 22 mg/dL (7-18); CALCIUM 8.8 mg/dL (8.6-10.2); CARBON DIOXIDE,CO2 23 mmol/L (21-32); CHLORIDE,CL 105 mmol/L (100-110); CREATININE 1.1 mg/dL (0.55-1.02); EST CRCL DRUG DOSING (CG) 36.94 mL/min; ESTIMATED GFR 55 mL/min (>60); GLUCOSE RANDOM 235 mg/dL (80-116); POTASSIUM,K 4.9 mmol/L (3.5-5.3); SODIUM,NA 138 mmol/L (135-145)
[2024-02-08 07:10] LABS: BAND PERCENT MAN 2 % (0-6); LYMPHOCYTES PERCENT MAN 18 % (13-37); SEG NEUTROPHILS PERCENT MAN 74 % (46-82)
[2024-02-08 07:11] LABS: MONOCYTES PERCENT MAN 6 % (4-12)
[2024-02-08] MEDS: Furosemide 20 MG/2 ML VIAL IVPUSH ONE (10:03)
[2024-02-08] MEDS: methylPREDNISolone Sodium Succinate 40 MG/1 ML SDV IVPUSH SCH (20:18)
[2024-02-09 06:59] LABS: HEMOGLOBIN 9.9 g/dL (11.4-15.5); MEAN CORPUSCULAR HEMOGLOBIN 29.2 pg (23.9-33.9); MEAN CORPUSCULAR HGB CONC 33.1 g/dL (31.9-34.8); MEAN CORPUSCULAR VOLUME 88.3 fL (76.7-100.5); MEAN PLATELET VOLUME 8.4 fL (7.1-12.4); PLATELET COUNT,PLT 326 x10(3)uL (151-488); RED CELL DISTRIBUTION WIDTH 14.7 % (12.3-16.5); WHITE BLOOD CELL COUNT,WBC 9.9 x10-3/uL (3.0-10.3)
[2024-02-09 07:06] LABS: BLOOD UREA NITROGEN,BUN 21 mg/dL (7-18); BUN/CREATININE RATIO 17.5 (9-20); CALCIUM 9.4 mg/dL (8.6-10.2); CARBON DIOXIDE,CO2 29 mmol/L (21-32); CHLORIDE,CL 99 mmol/L (100-110); CREATININE 1.2 mg/dL (0.55-1.02); EST CRCL DRUG DOSING (CG) 33.86 mL/min; ESTIMATED GFR 49 mL/min (>60); GLUCOSE RANDOM 222 mg/dL (80-116); POTASSIUM,K 4.6 mmol/L (3.5-5.3); SODIUM,NA 134 mmol/L (135-145)
[2024-02-09 07:20] LABS: BAND PERCENT MAN 3 % (0-6); LYMPHOCYTES PERCENT MAN 18 % (13-37); MONOCYTES PERCENT MAN 6 % (4-12); SEG NEUTROPHILS PERCENT MAN 73 % (46-82)
[2024-02-09] MEDS: methylPREDNISolone Sodium Succinate 40 MG/1 ML SDV IVPUSH SCH (09:52)
[2024-02-09] MEDS: Furosemide 20 MG/2 ML VIAL IVPUSH ONE (15:23)
[2024-02-09 22:42] LABS: LEGIONELLA PNEUMOPHILA AG,URN Negative (Negative)
[2024-02-09 22:45] LABS: STREPTOCOCCUS PNEUMONIAE AG,UR Negative (Negative)
[2024-02-10 06:38] LABS: HEMATOCRIT 32.3 % (34.2-48.2); HEMOGLOBIN 10.4 g/dL (11.4-15.5); MEAN CORPUSCULAR HEMOGLOBIN 28.6 pg (23.9-33.9); MEAN CORPUSCULAR HGB CONC 32.3 g/dL (31.9-34.8); MEAN CORPUSCULAR VOLUME 88.6 fL (76.7-100.5); PLATELET COUNT,PLT 377 x10(3)uL (151-488); RED BLOOD CELL COUNT 3.65 x10(6)uL (3.60-5.20); RED CELL DISTRIBUTION WIDTH 14.7 % (12.3-16.5); WHITE BLOOD CELL COUNT,WBC 11.8 x10-3/uL (3.0-10.3)
[2024-02-10 06:58] LABS: BAND PERCENT MAN 3 % (0-6); LYMPHOCYTES PERCENT MAN 14 % (13-37); MONOCYTES PERCENT MAN 6 % (4-12); SEG NEUTROPHILS PERCENT MAN 77 % (46-82)
[2024-02-10] MEDS: Lisinopril 5 MG Tab PO SCH (09:27)
[2024-02-10] MEDS: methylPREDNISolone Sodium Succinate 40 MG/1 ML SDV IVPUSH SCH (20:25)
[2024-02-11 06:33] LABS: HEMATOCRIT 31.9 % (34.2-48.2); HEMOGLOBIN 10.5 g/dL (11.4-15.5); MEAN CORPUSCULAR HEMOGLOBIN 28.9 pg (23.9-33.9); MEAN CORPUSCULAR HGB CONC 32.9 g/dL (31.9-34.8); PLATELET COUNT,PLT 376 x10(3)uL (151-488); RED BLOOD CELL COUNT 3.63 x10(6)uL (3.60-5.20); RED CELL DISTRIBUTION WIDTH 14.7 % (12.3-16.5); WHITE BLOOD CELL COUNT,WBC 11.1 x10-3/uL (3.0-10.3)
[2024-02-11 06:43] LABS: BLOOD UREA NITROGEN,BUN 30 mg/dL (7-18); CALCIUM 8.7 mg/dL (8.6-10.2); CARBON DIOXIDE,CO2 28 mmol/L (21-32); CHLORIDE,CL 101 mmol/L (100-110); CREATININE 1.2 mg/dL (0.55-1.02); EST CRCL DRUG DOSING (CG) 33.86 mL/min; ESTIMATED GFR 49 mL/min (>60); GLUCOSE RANDOM 249 mg/dL (80-116); POTASSIUM,K 4.2 mmol/L (3.5-5.3); SODIUM,NA 137 mmol/L (135-145)
[2024-02-11 07:06] LABS: LYMPHOCYTES PERCENT MAN 15 % (13-37); MONOCYTES PERCENT MAN 6 % (4-12); SEG NEUTROPHILS PERCENT MAN 79 % (46-82)
[2024-02-11 13:57] VITALS: BP 138/72; PULSE 100
[2024-02-11 18:39] LABS: MRSA DETECTION BY PCR Not Detected
== END 2024-02-11 14:14 | disposition home health service (06) | DRG 193 ==
LOC: FB.ED 11:50 → FB.MS 13:52
PROVIDERS: ADMIT Family Medicine; ATTEND Internal Medicine
DX: J18.9 Pneumonia, unspecified organism (principal); G93.41 Metabolic encephalopathy; J96.01 Acute respiratory failure with hypoxia; N18.4 Chronic kidney disease, stage 4 (severe); J44.0 Chronic obstructive pulmonary disease with (acute) lower respiratory infection; J44.1 Chronic obstructive pulmonary disease with (acute) exacerbation; E11.40 Type 2 diabetes mellitus with diabetic neuropathy, unspecified; F33.9 Major depressive disorder, recurrent, unspecified; R64 Cachexia; N17.9 Acute kidney failure, unspecified; I12.9 Hypertensive chronic kidney disease with stage 1 through stage 4 chronic kidney disease, or unspecified chronic kidney disease; N18.31 Chronic kidney disease, stage 3a; Z79.890 Hormone replacement therapy; E03.9 Hypothyroidism, unspecified; E78.00 Pure hypercholesterolemia, unspecified; E66.9 Obesity, unspecified; F41.1 Generalized anxiety disorder; M19.90 Unspecified osteoarthritis, unspecified site; E11.42 Type 2 diabetes mellitus with diabetic polyneuropathy; E11.22 Type 2 diabetes mellitus with diabetic chronic kidney disease; K59.09 Other constipation; M54.2 Cervicalgia; E83.41 Hypermagnesemia; M54.9 Dorsalgia, unspecified; I27.20 Pulmonary hypertension, unspecified; G43.909 Migraine, unspecified, not intractable, without status migrainosus; F17.210 Nicotine dependence, cigarettes, uncomplicated; Z88.5 Allergy status to narcotic agent; Z79.84 Long term (current) use of oral hypoglycemic drugs; Z90.49 Acquired absence of other specified parts of digestive tract; Z90.89 Acquired absence of other organs; Z90.710 Acquired absence of both cervix and uterus; Z90.721 Acquired absence of ovaries, unilateral; Z79.899 Other long term (current) drug therapy; Z68.27 Body mass index [BMI] 27.0-27.9, adult
CPT/HCPCS: 36415; 70450; 71045; 71046; 71250; 71275; 80048; 80053; 81001; 82550; 82570; 82947; 83036; 83605; 83735; 84300; 84484; 85025; 85379; 86140; 87040; 87449; 87486; 87581; 87633; 87641; 87798; 87899; 93005; 93010; 94150; 94640; 97161-GP; 97165-GO; 99285; A9270-GY; J0456; J0696; J1650; J1815; J1940; J2919; J3475; J3490; J7030; J7050; J7620; Q0162; Q9967; U0002

== ENCOUNTER 2024-04-07 16:58 | Emergency (ER) | payer MEDICARE ==
[2024-04-07] MEDS ORDERED: Sodium Chloride 0.9% 10 ML Syringe FLUSH PRN (17:23)
[2024-04-07 17:41] LABS: BASOPHILS PERCENT AUTO 0.3 % (0.2-1.5); HEMATOCRIT 37.9 % (34.2-48.2); HEMOGLOBIN 12.6 g/dL (11.4-15.5); LYMPHOCYTES ABSOLUTE AUTO 0.8 x10-3/uL (1.0-4.4); LYMPHOCYTES PERCENT AUTO 10.3 % (18.4-52.1); MEAN CORPUSCULAR HEMOGLOBIN 28.9 pg (23.9-33.9); MEAN CORPUSCULAR HGB CONC 33.2 g/dL (31.9-34.8); MEAN CORPUSCULAR VOLUME 87.1 fL (76.7-100.5); MEAN PLATELET VOLUME 8.3 fL (7.1-12.4); MONOCYTES ABSOLUTE AUTO 1.1 x10-3/uL (0.3-1.0); MONOCYTES PERCENT AUTO 14.2 % (4.4-15.7); NEUTROPHILS ABSOLUTE AUTO 5.6 x10-3/uL (1.5-6.3); NEUTROPHILS PERCENT AUTO 75.2 % (30.8-76.2); PLATELET COUNT,PLT 241 x10(3)uL (151-488); RED BLOOD CELL COUNT 4.35 x10(6)uL (3.60-5.20); RED CELL DISTRIBUTION WIDTH 15.5 % (12.3-16.5); WHITE BLOOD CELL COUNT,WBC 7.4 x10-3/uL (3.0-10.3)
[2024-04-07 17:54] LABS: BLOOD UREA NITROGEN,BUN 22 mg/dL (7-18); BUN/CREATININE RATIO 18.3 (9-20); CALCIUM 9.7 mg/dL (8.6-10.2); CARBON DIOXIDE,CO2 27 mmol/L (21-32); CHLORIDE,CL 92 mmol/L (100-110); CREATININE 1.2 mg/dL (0.55-1.02); ESTIMATED GFR 49 mL/min (>60); GLUCOSE RANDOM 125 mg/dL (80-116); POTASSIUM,K 4.5 mmol/L (3.5-5.3); SODIUM,NA 130 mmol/L (135-145)
[2024-04-07 18:00] LABS: A/G RATIO 0.7; ALANINE AMINOTRANSFERASE,ALT 19 U/L (12-36); ALBUMIN 3.2 g/dL (3.2-4.6); ALKALINE PHOSPHATASE 100 IU/L (56-112); ASPARTATE AMNIOTRANSFERASE,AST 24 IU/L (5-25); BILIRUBIN TOTAL 0.3 mg/dL (0.1-1.3); PROTEIN TOTAL,TP 7.6 g/dL (6.0-8.0)
[2024-04-07 18:05] LABS: HEMOGLOBIN A1C 7.6 % (<5.7)
[2024-04-07 18:10] LABS: TROPONIN I 9.1 pg/mL (4.0-60.3)
[2024-04-07 18:12] LABS: BASE EXCESS VENOUS,POC -1 mmol/L (-2 - 3+); PCO2 VENOUS,POC 33 mmHg (41-51); PH VENOUS,POC 7.45 pH Units (7.32-7.43)
[2024-04-07 18:12] LABS: C-REACTIVE PROTEIN 13.47 mg/dL (<0.50)
[2024-04-07 18:16] VITALS: BP 146/84; PULSE 114
[2024-04-07] MEDS: Sodium Chloride 0.9% 1,000 ML IV SCH (18:31)
[2024-04-07] MEDS: Magnesium Sulfate/Water 2 GM in Premix Bag 1 BAG IV ONE (18:32)
[2024-04-07 20:51] LABS: BILIRUBIN,URINE NEGATIVE (NEGATIVE); GLUCOSE,URINE NORMAL (NORMAL); KETONES,URINE 15 mg/dL (NEGATIVE); LEUKOCYTE ESTERASE,URINE NEGATIVE (NEGATIVE); NITRITE,URINE POSITIVE (NEGATIVE); OCCULT BLOOD,URINE LARGE (NEGATIVE); PROTEIN,URINE 30 mg/dL (NEGATIVE); UROBILINOGEN,URINE NORMAL (NEGATIVE)
[2024-04-07 20:54] LABS: APPEARANCE,URINE SLIGHTLY CLOUDY (CLEAR); BACTERIA,URINE MANY (NS); COLOR,URINE YELLOW (YELLOW); SQUAMOUS EPITHELIAL CELLS,UR OCCASIONAL (NS,R,O)
== END 2024-04-07 22:45 | disposition home or self-care (01) ==
LOC: FB.ED 16:58
DX: R11.2 Nausea with vomiting, unspecified (principal); E83.42 Hypomagnesemia; I10 Essential (primary) hypertension; E78.00 Pure hypercholesterolemia, unspecified; J44.9 Chronic obstructive pulmonary disease, unspecified; E11.42 Type 2 diabetes mellitus with diabetic polyneuropathy; E03.9 Hypothyroidism, unspecified; E66.9 Obesity, unspecified; F17.210 Nicotine dependence, cigarettes, uncomplicated; Z79.899 Other long term (current) drug therapy; Z79.84 Long term (current) use of oral hypoglycemic drugs; Z88.5 Allergy status to narcotic agent
CPT/HCPCS: 36415; 80053; 81001; 83036; 83735; 83880; 84484; 85025; 85379; 86140; 87040; 87086; 87088; 87186; 93005; 93010; 96361; 96365; 96366; 99283; 99285-25; J3475; J7030

== ENCOUNTER 2024-04-13 19:30 | Emergency (ER) | payer MEDICARE ==
[2024-04-13] MEDS ORDERED: Sodium Chloride 0.9% 10 ML Syringe FLUSH PRN (19:50)
[2024-04-13] MEDS: Sodium Chloride 0.9% 1,000 ML IV SCH (20:04)
[2024-04-13 20:07] LABS: BLOOD UREA NITROGEN,BUN 33 mg/dL (7-18); CALCIUM 8.2 mg/dL (8.6-10.2); CARBON DIOXIDE,CO2 25 mmol/L (21-32); CHLORIDE,CL 94 mmol/L (100-110); CREATININE 1.1 mg/dL (0.55-1.02); EST CRCL DRUG DOSING (CG) 35.05 mL/min; ESTIMATED GFR 55 mL/min (>60); GLUCOSE RANDOM 356 mg/dL (80-116); POTASSIUM,K 4.5 mmol/L (3.5-5.3); SODIUM,NA 131 mmol/L (135-145)
[2024-04-13 20:13] LABS: A/G RATIO 0.6; ALANINE AMINOTRANSFERASE,ALT 14 U/L (12-36); ALBUMIN 2.5 g/dL (3.2-4.6); ALKALINE PHOSPHATASE 134 IU/L (56-112); ASPARTATE AMNIOTRANSFERASE,AST 11 IU/L (5-25); BILIRUBIN TOTAL 0.2 mg/dL (0.1-1.3); LYMPHOCYTES PERCENT AUTO 23.4 % (18.4-52.1); PROTEIN TOTAL,TP 6.8 g/dL (6.0-8.0)
[2024-04-13 20:20] LABS: BASOPHILS PERCENT AUTO 0.5 % (0.2-1.5); EOSINOPHILS PERCENT AUTO 0.6 % (0.6-8.1); HEMATOCRIT 32.8 % (34.2-48.2); LYMPHOCYTES ABSOLUTE AUTO 1.8 x10-3/uL (1.0-4.4); MEAN CORPUSCULAR HEMOGLOBIN 28.9 pg (23.9-33.9); MEAN CORPUSCULAR HGB CONC 33.4 g/dL (31.9-34.8); MEAN CORPUSCULAR VOLUME 86.4 fL (76.7-100.5); MEAN PLATELET VOLUME 8.2 fL (7.1-12.4); MONOCYTES ABSOLUTE AUTO 0.7 x10-3/uL (0.3-1.0); MONOCYTES PERCENT AUTO 9.9 % (4.4-15.7); NEUTROPHILS PERCENT AUTO 65.6 % (30.8-76.2); PLATELET COUNT,PLT 520 x10(3)uL (151-488); RED CELL DISTRIBUTION WIDTH 15.6 % (12.3-16.5); WHITE BLOOD CELL COUNT,WBC 7.6 x10-3/uL (3.0-10.3)
[2024-04-13] MEDS: Ondansetron 4 MG/2 ML SDV IVPUSH ONE (20:24)
[2024-04-13 20:45] LABS: APPEARANCE,URINE CLEAR (CLEAR); BACTERIA,URINE FEW (NS); BILIRUBIN,URINE NEGATIVE (NEGATIVE); COLOR,URINE YELLOW (YELLOW); GLUCOSE,URINE >1000 mg/dL (NORMAL); KETONES,URINE NEGATIVE (NEGATIVE); LEUKOCYTE ESTERASE,URINE SMALL (NEGATIVE); NITRITE,URINE NEGATIVE (NEGATIVE); OCCULT BLOOD,URINE MODERATE (NEGATIVE); PROTEIN,URINE 30 mg/dL (NEGATIVE); SQUAMOUS EPITHELIAL CELLS,UR RARE (NS,R,O); UROBILINOGEN,URINE NORMAL (NEGATIVE); WBC,URINE 20-30 (0-5)
[2024-04-13] MEDS: Magnesium Sulfate/Water Premix 50 ML IV ONE (21:50)
[2024-04-14 00:04] VITALS: BP 123/81; PULSE 88
== END 2024-04-14 00:04 | disposition left against medical advice (07) ==
LOC: FB.ED 19:30
DX: E86.0 Dehydration (principal); E83.42 Hypomagnesemia; E83.51 Hypocalcemia; I10 Essential (primary) hypertension; E78.00 Pure hypercholesterolemia, unspecified; J44.9 Chronic obstructive pulmonary disease, unspecified; E11.42 Type 2 diabetes mellitus with diabetic polyneuropathy; E03.9 Hypothyroidism, unspecified; E66.9 Obesity, unspecified; Z79.899 Other long term (current) drug therapy; Z79.84 Long term (current) use of oral hypoglycemic drugs; Z88.5 Allergy status to narcotic agent
CPT/HCPCS: 36415; 71045; 80053; 81001; 83735; 84484; 85025; 87086; 87088; 87186; 93005; 96361; 96365; 96366; 96375; 99284; 99285; J2405; J3475; J7030

== ENCOUNTER 2024-04-17 12:09 | Emergency (ER) | payer BC, MEDICARE, OTHER ==
[2024-04-17] MEDS ORDERED: Sodium Chloride 0.9% 10 ML Syringe FLUSH PRN (12:20)
[2024-04-17 12:25] VITALS: BP 147/72; PULSE 76
[2024-04-17] MEDS ORDERED: Glucagon,Human Recombinant 1 MG Vial IM PRN (12:32)
[2024-04-17] MEDS ORDERED: 50% Dextrose in Water 50 ML Syringe IVPUSH PRN (12:32)
[2024-04-17] MEDS ORDERED: Insulin Lispro 100 Unit/ML 3 ML KwikPen SUBCUT ONE (12:35)
[2024-04-17] MEDS: Sodium Chloride 0.9% 1,000 ML IV SCH (12:46)
[2024-04-17] MEDS: Magnesium Sulfate/Water Premix 50 ML IV ONE (12:47)
[2024-04-17] MEDS: Insulin Lispro 100 Unit/ML 3 ML KwikPen SUBCUT STA (13:41)
== END 2024-04-17 14:44 | disposition left against medical advice (07) ==
LOC: FB.ED 12:09
DX: E11.65 Type 2 diabetes mellitus with hyperglycemia (principal); E83.42 Hypomagnesemia; E87.1 Hypo-osmolality and hyponatremia; E78.00 Pure hypercholesterolemia, unspecified; I10 Essential (primary) hypertension; E03.9 Hypothyroidism, unspecified; F17.210 Nicotine dependence, cigarettes, uncomplicated; Z88.5 Allergy status to narcotic agent; Z79.899 Other long term (current) drug therapy; Z90.49 Acquired absence of other specified parts of digestive tract; Z90.710 Acquired absence of both cervix and uterus
CPT/HCPCS: 36415; 71045; 80053; 81001; 83735; 85025; 93005; 93010; 96361; 96365; 99213; 99284; 99285; J1815; J3475; J7030

== ENCOUNTER 2024-04-23 11:52 | Inpatient (IN) | payer MEDICARE ==
[2024-04-23] MEDS ORDERED: Sodium Chloride 0.9% 10 ML Syringe FLUSH PRN (11:58)
[2024-04-23 12:31] LABS: BLOOD UREA NITROGEN,BUN 17 mg/dL (7-18); BUN/CREATININE RATIO 13.1 (9-20); CALCIUM 9.4 mg/dL (8.6-10.2); CARBON DIOXIDE,CO2 26 mmol/L (21-32); CHLORIDE,CL 99 mmol/L (100-110); CREATININE 1.3 mg/dL (0.55-1.02); ESTIMATED GFR 45 mL/min (>60); GLUCOSE RANDOM 187 mg/dL (80-116); POTASSIUM,K 4.9 mmol/L (3.5-5.3); SODIUM,NA 136 mmol/L (135-145)
[2024-04-23 12:36] LABS: BASOPHILS ABSOLUTE AUTO 0.1 x10-3/uL (0.0-0.1); BASOPHILS PERCENT AUTO 1.2 % (0.2-1.5); EOSINOPHILS PERCENT AUTO 0.6 % (0.6-8.1); HEMATOCRIT 33.3 % (34.2-48.2); LYMPHOCYTES ABSOLUTE AUTO 1.9 x10-3/uL (1.0-4.4); LYMPHOCYTES PERCENT AUTO 28.3 % (18.4-52.1); MEAN CORPUSCULAR HEMOGLOBIN 28.7 pg (23.9-33.9); MEAN PLATELET VOLUME 7.5 fL (7.1-12.4); MONOCYTES ABSOLUTE AUTO 0.5 x10-3/uL (0.3-1.0); MONOCYTES PERCENT AUTO 7.2 % (4.4-15.7); NEUTROPHILS ABSOLUTE AUTO 4.2 x10-3/uL (1.5-6.3); NEUTROPHILS PERCENT AUTO 62.7 % (30.8-76.2); PLATELET COUNT,PLT 646 x10(3)uL (151-488); RED BLOOD CELL COUNT 3.83 x10(6)uL (3.60-5.20); RED CELL DISTRIBUTION WIDTH 15.8 % (12.3-16.5); WHITE BLOOD CELL COUNT,WBC 6.8 x10-3/uL (3.0-10.3)
[2024-04-23 12:37] LABS: A/G RATIO 0.8; ALANINE AMINOTRANSFERASE,ALT 9 U/L (12-36); ALBUMIN 3.2 g/dL (3.2-4.6); ALKALINE PHOSPHATASE 122 IU/L (56-112); ASPARTATE AMNIOTRANSFERASE,AST 13 IU/L (5-25); BILIRUBIN TOTAL 0.2 mg/dL (0.1-1.3); MAGNESIUM 1.5 mg/dL (1.8-2.5); PROTEIN TOTAL,TP 7.3 g/dL (6.0-8.0)
[2024-04-23] MEDS: Sodium Chloride 0.9% 1,000 ML IV SCH ×2 (12:44→16:49)
[2024-04-23 12:46] LABS: TROPONIN I 8.3 pg/mL (4.0-60.3)
[2024-04-23 12:48] LABS: ETHANOL BLOOD MEDICAL < 0.03 % (<0.03); TSH ULTRASENSITIVE 7.05 IU/mL (0.36-3.74)
[2024-04-23] MEDS: Magnesium Sulfate/Water Premix 2 GM in Premix Bag 1 BAG IV ONE (13:00)
[2024-04-23 13:23] LABS: BILIRUBIN,URINE NEGATIVE (NEGATIVE); GLUCOSE,URINE NORMAL (NORMAL); KETONES,URINE NEGATIVE (NEGATIVE); LEUKOCYTE ESTERASE,URINE MODERATE (NEGATIVE); NITRITE,URINE NEGATIVE (NEGATIVE); OCCULT BLOOD,URINE MODERATE (NEGATIVE); PROTEIN,URINE TRACE mg/dL (NEGATIVE); UROBILINOGEN,URINE NORMAL (NEGATIVE)
[2024-04-23 13:24] LABS: APPEARANCE,URINE CLEAR (CLEAR); COLOR,URINE YELLOW (YELLOW)
[2024-04-23 13:41] LABS: BACTERIA,URINE FEW (NS); RBC,URINE 0-5 (0-5); SQUAMOUS EPITHELIAL CELLS,UR RARE (NS,R,O); WBC,URINE 20-30 (0-5)
[2024-04-23] MEDS: cefTRIAXone 1 GM Vial IVPUSH SCH (15:57)
[2024-04-23] MEDS ORDERED: Benzonatate 100 MG Cap PO PRN (16:53)
[2024-04-23] MEDS ORDERED: Ondansetron 4 MG Tab.DIS PO PRN (16:53)
[2024-04-23] MEDS ORDERED: Acetaminophen 500 MG Tab PO PRN (16:53)
[2024-04-23] MEDS ORDERED: Albuterol 6.7 GM Inhaler INH PRN (16:53)
[2024-04-23] MEDS ORDERED: Atropine/Diphenoxylate 0.025-2.5 MG Tab PO PRN (16:53)
[2024-04-23] MEDS ORDERED: Glucagon,Human Recombinant 1 MG Vial IM PRN (17:00)
[2024-04-23] MEDS ORDERED: 50% Dextrose in Water 50 ML Syringe IVPUSH PRN (17:00)
[2024-04-23] MEDS ORDERED: Acetaminophen 325 MG Tab PO PRN (17:03)
[2024-04-23] MEDS ORDERED: Acetaminophen 650 MG Supp RECTAL PRN (17:03)
[2024-04-23] MEDS ORDERED: Insulin Lispro 100 Unit/ML 3 ML KwikPen SUBCUT ONE (17:48)
[2024-04-23] MEDS: Insulin Lispro 100 Unit/ML 3 ML KwikPen SUBCUT SCH (17:51)
[2024-04-23] MEDS: Formoterol/Mometasone 100-5 MCG 8.8 GM Inhaler IH SCH (20:31)
[2024-04-23] MEDS: Magnesium Oxide 400 MG Tab PO SCH (20:32)
[2024-04-23] MEDS: Mirtazapine 15 MG Tab PO SCH (20:32)
[2024-04-23] MEDS: Gabapentin 300 MG Cap PO SCH (20:32)
[2024-04-23] MEDS: Enoxaparin 40 MG/0.4 ML Syringe SUBCUT SCH (20:32)
[2024-04-23] MEDS: Propranolol 10 MG Tab PO SCH (20:53)
[2024-04-23] MEDS ORDERED: Propranolol 20 MG Tab PO SCH (21:00)
[2024-04-23] MEDS: Melatonin 3 MG Tab PO PRN (21:40)
[2024-04-24 06:31] LABS: HEMATOCRIT 28.9 % (34.2-48.2); HEMOGLOBIN 9.5 g/dL (11.4-15.5); MEAN CORPUSCULAR HEMOGLOBIN 28.6 pg (23.9-33.9); MEAN CORPUSCULAR VOLUME 86.7 fL (76.7-100.5); MEAN PLATELET VOLUME 7.5 fL (7.1-12.4); PLATELET COUNT,PLT 533 x10(3)uL (151-488); RED BLOOD CELL COUNT 3.33 x10(6)uL (3.60-5.20); RED CELL DISTRIBUTION WIDTH 15.6 % (12.3-16.5); WHITE BLOOD CELL COUNT,WBC 5.9 x10-3/uL (3.0-10.3)
[2024-04-24 06:43] LABS: A/G RATIO 0.8; ALANINE AMINOTRANSFERASE,ALT 8 U/L (12-36); ALBUMIN 2.7 g/dL (3.2-4.6); ALKALINE PHOSPHATASE 100 IU/L (56-112); ASPARTATE AMNIOTRANSFERASE,AST 14 IU/L (5-25); BILIRUBIN TOTAL 0.2 mg/dL (0.1-1.3); BLOOD UREA NITROGEN,BUN 14 mg/dL (7-18); BUN/CREATININE RATIO 12.7 (9-20); CARBON DIOXIDE,CO2 24 mmol/L (21-32); CHLORIDE,CL 104 mmol/L (100-110); CREATININE 1.1 mg/dL (0.55-1.02); EST CRCL DRUG DOSING (CG) 36.94 mL/min; ESTIMATED GFR 55 mL/min (>60); GLUCOSE RANDOM 117 mg/dL (80-116); POTASSIUM,K 4.7 mmol/L (3.5-5.3); PROTEIN TOTAL,TP 6.1 g/dL (6.0-8.0); SODIUM,NA 138 mmol/L (135-145)
[2024-04-24] MEDS: Levothyroxine 75 MCG Tab PO SCH (06:45)
[2024-04-24] MEDS: Pantoprazole 40 MG Tab.CR PO SCH (06:45)
[2024-04-24 07:12] LABS: EOSINOPHILS PERCENT MAN 1 % (0-5); LYMPHOCYTES PERCENT MAN 35 % (13-37); MONOCYTES PERCENT MAN 9 % (4-12); SEG NEUTROPHILS PERCENT MAN 55 % (46-82)
[2024-04-24] MEDS: Lisinopril 5 MG Tab PO SCH (08:04)
[2024-04-24] MEDS: Rosuvastatin 10 MG Tab PO SCH (08:04)
[2024-04-24] MEDS: Tiotropium Bromide 4 GM Inhalation Spray (2.5mcg/1 dose; 10 doses) INH SCH (08:14)
[2024-04-24] MEDS ORDERED: Non-Formulary Medication 1 Each (Fluticasone/Umeclidin/Vilanter [Trelegy Ellipta 100-62.5- IH SCH (09:00)
[2024-04-24] MEDS ORDERED: Cyanocobalamin (Vitamin B12) 1,000 MCG Tab PO SCH (09:00)
[2024-04-24] MEDS: Nicotine 21 MG/24 Hr Patch TRDERM SCH (09:22)
[2024-04-24] MEDS: buPROPion 150 MG Tab.ER PO SCH (10:25)
[2024-04-24] MEDS: Cyanocobalamin (Vitamin B12) 500 MCG Tab PO SCH (10:26)
[2024-04-24] MEDS: Venlafaxine 150 MG Cap.ER PO SCH (10:26)
[2024-04-24] MEDS ORDERED: Magnesium Chloride 64 MG Tab.ER PO SCH (21:00)
[2024-04-25 04:29] VITALS: PULSE 61
[2024-04-25] MEDS: cefTRIAXone 1 GM Vial IVPUSH SCH (08:39)
[2024-04-25 08:45] VITALS: BP 161/76
== END 2024-04-25 11:23 | disposition home or self-care (01) | DRG 690 ==
LOC: FB.ED 11:52 → FB.MS 14:43
PROVIDERS: ADMIT Emergency Medicine; ATTEND Family Medicine
DX: R53.1 Weakness (principal); N39.0 Urinary tract infection, site not specified; N30.00 Acute cystitis without hematuria; J44.1 Chronic obstructive pulmonary disease with (acute) exacerbation; I10 Essential (primary) hypertension; Z51.5 Encounter for palliative care; E11.9 Type 2 diabetes mellitus without complications; K59.09 Other constipation; E11.42 Type 2 diabetes mellitus with diabetic polyneuropathy; E66.9 Obesity, unspecified; Z88.8 Allergy status to other drugs, medicaments and biological substances; Z79.890 Hormone replacement therapy; E03.9 Hypothyroidism, unspecified; Z68.25 Body mass index [BMI] 25.0-25.9, adult; F32.A Depression, unspecified; G43.909 Migraine, unspecified, not intractable, without status migrainosus; F41.1 Generalized anxiety disorder; E78.00 Pure hypercholesterolemia, unspecified; H54.7 Unspecified visual loss; E83.42 Hypomagnesemia; I27.20 Pulmonary hypertension, unspecified; F17.210 Nicotine dependence, cigarettes, uncomplicated; Z88.5 Allergy status to narcotic agent; Z79.84 Long term (current) use of oral hypoglycemic drugs; Z90.49 Acquired absence of other specified parts of digestive tract; Z90.89 Acquired absence of other organs; Z90.710 Acquired absence of both cervix and uterus; Z90.721 Acquired absence of ovaries, unilateral; Z98.890 Other specified postprocedural states; Z79.899 Other long term (current) drug therapy; W19.XXXA Unspecified fall, initial encounter
CPT/HCPCS: 36415; 71045; 80053; 80307; 81001; 83735; 84443; 84484; 85025; 87086; 87088 ×2; 93005; 96365; 96366; 99285; J3475; J7030; U0002; 82947; 84439; 87040; 87186; 94150; 99222; 99232; 99238; A9270-GY; J0696; J1650; J1815

== ENCOUNTER 2024-05-06 18:35 | Inpatient (IN) | payer MEDICARE ==
[2024-05-06 19:17] LABS: BASOPHILS PERCENT AUTO 0.6 % (0.2-1.5); BLOOD UREA NITROGEN,BUN 38 mg/dL (7-18); CALCIUM 9.5 mg/dL (8.6-10.2); CARBON DIOXIDE,CO2 27 mmol/L (21-32); CHLORIDE,CL 98 mmol/L (100-110); CREATININE 1.9 mg/dL (0.55-1.02); EOSINOPHILS ABSOLUTE AUTO 0.1 x10-3/uL (0.0-0.8); EOSINOPHILS PERCENT AUTO 1.3 % (0.6-8.1); EST CRCL DRUG DOSING (CG) 22.41 mL/min; ESTIMATED GFR 28 mL/min (>60); GLUCOSE RANDOM 208 mg/dL (80-116); HEMATOCRIT 35.4 % (34.2-48.2); HEMOGLOBIN 11.5 g/dL (11.4-15.5); LYMPHOCYTES ABSOLUTE AUTO 2.1 x10-3/uL (1.0-4.4); MEAN CORPUSCULAR HEMOGLOBIN 28.8 pg (23.9-33.9); MEAN CORPUSCULAR HGB CONC 32.6 g/dL (31.9-34.8); MEAN CORPUSCULAR VOLUME 88.5 fL (76.7-100.5); MEAN PLATELET VOLUME 8.3 fL (7.1-12.4); MONOCYTES ABSOLUTE AUTO 0.7 x10-3/uL (0.3-1.0); MONOCYTES PERCENT AUTO 8.7 % (4.4-15.7); NEUTROPHILS ABSOLUTE AUTO 4.8 x10-3/uL (1.5-6.3); NEUTROPHILS PERCENT AUTO 62.4 % (30.8-76.2); PLATELET COUNT,PLT 347 x10(3)uL (151-488); POTASSIUM,K 5.1 mmol/L (3.5-5.3); RED CELL DISTRIBUTION WIDTH 16.1 % (12.3-16.5); SODIUM,NA 136 mmol/L (135-145); WHITE BLOOD CELL COUNT,WBC 7.7 x10-3/uL (3.0-10.3)
[2024-05-06 19:23] LABS: A/G RATIO 0.9; ALANINE AMINOTRANSFERASE,ALT 22 U/L (12-36); ALBUMIN 3.4 g/dL (3.2-4.6); ALKALINE PHOSPHATASE 135 IU/L (56-112); ASPARTATE AMNIOTRANSFERASE,AST 19 IU/L (5-25); BILIRUBIN TOTAL 0.3 mg/dL (0.1-1.3); MAGNESIUM 2.1 mg/dL (1.8-2.5); PROTEIN TOTAL,TP 7.1 g/dL (6.0-8.0)
[2024-05-06] MEDS: Sodium Chloride 0.9% 1,000 ML IV SCH ×2 (19:33→21:16)
[2024-05-06] MEDS ORDERED: Ondansetron 4 MG/2 ML SDV IV PRN (19:35)
[2024-05-06 19:43] LABS: APPEARANCE,URINE SLIGHTLY CLOUDY (CLEAR); BACTERIA,URINE MODERATE (NS); BILIRUBIN,URINE SMALL (NEGATIVE); COLOR,URINE YELLOW (YELLOW); GLUCOSE,URINE NORMAL (NORMAL); HYALINE CASTS,URINE FEW (NS); KETONES,URINE NEGATIVE (NEGATIVE); LEUKOCYTE ESTERASE,URINE LARGE (NEGATIVE); NITRITE,URINE POSITIVE (NEGATIVE); OCCULT BLOOD,URINE TRACE (NEGATIVE); PROTEIN,URINE 30 mg/dL (NEGATIVE); SQUAMOUS EPITHELIAL CELLS,UR RARE (NS,R,O); UROBILINOGEN,URINE NORMAL (NEGATIVE); WBC,URINE 30-40 (0-5)
[2024-05-06] MEDS: Sodium Chloride 0.9% 10 ML Syringe FLUSH PRN (21:15)
[2024-05-06] MEDS: Nicotine 14 MG/24 Hr Patch TRDERM SCH (21:23)
[2024-05-06] MEDS: Enoxaparin 30 MG/0.3 ML Syringe SUBCUT SCH (21:23)
[2024-05-07] MEDS: Acetaminophen 325 MG Tab PO PRN (04:46)
[2024-05-07 06:52] LABS: BASOPHILS PERCENT AUTO 0.6 % (0.2-1.5); EOSINOPHILS ABSOLUTE AUTO 0.1 x10-3/uL (0.0-0.8); EOSINOPHILS PERCENT AUTO 1.6 % (0.6-8.1); HEMATOCRIT 31.4 % (34.2-48.2); HEMOGLOBIN 10.1 g/dL (11.4-15.5); LYMPHOCYTES ABSOLUTE AUTO 2.8 x10-3/uL (1.0-4.4); LYMPHOCYTES PERCENT AUTO 41.5 % (18.4-52.1); MEAN CORPUSCULAR HEMOGLOBIN 28.8 pg (23.9-33.9); MEAN CORPUSCULAR HGB CONC 32.1 g/dL (31.9-34.8); MEAN CORPUSCULAR VOLUME 89.6 fL (76.7-100.5); MONOCYTES ABSOLUTE AUTO 0.7 x10-3/uL (0.3-1.0); MONOCYTES PERCENT AUTO 10.2 % (4.4-15.7); NEUTROPHILS ABSOLUTE AUTO 3.1 x10-3/uL (1.5-6.3); NEUTROPHILS PERCENT AUTO 46.1 % (30.8-76.2); PLATELET COUNT,PLT 285 x10(3)uL (151-488); RED BLOOD CELL COUNT 3.51 x10(6)uL (3.60-5.20); WHITE BLOOD CELL COUNT,WBC 6.6 x10-3/uL (3.0-10.3)
[2024-05-07 07:03] LABS: A/G RATIO 0.9; ALANINE AMINOTRANSFERASE,ALT 18 U/L (12-36); ALBUMIN 2.9 g/dL (3.2-4.6); ALKALINE PHOSPHATASE 114 IU/L (56-112); ASPARTATE AMNIOTRANSFERASE,AST 14 IU/L (5-25); BILIRUBIN TOTAL 0.4 mg/dL (0.1-1.3); BLOOD UREA NITROGEN,BUN 32 mg/dL (7-18); BUN/CREATININE RATIO 22.9 (9-20); CALCIUM 8.4 mg/dL (8.6-10.2); CARBON DIOXIDE,CO2 26 mmol/L (21-32); CHLORIDE,CL 104 mmol/L (100-110); CREATININE 1.4 mg/dL (0.55-1.02); EST CRCL DRUG DOSING (CG) 30.42 mL/min; ESTIMATED GFR 41 mL/min (>60); GLUCOSE RANDOM 83 mg/dL (80-116); MAGNESIUM 2.1 mg/dL (1.8-2.5); PHOSPHORUS 3.9 mg/dL (2.6-4.6); POTASSIUM,K 4.4 mmol/L (3.5-5.3); SODIUM,NA 138 mmol/L (135-145)
[2024-05-07] MEDS ORDERED: Ondansetron 4 MG Tab.DIS PO PRN (08:49)
[2024-05-07] MEDS ORDERED: Albuterol 6.7 GM Inhaler INH PRN (08:49)
[2024-05-07] MEDS ORDERED: Atropine/Diphenoxylate 0.025-2.5 MG Tab PO PRN (08:49)
[2024-05-07] MEDS ORDERED: Benzonatate 100 MG Cap PO PRN (08:49)
[2024-05-07] MEDS ORDERED: Non-Formulary Medication 1 Each (Fluticasone/Umeclidin/Vilanter [Trelegy Ellipta 100-62.5- INH SCH (09:00)
[2024-05-07] MEDS ORDERED: cefTRIAXone 1 GM in Sodium Chloride 0.9% 50 ML IV SCH (09:15)
[2024-05-07] MEDS: Rosuvastatin 10 MG Tab PO SCH (09:51)
[2024-05-07] MEDS: Propranolol 10 MG Tab PO SCH (09:51)
[2024-05-07] MEDS: Venlafaxine 150 MG Cap.ER PO SCH (09:51)
[2024-05-07] MEDS: Cyanocobalamin (Vitamin B12) 1,000 MCG Tab PO SCH (09:52)
[2024-05-07] MEDS: Pantoprazole 40 MG Tab.CR PO SCH (09:52)
[2024-05-07] MEDS: buPROPion 150 MG Tab.ER PO SCH (09:52)
[2024-05-07] MEDS: Lisinopril 5 MG Tab PO SCH (09:52)
[2024-05-07] MEDS: Magnesium Oxide 400 MG Tab PO SCH (09:52)
[2024-05-07] MEDS: Gabapentin 300 MG Cap PO SCH (09:52)
[2024-05-07] MEDS: Levothyroxine 75 MCG Tab PO SCH (09:52)
[2024-05-07] MEDS: cefTRIAXone 1 GM Vial IVPUSH SCH (09:52)
[2024-05-07] MEDS: Albuterol/Ipratropium 3.0-0.5 MG/3 ML Neb Soln INH SCH (12:21)
[2024-05-07] MEDS: Budesonide 0.5 MG/2 ML Neb Susp INH SCH (12:21)
[2024-05-07 13:27] VITALS: BP 158/69; PULSE 68
[2024-05-07] MEDS: Lactated Ringers 1,000 ML IV SCH (14:01)
[2024-05-07] MEDS: Acetaminophen 500 MG Tab PO PRN (14:54)
[2024-05-07] MEDS ORDERED: Mirtazapine 15 MG Tab PO SCH (21:00)
[2024-05-08] MEDS ORDERED: SEMAGLUTIDE 14 MG PO SCH (07:30)
== END 2024-05-07 15:00 | DRG 683 ==
LOC: FB.ED 18:35 → FB.MS 20:22 → OBSVTOIN 05-07 09:11
PROVIDERS: ADMIT Family Medicine; ATTEND Family Medicine
DX: R53.1 Weakness (principal); N17.9 Acute kidney failure, unspecified; E87.1 Hypo-osmolality and hyponatremia; N30.00 Acute cystitis without hematuria; F33.2 Major depressive disorder, recurrent severe without psychotic features; I10 Essential (primary) hypertension; K59.00 Constipation, unspecified; H54.7 Unspecified visual loss; Z66 Do not resuscitate; Z51.5 Encounter for palliative care; E11.42 Type 2 diabetes mellitus with diabetic polyneuropathy; E66.9 Obesity, unspecified; E03.9 Hypothyroidism, unspecified; M79.671 Pain in right foot; M79.672 Pain in left foot; F41.9 Anxiety disorder, unspecified; G43.909 Migraine, unspecified, not intractable, without status migrainosus; R07.89 Other chest pain; K59.09 Other constipation; E78.00 Pure hypercholesterolemia, unspecified; J44.9 Chronic obstructive pulmonary disease, unspecified; F17.210 Nicotine dependence, cigarettes, uncomplicated; Z88.5 Allergy status to narcotic agent; Z79.84 Long term (current) use of oral hypoglycemic drugs; Z90.89 Acquired absence of other organs; Z79.890 Hormone replacement therapy; Z90.710 Acquired absence of both cervix and uterus; Z90.721 Acquired absence of ovaries, unilateral; Z98.890 Other specified postprocedural states; Z79.899 Other long term (current) drug therapy
CPT/HCPCS: 36415 ×2; 80053 ×2; 81001; 83735 ×2; 84100; 84484 ×2; 85025 ×2; 87086; 87088; 93005; 94150; A9270 ×3; J1650; J3490; J7030 ×3; 71101-RT; 72100; 73562-LT; 82947; 87186; 97161-GP; J0696; J7120; J7620

== ENCOUNTER 2024-07-31 18:20 | Emergency (ER) | payer MEDICARE ==
[2024-07-31 18:43] VITALS: BP 137/71; PULSE 70
[2024-07-31] MEDS: Sodium Chloride 0.9% 1,000 ML IV SCH (19:41)
[2024-07-31 19:59] LABS: BASOPHILS ABSOLUTE AUTO 0.1 x10-3/uL (0.0-0.1); BASOPHILS PERCENT AUTO 0.7 % (0.2-1.5); EOSINOPHILS ABSOLUTE AUTO 0.1 x10-3/uL (0.0-0.8); EOSINOPHILS PERCENT AUTO 1.3 % (0.6-8.1); HEMATOCRIT 36.6 % (34.2-48.2); MEAN CORPUSCULAR HEMOGLOBIN 28.7 pg (23.9-33.9); MEAN CORPUSCULAR HGB CONC 32.9 g/dL (31.9-34.8); MEAN CORPUSCULAR VOLUME 87.5 fL (76.7-100.5); MEAN PLATELET VOLUME 7.5 fL (7.1-12.4); MONOCYTES ABSOLUTE AUTO 0.7 x10-3/uL (0.3-1.0); MONOCYTES PERCENT AUTO 8.7 % (4.4-15.7); NEUTROPHILS ABSOLUTE AUTO 4.7 x10-3/uL (1.5-6.3); NEUTROPHILS PERCENT AUTO 63.3 % (30.8-76.2); PLATELET COUNT,PLT 329 x10(3)uL (151-488); RED BLOOD CELL COUNT 4.18 x10(6)uL (3.60-5.20); RED CELL DISTRIBUTION WIDTH 14.9 % (12.3-16.5); WHITE BLOOD CELL COUNT,WBC 7.5 x10-3/uL (3.0-10.3)
[2024-07-31 20:03] LABS: BLOOD UREA NITROGEN,BUN 26 mg/dL (7-18); BUN/CREATININE RATIO 18.6 (9-20); CALCIUM 9.2 mg/dL (8.6-10.2); CARBON DIOXIDE,CO2 24 mmol/L (21-32); CHLORIDE,CL 104 mmol/L (100-110); CREATININE 1.4 mg/dL (0.55-1.02); ESTIMATED GFR 41 mL/min (>60); GLUCOSE RANDOM 198 mg/dL (80-116); POTASSIUM,K 5.2 mmol/L (3.5-5.3); SODIUM,NA 138 mmol/L (135-145)
== END 2024-07-31 21:47 | disposition home or self-care (01) ==
LOC: FB.ED 18:20
DX: R53.1 Weakness (principal); R29.6 Repeated falls; E11.22 Type 2 diabetes mellitus with diabetic chronic kidney disease; E11.42 Type 2 diabetes mellitus with diabetic polyneuropathy; I12.9 Hypertensive chronic kidney disease with stage 1 through stage 4 chronic kidney disease, or unspecified chronic kidney disease; N18.9 Chronic kidney disease, unspecified; E03.9 Hypothyroidism, unspecified; E66.9 Obesity, unspecified; J44.9 Chronic obstructive pulmonary disease, unspecified; F17.210 Nicotine dependence, cigarettes, uncomplicated; Z90.49 Acquired absence of other specified parts of digestive tract; Z90.710 Acquired absence of both cervix and uterus; Z88.5 Allergy status to narcotic agent; Z79.51 Long term (current) use of inhaled steroids; Z79.84 Long term (current) use of oral hypoglycemic drugs; Z79.890 Hormone replacement therapy; Z79.899 Other long term (current) drug therapy
CPT/HCPCS: 36415; 71045; 80048; 83735; 84484; 85025; 93005; 93010; 96360; 99284; 99285-25; J7030

== ENCOUNTER 2024-10-12 18:45 | Inpatient (IN) | payer MEDICARE ==
[2024-10-12 19:38] LABS: BASOPHILS PERCENT AUTO 0.6 % (0.2-1.5); EOSINOPHILS ABSOLUTE AUTO 0.1 x10-3/uL (0.0-0.8); EOSINOPHILS PERCENT AUTO 1.6 % (0.6-8.1); HEMATOCRIT 33.6 % (34.2-48.2); HEMOGLOBIN 10.8 g/dL (11.4-15.5); LYMPHOCYTES ABSOLUTE AUTO 1.9 x10-3/uL (1.0-4.4); LYMPHOCYTES PERCENT AUTO 31.7 % (18.4-52.1); MEAN CORPUSCULAR HEMOGLOBIN 29.3 pg (23.9-33.9); MEAN CORPUSCULAR HGB CONC 32.2 g/dL (31.9-34.8); MEAN CORPUSCULAR VOLUME 90.9 fL (76.7-100.5); MEAN PLATELET VOLUME 8.5 fL (7.1-12.4); MONOCYTES ABSOLUTE AUTO 0.6 x10-3/uL (0.3-1.0); MONOCYTES PERCENT AUTO 10.1 % (4.4-15.7); NEUTROPHILS ABSOLUTE AUTO 3.4 x10-3/uL (1.5-6.3); PLATELET COUNT,PLT 323 x10(3)uL (151-488); RED BLOOD CELL COUNT 3.69 x10(6)uL (3.60-5.20); RED CELL DISTRIBUTION WIDTH 14.8 % (12.3-16.5); WHITE BLOOD CELL COUNT,WBC 6.1 x10-3/uL (3.0-10.3)
[2024-10-12] MEDS: Sodium Chloride 0.9% 1,000 ML IV SCH (19:41)
[2024-10-12 19:52] LABS: A/G RATIO 1.1; ALANINE AMINOTRANSFERASE,ALT 49 U/L (12-36); ALBUMIN 3.8 g/dL (3.2-4.6); ALKALINE PHOSPHATASE 129 IU/L (56-112); ASPARTATE AMNIOTRANSFERASE,AST 24 IU/L (5-25); BILIRUBIN TOTAL 0.4 mg/dL (0.1-1.3); BLOOD UREA NITROGEN,BUN 58 mg/dL (7-18); BUN/CREATININE RATIO 25.2 (9-20); CARBON DIOXIDE,CO2 21 mmol/L (21-32); CHLORIDE,CL 103 mmol/L (100-110); ESTIMATED GFR 23 mL/min (>60); GLUCOSE RANDOM 172 mg/dL (80-116); MAGNESIUM 2.8 mg/dL (1.8-2.5); POTASSIUM,K 5.1 mmol/L (3.5-5.3); PROTEIN TOTAL,TP 7.4 g/dL (6.0-8.0); SODIUM,NA 135 mmol/L (135-145)
[2024-10-12 19:59] LABS: C-REACTIVE PROTEIN 1.8 mg/dL (<0.50)
[2024-10-12 20:04] LABS: CREATININE 2.3 mg/dL (0.55-1.02)
[2024-10-12 21:22] LABS: BILIRUBIN,URINE NEGATIVE (NEGATIVE); GLUCOSE,URINE NORMAL (NORMAL); KETONES,URINE NEGATIVE (NEGATIVE); LEUKOCYTE ESTERASE,URINE MODERATE (NEGATIVE); NITRITE,URINE NEGATIVE (NEGATIVE); OCCULT BLOOD,URINE NEGATIVE (NEGATIVE); PROTEIN,URINE NEGATIVE (NEGATIVE); UROBILINOGEN,URINE NORMAL (NEGATIVE)
[2024-10-12 21:30] LABS: APPEARANCE,URINE CLEAR (CLEAR); BACTERIA,URINE FEW (NS); COLOR,URINE YELLOW (YELLOW); RBC,URINE 0-5 (0-5); SQUAMOUS EPITHELIAL CELLS,UR FEW (NS,R,O)
[2024-10-12] MEDS ORDERED: Ondansetron 4 MG/2 ML SDV IV PRN (22:54)
[2024-10-12] MEDS ORDERED: 50% Dextrose in Water 50 ML Syringe IVPUSH PRN (22:59)
[2024-10-12] MEDS ORDERED: Glucagon,Human Recombinant 1 MG Vial IM PRN (22:59)
[2024-10-12] MEDS ORDERED: Benzonatate 100 MG Cap PO PRN (23:31)
[2024-10-12] MEDS ORDERED: Non-Formulary Medication 1 Each (Fluticasone/Umeclidin/Vilanter [Trelegy Ellipta 100-62.5- INH PRN (23:31)
[2024-10-12] MEDS ORDERED: Albuterol 6.7 GM Inhaler INH PRN (23:31)
[2024-10-12] MEDS: Pantoprazole 40 MG Vial IVPUSH SCH (23:41)
[2024-10-12] MEDS: Sodium Chloride 0.9% 10 ML Syringe FLUSH PRN (23:43)
[2024-10-12] MEDS: cefTRIAXone 1 GM Vial IVPUSH SCH (23:44)
[2024-10-13] MEDS: Sodium Chloride 0.9% 1,000 ML IV SCH (00:27)
[2024-10-13] MEDS: Azithromycin 500 MG in Sodium Chloride 0.9% 250 ML IV SCH (00:44)
[2024-10-13] MEDS: Enoxaparin 30 MG/0.3 ML Syringe SUBCUT SCH (00:46)
[2024-10-13] MEDS ORDERED: Atropine/Diphenoxylate 0.025-2.5 MG Tab PO PRN ×2 (02:38→07:03)
[2024-10-13] MEDS: Atropine/Diphenoxylate 0.025-2.5 MG Tab ONE (02:43)
[2024-10-13 06:09] LABS: BASOPHILS PERCENT AUTO 0.7 % (0.2-1.5); EOSINOPHILS ABSOLUTE AUTO 0.1 x10-3/uL (0.0-0.8); EOSINOPHILS PERCENT AUTO 1.3 % (0.6-8.1); HEMATOCRIT 32.4 % (34.2-48.2); HEMOGLOBIN 10.6 g/dL (11.4-15.5); LYMPHOCYTES ABSOLUTE AUTO 2.2 x10-3/uL (1.0-4.4); LYMPHOCYTES PERCENT AUTO 40.8 % (18.4-52.1); MEAN CORPUSCULAR HEMOGLOBIN 29.9 pg (23.9-33.9); MEAN CORPUSCULAR HGB CONC 32.6 g/dL (31.9-34.8); MEAN CORPUSCULAR VOLUME 91.8 fL (76.7-100.5); MEAN PLATELET VOLUME 8.4 fL (7.1-12.4); MONOCYTES ABSOLUTE AUTO 0.6 x10-3/uL (0.3-1.0); MONOCYTES PERCENT AUTO 11.1 % (4.4-15.7); NEUTROPHILS ABSOLUTE AUTO 2.5 x10-3/uL (1.5-6.3); NEUTROPHILS PERCENT AUTO 46.1 % (30.8-76.2); PLATELET COUNT,PLT 285 x10(3)uL (151-488); RED BLOOD CELL COUNT 3.53 x10(6)uL (3.60-5.20); RED CELL DISTRIBUTION WIDTH 14.9 % (12.3-16.5); WHITE BLOOD CELL COUNT,WBC 5.5 x10-3/uL (3.0-10.3)
[2024-10-13 06:24] LABS: BLOOD UREA NITROGEN,BUN 53 mg/dL (7-18); BUN/CREATININE RATIO 29.4 (9-20); CALCIUM 8.6 mg/dL (8.6-10.2); CARBON DIOXIDE,CO2 21 mmol/L (21-32); CHLORIDE,CL 108 mmol/L (100-110); CREATININE 1.8 mg/dL (0.55-1.02); EST CRCL DRUG DOSING (CG) 22.57 mL/min; ESTIMATED GFR 30 mL/min (>60); GLUCOSE RANDOM 137 mg/dL (80-116); POTASSIUM,K 4.6 mmol/L (3.5-5.3); SODIUM,NA 139 mmol/L (135-145)
[2024-10-13] MEDS: Levothyroxine 75 MCG Tab PO SCH (06:35)
[2024-10-13] MEDS: Albuterol/Ipratropium 3.0-0.5 MG/3 ML Neb Soln NEB SCH (06:35)
[2024-10-13] MEDS: Rosuvastatin 10 MG Tab PO SCH (09:46)
[2024-10-13] MEDS: Venlafaxine 150 MG Cap.ER PO SCH (09:46)
[2024-10-13] MEDS: amLODIPine 5 MG Tab PO SCH (09:47)
[2024-10-13] MEDS: Propranolol 10 MG Tab PO SCH (09:47)
[2024-10-13] MEDS: Gabapentin 300 MG Cap PO SCH (09:47)
[2024-10-13] MEDS: Cyanocobalamin (Vitamin B12) 1,000 MCG Tab PO SCH (09:48)
[2024-10-13] MEDS: Lisinopril 5 MG Tab PO SCH (09:48)
[2024-10-13] MEDS: buPROPion 150 MG Tab.ER PO SCH (09:48)
[2024-10-13] MEDS ORDERED: Albuterol/Ipratropium 3.0-0.5 MG/3 ML Neb Soln NEB PRN (11:34)
[2024-10-13] MEDS: Insulin Lispro 100 Unit/ML 3 ML KwikPen SUBCUT SCH (11:57)
[2024-10-13] MEDS: Mirtazapine 15 MG Tab PO SCH (20:25)
[2024-10-13] MEDS: Insulin Lispro 100 Unit/ML 3 ML KwikPen SUBCUT ONE (20:28)
[2024-10-13] MEDS: Acetaminophen 325 MG Tab PO PRN (23:10)
[2024-10-13] MEDS: SEMAGLUTIDE 14 MG PO SCH (23:38)
[2024-10-13] MEDS: glipiZIDE 5 MG Tab PO SCH (23:38)
[2024-10-13] MEDS: Insulin Regular, Human 100 Units/ML 10 ML Vial SUBCUT SCH (23:38)
[2024-10-13] MEDS: Non-Formulary Medication 1 Each (Metformin Hcl [Metformin Er Osmotic] 500 MG Tab.Er.24) PO SCH (23:39)
[2024-10-14] MEDS: Melatonin 3 MG Tab PO PRN (00:43)
[2024-10-14] MEDS: hydrOXYzine HCl 25 MG Tab PO PRN (02:41)
[2024-10-14] MEDS: Levothyroxine 75 MCG Tab PO SCH (05:43)
[2024-10-14 06:51] LABS: BASOPHILS PERCENT AUTO 0.2 % (0.2-1.5); EOSINOPHILS ABSOLUTE AUTO 0.1 x10-3/uL (0.0-0.8); EOSINOPHILS PERCENT AUTO 1.5 % (0.6-8.1); HEMATOCRIT 28.9 % (34.2-48.2); HEMOGLOBIN 9.4 g/dL (11.4-15.5); LYMPHOCYTES PERCENT AUTO 42.9 % (18.4-52.1); MEAN CORPUSCULAR HEMOGLOBIN 30.2 pg (23.9-33.9); MEAN CORPUSCULAR HGB CONC 32.5 g/dL (31.9-34.8); MEAN PLATELET VOLUME 8.1 fL (7.1-12.4); MONOCYTES ABSOLUTE AUTO 0.5 x10-3/uL (0.3-1.0); MONOCYTES PERCENT AUTO 10.8 % (4.4-15.7); NEUTROPHILS ABSOLUTE AUTO 2.1 x10-3/uL (1.5-6.3); NEUTROPHILS PERCENT AUTO 44.6 % (30.8-76.2); PLATELET COUNT,PLT 253 x10(3)uL (151-488); RED BLOOD CELL COUNT 3.11 x10(6)uL (3.60-5.20); RED CELL DISTRIBUTION WIDTH 14.5 % (12.3-16.5); WHITE BLOOD CELL COUNT,WBC 4.6 x10-3/uL (3.0-10.3)
[2024-10-14 07:02] LABS: A/G RATIO 0.9; ALANINE AMINOTRANSFERASE,ALT 25 U/L (12-36); ALBUMIN 2.8 g/dL (3.2-4.6); ALKALINE PHOSPHATASE 97 IU/L (56-112); ASPARTATE AMNIOTRANSFERASE,AST 13 IU/L (5-25); BILIRUBIN TOTAL 0.2 mg/dL (0.1-1.3); BLOOD UREA NITROGEN,BUN 31 mg/dL (7-18); BUN/CREATININE RATIO 22.1 (9-20); CALCIUM 8.5 mg/dL (8.6-10.2); CARBON DIOXIDE,CO2 23 mmol/L (21-32); CHLORIDE,CL 110 mmol/L (100-110); CREATININE 1.4 mg/dL (0.55-1.02); EST CRCL DRUG DOSING (CG) 29.02 mL/min; ESTIMATED GFR 41 mL/min (>60); GLUCOSE RANDOM 97 mg/dL (80-116); POTASSIUM,K 5.2 mmol/L (3.5-5.3); PROTEIN TOTAL,TP 5.9 g/dL (6.0-8.0); SODIUM,NA 140 mmol/L (135-145)
[2024-10-14] MEDS: Azithromycin 500 MG Tab PO SCH (20:28)
[2024-10-14] MEDS: Pantoprazole 40 MG Tab.CR PO SCH (20:29)
[2024-10-15 06:43] LABS: BASOPHILS PERCENT AUTO 0.2 % (0.2-1.5); EOSINOPHILS ABSOLUTE AUTO 0.1 x10-3/uL (0.0-0.8); EOSINOPHILS PERCENT AUTO 1.5 % (0.6-8.1); HEMATOCRIT 31.7 % (34.2-48.2); HEMOGLOBIN 10.5 g/dL (11.4-15.5); LYMPHOCYTES ABSOLUTE AUTO 2.2 x10-3/uL (1.0-4.4); LYMPHOCYTES PERCENT AUTO 44.4 % (18.4-52.1); MEAN CORPUSCULAR HEMOGLOBIN 30.6 pg (23.9-33.9); MEAN CORPUSCULAR HGB CONC 33.2 g/dL (31.9-34.8); MEAN CORPUSCULAR VOLUME 92.1 fL (76.7-100.5); MONOCYTES ABSOLUTE AUTO 0.5 x10-3/uL (0.3-1.0); MONOCYTES PERCENT AUTO 9.6 % (4.4-15.7); NEUTROPHILS ABSOLUTE AUTO 2.2 x10-3/uL (1.5-6.3); NEUTROPHILS PERCENT AUTO 44.3 % (30.8-76.2); PLATELET COUNT,PLT 263 x10(3)uL (151-488); RED BLOOD CELL COUNT 3.44 x10(6)uL (3.60-5.20); RED CELL DISTRIBUTION WIDTH 14.6 % (12.3-16.5); WHITE BLOOD CELL COUNT,WBC 5.1 x10-3/uL (3.0-10.3)
[2024-10-15] MEDS: Sulfamethoxazole/Trimethoprim 800-160 MG Tab PO ONE (08:18)
[2024-10-15 08:27] LABS: ALANINE AMINOTRANSFERASE,ALT 31 U/L (12-36); ALKALINE PHOSPHATASE 95 IU/L (56-112); ASPARTATE AMNIOTRANSFERASE,AST 14 IU/L (5-25); BILIRUBIN TOTAL 0.2 mg/dL (0.1-1.3); BLOOD UREA NITROGEN,BUN 20 mg/dL (7-18); CALCIUM 9.2 mg/dL (8.6-10.2); CARBON DIOXIDE,CO2 23 mmol/L (21-32); CHLORIDE,CL 108 mmol/L (100-110); EST CRCL DRUG DOSING (CG) 40.63 mL/min; ESTIMATED GFR 61 mL/min (>60); GLUCOSE RANDOM 102 mg/dL (80-116); POTASSIUM,K 4.8 mmol/L (3.5-5.3); SODIUM,NA 140 mmol/L (135-145)
[2024-10-15 08:38] LABS: A/G RATIO 0.9; ALBUMIN 3.2 g/dL (3.2-4.6); PROTEIN TOTAL,TP 6.7 g/dL (6.0-8.0)
[2024-10-15 15:32] LABS: STREPTOCOCCUS PNEUMONIAE AG,UR Negative (Negative)
[2024-10-15] MEDS: Levofloxacin 750 MG Tab PO SCH (20:41)
[2024-10-15] MEDS ORDERED: Sulfamethoxazole/Trimethoprim 400-80 MG Tab PO SCH (21:00)
[2024-10-15 23:29] LABS: LEGIONELLA PNEUMOPHILA AG,URN Negative (Negative)
[2024-10-16 06:42] LABS: BASOPHILS PERCENT AUTO 0.3 % (0.2-1.5); EOSINOPHILS ABSOLUTE AUTO 0.1 x10-3/uL (0.0-0.8); EOSINOPHILS PERCENT AUTO 1.8 % (0.6-8.1); HEMATOCRIT 31.4 % (34.2-48.2); HEMOGLOBIN 10.3 g/dL (11.4-15.5); LYMPHOCYTES ABSOLUTE AUTO 2.3 x10-3/uL (1.0-4.4); LYMPHOCYTES PERCENT AUTO 43.1 % (18.4-52.1); MEAN CORPUSCULAR HEMOGLOBIN 30.4 pg (23.9-33.9); MEAN CORPUSCULAR HGB CONC 32.7 g/dL (31.9-34.8); MEAN CORPUSCULAR VOLUME 92.9 fL (76.7-100.5); MEAN PLATELET VOLUME 7.8 fL (7.1-12.4); MONOCYTES ABSOLUTE AUTO 0.6 x10-3/uL (0.3-1.0); MONOCYTES PERCENT AUTO 10.4 % (4.4-15.7); NEUTROPHILS ABSOLUTE AUTO 2.4 x10-3/uL (1.5-6.3); NEUTROPHILS PERCENT AUTO 44.5 % (30.8-76.2); PLATELET COUNT,PLT 253 x10(3)uL (151-488); RED BLOOD CELL COUNT 3.38 x10(6)uL (3.60-5.20); RED CELL DISTRIBUTION WIDTH 14.5 % (12.3-16.5); WHITE BLOOD CELL COUNT,WBC 5.3 x10-3/uL (3.0-10.3)
[2024-10-16 06:50] LABS: A/G RATIO 0.9; ALANINE AMINOTRANSFERASE,ALT 33 U/L (12-36); ALKALINE PHOSPHATASE 93 IU/L (56-112); ASPARTATE AMNIOTRANSFERASE,AST 22 IU/L (5-25); BILIRUBIN TOTAL 0.2 mg/dL (0.1-1.3); BLOOD UREA NITROGEN,BUN 22 mg/dL (7-18); BUN/CREATININE RATIO 16.9 (9-20); CALCIUM 8.8 mg/dL (8.6-10.2); CARBON DIOXIDE,CO2 22 mmol/L (21-32); CHLORIDE,CL 105 mmol/L (100-110); CREATININE 1.3 mg/dL (0.55-1.02); EST CRCL DRUG DOSING (CG) 31.25 mL/min; ESTIMATED GFR 45 mL/min (>60); GLUCOSE RANDOM 197 mg/dL (80-116); POTASSIUM,K 4.9 mmol/L (3.5-5.3); PROTEIN TOTAL,TP 6.3 g/dL (6.0-8.0); SODIUM,NA 139 mmol/L (135-145)
[2024-10-16 14:05] VITALS: PULSE 64
[2024-10-16 16:46] VITALS: BP 150/73
== END 2024-10-16 11:42 | disposition home health service (06) | DRG 682 ==
LOC: FB.ED 18:45 → FB.MS 22:11
PROVIDERS: ADMIT Emergency Medicine; ATTEND Family Medicine
DX: N17.9 Acute kidney failure, unspecified (principal); J18.9 Pneumonia, unspecified organism; N39.0 Urinary tract infection, site not specified; J44.0 Chronic obstructive pulmonary disease with (acute) lower respiratory infection; R53.1 Weakness; R26.9 Unspecified abnormalities of gait and mobility; I10 Essential (primary) hypertension; J44.1 Chronic obstructive pulmonary disease with (acute) exacerbation; J44.9 Chronic obstructive pulmonary disease, unspecified; R29.6 Repeated falls; R62.7 Adult failure to thrive; H54.7 Unspecified visual loss; F17.200 Nicotine dependence, unspecified, uncomplicated; R06.9 Unspecified abnormalities of breathing; E78.00 Pure hypercholesterolemia, unspecified; K59.09 Other constipation; Z88.5 Allergy status to narcotic agent; Z79.51 Long term (current) use of inhaled steroids; Z79.890 Hormone replacement therapy; E11.42 Type 2 diabetes mellitus with diabetic polyneuropathy; F32.A Depression, unspecified; E03.9 Hypothyroidism, unspecified; E66.9 Obesity, unspecified; S92.502A Displaced unspecified fracture of left lesser toe(s), initial encounter for closed fracture; F17.210 Nicotine dependence, cigarettes, uncomplicated; F15.90 Other stimulant use, unspecified, uncomplicated; F41.1 Generalized anxiety disorder; Z66 Do not resuscitate; E86.0 Dehydration; N18.2 Chronic kidney disease, stage 2 (mild); E11.22 Type 2 diabetes mellitus with diabetic chronic kidney disease; I12.9 Hypertensive chronic kidney disease with stage 1 through stage 4 chronic kidney disease, or unspecified chronic kidney disease; Z68.27 Body mass index [BMI] 27.0-27.9, adult; Z79.84 Long term (current) use of oral hypoglycemic drugs; Z88.8 Allergy status to other drugs, medicaments and biological substances; Z79.899 Other long term (current) drug therapy; Z90.49 Acquired absence of other specified parts of digestive tract; Z90.710 Acquired absence of both cervix and uterus; Z98.891 History of uterine scar from previous surgery; Z98.890 Other specified postprocedural states; Z79.02 Long term (current) use of antithrombotics/antiplatelets
CPT/HCPCS: 36415; 70450; 71045; 73630-LT; 80048; 80053; 81001; 82947; 83605; 83735; 83880; 84484; 85025; 86140; 87040; 87086; 87088; 87186; 87428-QW; 87449; 87899; 93005; 93010; 94150; 94640; 96360; 97161-GP; 97165-GO; 99222; 99232; 99238; 99285; 99285-25; A9270-GY; J0456; J0696; J1650; J1815; J2470; J7030; J7050

== ENCOUNTER 2024-10-29 10:15 | Emergency (ER) | payer MEDICARE ==
[2024-10-29] MEDS ORDERED: Sodium Chloride 0.9% 10 ML Syringe FLUSH PRN (10:45)
[2024-10-29] MEDS: Sodium Chloride 0.9% 1,000 ML IV ONE (11:01)
[2024-10-29 11:21] LABS: BASOPHILS PERCENT AUTO 0.4 % (0.2-1.5); EOSINOPHILS ABSOLUTE AUTO 0.1 x10-3/uL (0.0-0.8); HEMATOCRIT 32.5 % (34.2-48.2); HEMOGLOBIN 10.9 g/dL (11.4-15.5); LYMPHOCYTES PERCENT AUTO 37.8 % (18.4-52.1); MEAN CORPUSCULAR HGB CONC 33.4 g/dL (31.9-34.8); MEAN CORPUSCULAR VOLUME 89.9 fL (76.7-100.5); MEAN PLATELET VOLUME 7.1 fL (7.1-12.4); MONOCYTES ABSOLUTE AUTO 0.5 x10-3/uL (0.3-1.0); MONOCYTES PERCENT AUTO 9.2 % (4.4-15.7); NEUTROPHILS ABSOLUTE AUTO 2.7 x10-3/uL (1.5-6.3); NEUTROPHILS PERCENT AUTO 50.6 % (30.8-76.2); PLATELET COUNT,PLT 297 x10(3)uL (151-488); RED BLOOD CELL COUNT 3.62 x10(6)uL (3.60-5.20); RED CELL DISTRIBUTION WIDTH 14.2 % (12.3-16.5); WHITE BLOOD CELL COUNT,WBC 5.4 x10-3/uL (3.0-10.3)
[2024-10-29 11:29] LABS: BLOOD UREA NITROGEN,BUN 29 mg/dL (7-18); BUN/CREATININE RATIO 16.1 (9-20); CALCIUM 8.5 mg/dL (8.6-10.2); CARBON DIOXIDE,CO2 26 mmol/L (21-32); CHLORIDE,CL 107 mmol/L (100-110); CREATININE 1.8 mg/dL (0.55-1.02); EST CRCL DRUG DOSING (CG) 22.57 mL/min; ESTIMATED GFR 30 mL/min (>60); GLUCOSE RANDOM 104 mg/dL (80-116); POTASSIUM,K 5.1 mmol/L (3.5-5.3); SODIUM,NA 141 mmol/L (135-145)
[2024-10-29 11:35] LABS: ALANINE AMINOTRANSFERASE,ALT 20 U/L (12-36); ALBUMIN 3.2 g/dL (3.2-4.6); ALKALINE PHOSPHATASE 101 IU/L (56-112); ASPARTATE AMNIOTRANSFERASE,AST 18 IU/L (5-25); BILIRUBIN TOTAL 0.2 mg/dL (0.1-1.3); PROTEIN TOTAL,TP 6.3 g/dL (6.0-8.0)
[2024-10-29 12:34] LABS: BLOOD UREA NITROGEN,BUN 29 mg/dL (7-18); BUN/CREATININE RATIO 17.1 (9-20); CALCIUM 8.7 mg/dL (8.6-10.2); CARBON DIOXIDE,CO2 27 mmol/L (21-32); CHLORIDE,CL 108 mmol/L (100-110); CREATININE 1.7 mg/dL (0.55-1.02); ESTIMATED GFR 32 mL/min (>60); GLUCOSE RANDOM 74 mg/dL (80-116); POTASSIUM,K 5.8 mmol/L (3.5-5.3); SODIUM,NA 141 mmol/L (135-145)
[2024-10-29 13:25] VITALS: BP 124/72; PULSE 62
== END 2024-10-29 13:23 | disposition home or self-care (01) ==
LOC: FB.ED 10:15
DX: E87.5 Hyperkalemia (principal); N18.32 Chronic kidney disease, stage 3b; I10 Essential (primary) hypertension; J44.9 Chronic obstructive pulmonary disease, unspecified; E11.9 Type 2 diabetes mellitus without complications; E03.9 Hypothyroidism, unspecified; E78.00 Pure hypercholesterolemia, unspecified; F17.210 Nicotine dependence, cigarettes, uncomplicated; Z79.890 Hormone replacement therapy; Z88.5 Allergy status to narcotic agent; Z79.899 Other long term (current) drug therapy; Z79.51 Long term (current) use of inhaled steroids; Z79.84 Long term (current) use of oral hypoglycemic drugs
CPT/HCPCS: 36415; 80048; 80053; 83735; 85025; 86140; 93005; 93010; 96360; 99284; 99285; J7030

== ENCOUNTER 2025-01-04 10:20 | Emergency (ER) | payer MEDICARE ==
[2025-01-04] MEDS: Ondansetron 4 MG/2 ML SDV IVPUSH ONE (10:53)
[2025-01-04] MEDS: Sodium Chloride 0.9% 1,000 ML IV ONE (10:53)
[2025-01-04 10:54] LABS: BASOPHILS ABSOLUTE AUTO 0.1 x10-3/uL (0.0-0.1); EOSINOPHILS ABSOLUTE AUTO 0.1 x10-3/uL (0.0-0.8); EOSINOPHILS PERCENT AUTO 1.6 % (0.6-8.1); HEMATOCRIT 38.8 % (34.2-48.2); HEMOGLOBIN 13.3 g/dL (11.4-15.5); LYMPHOCYTES ABSOLUTE AUTO 2.8 x10-3/uL (1.0-4.4); LYMPHOCYTES PERCENT AUTO 40.5 % (18.4-52.1); MEAN CORPUSCULAR HEMOGLOBIN 29.6 pg (23.9-33.9); MEAN CORPUSCULAR HGB CONC 34.2 g/dL (31.9-34.8); MEAN CORPUSCULAR VOLUME 86.4 fL (76.7-100.5); MEAN PLATELET VOLUME 7.7 fL (7.1-12.4); MONOCYTES ABSOLUTE AUTO 0.5 x10-3/uL (0.3-1.0); MONOCYTES PERCENT AUTO 7.6 % (4.4-15.7); NEUTROPHILS ABSOLUTE AUTO 3.5 x10-3/uL (1.5-6.3); NEUTROPHILS PERCENT AUTO 49.3 % (30.8-76.2); PLATELET COUNT,PLT 354 x10(3)uL (151-488); RED BLOOD CELL COUNT 4.49 x10(6)uL (3.60-5.20); RED CELL DISTRIBUTION WIDTH 14.1 % (12.3-16.5)
[2025-01-04 10:58] LABS: BLOOD UREA NITROGEN,BUN 28 mg/dL (7-18); CALCIUM 9.7 mg/dL (8.6-10.2); CARBON DIOXIDE,CO2 25 mmol/L (21-32); CHLORIDE,CL 101 mmol/L (100-110); CREATININE 1.4 mg/dL (0.55-1.02); EST CRCL DRUG DOSING (CG) 27.24 mL/min; ESTIMATED GFR 41 mL/min (>60); GLUCOSE RANDOM 226 mg/dL (80-116); SODIUM,NA 135 mmol/L (135-145)
[2025-01-04 11:02] LABS: A/G RATIO 0.9; ALANINE AMINOTRANSFERASE,ALT 28 U/L (12-36); ALBUMIN 3.8 g/dL (3.2-4.6); ALKALINE PHOSPHATASE 155 IU/L (56-112); ASPARTATE AMNIOTRANSFERASE,AST 24 IU/L (5-25); BILIRUBIN TOTAL 0.3 mg/dL (0.1-1.3); PROTEIN TOTAL,TP 7.9 g/dL (6.0-8.0)
[2025-01-04 11:04] LABS: TROPONIN I 6.3 pg/mL (4.0-60.3)
[2025-01-04 11:56] VITALS: BP 137/65; PULSE 63
[2025-01-04 12:00] LABS: BILIRUBIN,URINE NEGATIVE (NEGATIVE); GLUCOSE,URINE NORMAL (NORMAL); KETONES,URINE NEGATIVE (NEGATIVE); LEUKOCYTE ESTERASE,URINE NEGATIVE (NEGATIVE); NITRITE,URINE NEGATIVE (NEGATIVE); OCCULT BLOOD,URINE NEGATIVE (NEGATIVE); PROTEIN,URINE 30 mg/dL (NEGATIVE); UROBILINOGEN,URINE NORMAL (NEGATIVE)
[2025-01-04 12:01] LABS: APPEARANCE,URINE CLEAR (CLEAR); COLOR,URINE YELLOW (YELLOW)
[2025-01-04 12:05] LABS: BACTERIA,URINE FEW (NS); FINE GRANULAR CASTS,URINE OCCASIONAL (NS); RBC,URINE 0-5 (0-5); SQUAMOUS EPITHELIAL CELLS,UR FEW (NS,R,O); WBC,URINE 0-5 (0-5)
== END 2025-01-04 11:50 | disposition home or self-care (01) ==
LOC: FB.ED 10:20
DX: R53.1 Weakness (principal); R11.2 Nausea with vomiting, unspecified; I10 Essential (primary) hypertension; E78.00 Pure hypercholesterolemia, unspecified; J44.9 Chronic obstructive pulmonary disease, unspecified; E11.9 Type 2 diabetes mellitus without complications; E03.9 Hypothyroidism, unspecified; E66.9 Obesity, unspecified; Z68.28 Body mass index [BMI] 28.0-28.9, adult; Z90.49 Acquired absence of other specified parts of digestive tract; Z90.710 Acquired absence of both cervix and uterus; Z79.899 Other long term (current) drug therapy; Z79.84 Long term (current) use of oral hypoglycemic drugs; Z79.890 Hormone replacement therapy; Z88.5 Allergy status to narcotic agent
CPT/HCPCS: 36415; 80053; 81001; 83690; 84484; 85025; 93005; 96361; 96374; 99285-25; J2405; J7030

== ENCOUNTER 2025-01-17 23:45 | Emergency (ER) | payer MEDICARE ==
[2025-01-18] MEDS ORDERED: Sodium Chloride 0.9% 10 ML Syringe FLUSH PRN (00:19)
[2025-01-18 00:37] LABS: BASOPHILS ABSOLUTE AUTO 0.1 x10-3/uL (0.0-0.1); BASOPHILS PERCENT AUTO 0.6 % (0.2-1.5); EOSINOPHILS ABSOLUTE AUTO 0.1 x10-3/uL (0.0-0.8); EOSINOPHILS PERCENT AUTO 0.9 % (0.6-8.1); HEMATOCRIT 39.3 % (34.2-48.2); HEMOGLOBIN 13.1 g/dL (11.4-15.5); LYMPHOCYTES ABSOLUTE AUTO 2.2 x10-3/uL (1.0-4.4); LYMPHOCYTES PERCENT AUTO 24.8 % (18.4-52.1); MEAN CORPUSCULAR HEMOGLOBIN 28.9 pg (23.9-33.9); MEAN CORPUSCULAR HGB CONC 33.3 g/dL (31.9-34.8); MEAN CORPUSCULAR VOLUME 86.7 fL (76.7-100.5); MEAN PLATELET VOLUME 7.6 fL (7.1-12.4); MONOCYTES ABSOLUTE AUTO 0.7 x10-3/uL (0.3-1.0); MONOCYTES PERCENT AUTO 8.1 % (4.4-15.7); NEUTROPHILS ABSOLUTE AUTO 5.7 x10-3/uL (1.5-6.3); NEUTROPHILS PERCENT AUTO 65.6 % (30.8-76.2); PLATELET COUNT,PLT 338 x10(3)uL (151-488); RED BLOOD CELL COUNT 4.53 x10(6)uL (3.60-5.20); RED CELL DISTRIBUTION WIDTH 14.2 % (12.3-16.5); WHITE BLOOD CELL COUNT,WBC 8.8 x10-3/uL (3.0-10.3)
[2025-01-18 00:42] LABS: BLOOD UREA NITROGEN,BUN 41 mg/dL (7-18); BUN/CREATININE RATIO 25.6 (9-20); CALCIUM 9.8 mg/dL (8.6-10.2); CARBON DIOXIDE,CO2 23 mmol/L (21-32); CHLORIDE,CL 98 mmol/L (100-110); CREATININE 1.6 mg/dL (0.55-1.02); EST CRCL DRUG DOSING (CG) 23.84 mL/min; ESTIMATED GFR 35 mL/min (>60); GLUCOSE RANDOM 195 mg/dL (80-116); SODIUM,NA 131 mmol/L (135-145)
[2025-01-18 00:49] LABS: A/G RATIO 1.1; ALANINE AMINOTRANSFERASE,ALT 25 U/L (12-36); ALKALINE PHOSPHATASE 133 IU/L (56-112); ASPARTATE AMNIOTRANSFERASE,AST 19 IU/L (5-25); BILIRUBIN TOTAL 0.4 mg/dL (0.1-1.3); CREATINE KINASE,CK 146 IU/L (60-160); MAGNESIUM 1.4 mg/dL (1.8-2.5); PROTEIN TOTAL,TP 7.8 g/dL (6.0-8.0)
[2025-01-18 00:52] LABS: C-REACTIVE PROTEIN <0.50 mg/dL (<0.50); TROPONIN I 7.8 pg/mL (4.0-60.3)
[2025-01-18 01:56] LABS: BILIRUBIN,URINE NEGATIVE (NEGATIVE); GLUCOSE,URINE NORMAL (NORMAL); KETONES,URINE NEGATIVE (NEGATIVE); LEUKOCYTE ESTERASE,URINE NEGATIVE (NEGATIVE); NITRITE,URINE NEGATIVE (NEGATIVE); OCCULT BLOOD,URINE NEGATIVE (NEGATIVE); PROTEIN,URINE 30 mg/dL (NEGATIVE); UROBILINOGEN,URINE NORMAL (NEGATIVE)
[2025-01-18 01:57] LABS: APPEARANCE,URINE CLEAR (CLEAR); COLOR,URINE YELLOW (YELLOW)
[2025-01-18 02:10] LABS: RBC,URINE 0-5 (0-5); WBC,URINE 0-5 (0-5)
[2025-01-18 02:11] LABS: BACTERIA,URINE FEW (NS); SQUAMOUS EPITHELIAL CELLS,UR FEW (NS,R,O)
[2025-01-18 02:13] VITALS: BP 143/65; PULSE 80
[2025-01-18] MEDS: Sodium Chloride 0.9% 1,000 ML IV ONE (03:15)
[2025-01-18] MEDS: Magnesium Oxide 400 MG Tab PO ONE (05:22)
== END 2025-01-18 05:42 | disposition home or self-care (01) ==
LOC: FB.ED 23:45
DX: S50.02XA Contusion of left elbow, initial encounter (principal); E78.00 Pure hypercholesterolemia, unspecified; E83.42 Hypomagnesemia; E86.0 Dehydration; I10 Essential (primary) hypertension; F17.200 Nicotine dependence, unspecified, uncomplicated; Z88.8 Allergy status to other drugs, medicaments and biological substances; Z79.890 Hormone replacement therapy; Z79.899 Other long term (current) drug therapy; Z79.84 Long term (current) use of oral hypoglycemic drugs; Z90.49 Acquired absence of other specified parts of digestive tract; W18.30XA Fall on same level, unspecified, initial encounter
CPT/HCPCS: 36415; 70450; 72125; 73080-LT; 80053; 81001; 82550; 83605; 83735; 84484; 85025; 86140; 87086; 93005; 96360; 99284; 99285-25; A9270-GY; J7030

== ENCOUNTER 2025-01-24 14:08 | Inpatient (IN) | payer MEDICARE ==
[2025-01-24 14:58] LABS: BASOPHILS ABSOLUTE AUTO 0.1 x10-3/uL (0.0-0.1); BASOPHILS PERCENT AUTO 0.9 % (0.2-1.5); EOSINOPHILS ABSOLUTE AUTO 0.1 x10-3/uL (0.0-0.8); EOSINOPHILS PERCENT AUTO 1.1 % (0.6-8.1); LYMPHOCYTES ABSOLUTE AUTO 1.7 x10-3/uL (1.0-4.4); LYMPHOCYTES PERCENT AUTO 25.7 % (18.4-52.1); MEAN PLATELET VOLUME 7.7 fL (7.1-12.4); MONOCYTES ABSOLUTE AUTO 0.6 x10-3/uL (0.3-1.0); MONOCYTES PERCENT AUTO 9.6 % (4.4-15.7); NEUTROPHILS ABSOLUTE AUTO 4.0 x10-3/uL (1.5-6.3); NEUTROPHILS PERCENT AUTO 62.7 % (30.8-76.2); PLATELET COUNT,PLT 356 x10(3)uL (151-488); RED BLOOD CELL COUNT 4.48 x10(6)uL (3.60-5.20); RED CELL DISTRIBUTION WIDTH 14.8 % (12.3-16.5); WHITE BLOOD CELL COUNT,WBC 6.4 x10-3/uL (3.0-10.3)
[2025-01-24 15:03] LABS: BLOOD UREA NITROGEN,BUN 26 mg/dL (7-18); CARBON DIOXIDE,CO2 28 mmol/L (21-32); CHLORIDE,CL 99 mmol/L (100-110); CREATININE 1.7 mg/dL (0.55-1.02); ESTIMATED GFR 32 mL/min (>60); GLUCOSE RANDOM 217 mg/dL (80-116); POTASSIUM,K 4.8 mmol/L (3.5-5.3); SODIUM,NA 135 mmol/L (135-145)
[2025-01-24 15:10] LABS: A/G RATIO 1.1; ALANINE AMINOTRANSFERASE,ALT 29 U/L (12-36); ASPARTATE AMNIOTRANSFERASE,AST 25 IU/L (5-25); BILIRUBIN TOTAL 0.4 mg/dL (0.1-1.3); CREATINE KINASE,CK 148 IU/L (60-160); PROTEIN TOTAL,TP 7.9 g/dL (6.0-8.0)
[2025-01-24 15:12] LABS: LACTIC ACID 1.4 mmol/L (0.4-2.0)
[2025-01-24] MEDS: Sodium Chloride 0.9% 10 ML Syringe FLUSH PRN (15:12)
[2025-01-24] MEDS: Magnesium Sulfate 2 GM/50 mL 2 GM in Premix Bag 1 BAG IV ONE (19:52)
[2025-01-24 20:03] LABS: GLUCOSE,URINE NORMAL (NORMAL); OCCULT BLOOD,URINE NEGATIVE (NEGATIVE)
[2025-01-24 20:15] LABS: APPEARANCE,URINE CLEAR (CLEAR)
[2025-01-24 20:32] LABS: AMPHETAMINES SCREEN, URINE NEGATIVE (NEGATIVE); METHADONE SCREEN, URINE NEGATIVE (NEGATIVE); METHAMPHETAMINE SCREEN, URINE NEGATIVE (NEGATIVE); OXYCODONE SCREEN,URINE NEGATIVE (NEGATIVE)
[2025-01-24 20:33] LABS: BUPRENORPHINE SCREEN,URINE NEGATIVE (NEGATIVE)
[2025-01-24 20:40] LABS: SQUAMOUS EPITHELIAL CELLS,UR FEW (NS,R,O)
[2025-01-25 07:06] LABS: BASOPHILS ABSOLUTE AUTO 0.0 x10-3/uL (0.0-0.1); BASOPHILS PERCENT AUTO 0.8 % (0.2-1.5); EOSINOPHILS ABSOLUTE AUTO 0.1 x10-3/uL (0.0-0.8); EOSINOPHILS PERCENT AUTO 1.7 % (0.6-8.1); LYMPHOCYTES ABSOLUTE AUTO 2.3 x10-3/uL (1.0-4.4); LYMPHOCYTES PERCENT AUTO 41.7 % (18.4-52.1); MEAN PLATELET VOLUME 7.4 fL (7.1-12.4); MONOCYTES ABSOLUTE AUTO 0.4 x10-3/uL (0.3-1.0); MONOCYTES PERCENT AUTO 8.0 % (4.4-15.7); NEUTROPHILS ABSOLUTE AUTO 2.6 x10-3/uL (1.5-6.3); NEUTROPHILS PERCENT AUTO 47.8 % (30.8-76.2); PLATELET COUNT,PLT 307 x10(3)uL (151-488); RED BLOOD CELL COUNT 3.90 x10(6)uL (3.60-5.20); RED CELL DISTRIBUTION WIDTH 14.7 % (12.3-16.5); WHITE BLOOD CELL COUNT,WBC 5.4 x10-3/uL (3.0-10.3)
[2025-01-25 07:15] LABS: A/G RATIO 1.0; ALANINE AMINOTRANSFERASE,ALT 23 U/L (12-36); ASPARTATE AMNIOTRANSFERASE,AST 22 IU/L (5-25); BILIRUBIN TOTAL 0.2 mg/dL (0.1-1.3); BLOOD UREA NITROGEN,BUN 21 mg/dL (7-18); CARBON DIOXIDE,CO2 26 mmol/L (21-32); CHLORIDE,CL 104 mmol/L (100-110); CREATININE 1.2 mg/dL (0.55-1.02); EST CRCL DRUG DOSING (CG) 31.78 mL/min; ESTIMATED GFR 49 mL/min (>60); GLUCOSE RANDOM 133 mg/dL (80-116); POTASSIUM,K 4.3 mmol/L (3.5-5.3); PROTEIN TOTAL,TP 6.5 g/dL (6.0-8.0); SODIUM,NA 135 mmol/L (135-145)
[2025-01-25] MEDS ORDERED: Ondansetron 4 MG Tab.DIS PO PRN (08:04)
[2025-01-25] MEDS ORDERED: Atropine/Diphenoxylate 0.025-2.5 MG Tab PO PRN (09:07)
[2025-01-25] MEDS ORDERED: Sennosides/Docusate Sodium 50-8.6 MG Tab PO PRN (09:07)
[2025-01-25] MEDS: buPROPion 150 MG Tab.ER PO SCH (09:46)
[2025-01-25] MEDS: Cyanocobalamin (Vitamin B12) 1,000 MCG Tab PO SCH (09:49)
[2025-01-25] MEDS: Tiotropium Bromide 4 GM Inhalation Spray (2.5mcg/1 dose; 10 doses) INH SCH (09:53)
[2025-01-25] MEDS: Formoterol/Mometasone 100-5 MCG 8.8 GM Inhaler IH SCH (09:53)
[2025-01-26] MEDS: buPROPion 150 MG Tab.ER PO SCH (08:43)
[2025-01-26] MEDS: Cholecalciferol (Vitamin D3) 25 MCG Tab PO SCH (08:44)
[2025-01-26 10:31] VITALS: BP 162/73; PULSE 74
== END 2025-01-26 11:45 | disposition home health service (06) | DRG 92 ==
LOC: FB.ED 14:08 → FB.MS 18:38 → OBSVTOIN 01-25 08:04
PROVIDERS: ADMIT Family Medicine; ATTEND Family Medicine
DX: R29.6 Repeated falls (principal); F33.1 Major depressive disorder, recurrent, moderate; R44.3 Hallucinations, unspecified; E11.40 Type 2 diabetes mellitus with diabetic neuropathy, unspecified; E66.9 Obesity, unspecified; H54.7 Unspecified visual loss; E78.00 Pure hypercholesterolemia, unspecified; F17.200 Nicotine dependence, unspecified, uncomplicated; Z88.5 Allergy status to narcotic agent; Z66 Do not resuscitate; Z51.5 Encounter for palliative care; J44.9 Chronic obstructive pulmonary disease, unspecified; K59.09 Other constipation; M19.90 Unspecified osteoarthritis, unspecified site; G43.909 Migraine, unspecified, not intractable, without status migrainosus; Z68.36 Body mass index [BMI] 36.0-36.9, adult; E11.42 Type 2 diabetes mellitus with diabetic polyneuropathy; F41.9 Anxiety disorder, unspecified; E03.9 Hypothyroidism, unspecified; E66.1 Drug-induced obesity; E11.65 Type 2 diabetes mellitus with hyperglycemia; I12.9 Hypertensive chronic kidney disease with stage 1 through stage 4 chronic kidney disease, or unspecified chronic kidney disease; N18.32 Chronic kidney disease, stage 3b; R53.1 Weakness; I35.0 Nonrheumatic aortic (valve) stenosis; E11.22 Type 2 diabetes mellitus with diabetic chronic kidney disease; E83.42 Hypomagnesemia; R01.1 Cardiac murmur, unspecified; E86.0 Dehydration; R41.0 Disorientation, unspecified; Z79.84 Long term (current) use of oral hypoglycemic drugs; Z88.8 Allergy status to other drugs, medicaments and biological substances; Z79.899 Other long term (current) drug therapy; Z90.710 Acquired absence of both cervix and uterus; Z90.49 Acquired absence of other specified parts of digestive tract; Z72.0 Tobacco use; Z98.890 Other specified postprocedural states; Z98.891 History of uterine scar from previous surgery; Z90.722 Acquired absence of ovaries, bilateral; Z68.28 Body mass index [BMI] 28.0-28.9, adult
CPT/HCPCS: 36415; 70450; 80053; 80307; 81001; 82550; 82947; 83605; 83735; 84484; 85025; 86140; 93005; 93010; 93306; 94150; 96360; 96361; 96374; 97161-GP; 97165-GO; 99222; 99238; 99285; 99285-25; A9270-GY; G0378; J1650; J3475; J7030

== ENCOUNTER 2025-01-30 09:46 | Inpatient (IN) | payer MEDICARE ==
[2025-01-30 10:35] LABS: BASOPHILS ABSOLUTE AUTO 0.0 x10-3/uL (0.0-0.1); BASOPHILS PERCENT AUTO 0.5 % (0.2-1.5); EOSINOPHILS ABSOLUTE AUTO 0.1 x10-3/uL (0.0-0.8); EOSINOPHILS PERCENT AUTO 1.7 % (0.6-8.1); LYMPHOCYTES ABSOLUTE AUTO 1.9 x10-3/uL (1.0-4.4); LYMPHOCYTES PERCENT AUTO 31.1 % (18.4-52.1); MEAN PLATELET VOLUME 7.6 fL (7.1-12.4); MONOCYTES ABSOLUTE AUTO 0.6 x10-3/uL (0.3-1.0); MONOCYTES PERCENT AUTO 10.2 % (4.4-15.7); NEUTROPHILS ABSOLUTE AUTO 3.4 x10-3/uL (1.5-6.3); NEUTROPHILS PERCENT AUTO 56.5 % (30.8-76.2); PLATELET COUNT,PLT 291 x10(3)uL (151-488); RED BLOOD CELL COUNT 4.24 x10(6)uL (3.60-5.20); RED CELL DISTRIBUTION WIDTH 14.8 % (12.3-16.5); WHITE BLOOD CELL COUNT,WBC 6.0 x10-3/uL (3.0-10.3)
[2025-01-30 10:43] LABS: BLOOD UREA NITROGEN,BUN 25 mg/dL (7-18); CARBON DIOXIDE,CO2 22 mmol/L (21-32); CHLORIDE,CL 101 mmol/L (100-110); CREATININE 1.5 mg/dL (0.55-1.02); ESTIMATED GFR 37 mL/min (>60); GLUCOSE RANDOM 179 mg/dL (80-116); POTASSIUM,K 4.1 mmol/L (3.5-5.3); SODIUM,NA 137 mmol/L (135-145)
[2025-01-30] MEDS: Magnesium Sulfate 2 GM/50 mL 2 GM in Premix Bag 1 BAG IV ONE ×2 (11:12→17:15)
[2025-01-30 13:04] LABS: APPEARANCE,URINE CLEAR (CLEAR); GLUCOSE,URINE NORMAL (NORMAL); OCCULT BLOOD,URINE NEGATIVE (NEGATIVE); SQUAMOUS EPITHELIAL CELLS,UR OCCASIONAL (NS,R,O)
[2025-01-30] MEDS: Sodium Chloride 0.9% 10 ML Syringe FLUSH PRN (20:41)
[2025-01-31 06:29] LABS: BLOOD UREA NITROGEN,BUN 16 mg/dL (7-18); CARBON DIOXIDE,CO2 25 mmol/L (21-32); CHLORIDE,CL 104 mmol/L (100-110); CREATININE 1.1 mg/dL (0.55-1.02); EST CRCL DRUG DOSING (CG) 34.67 mL/min; ESTIMATED GFR 54 mL/min (>60); GLUCOSE RANDOM 183 mg/dL (80-116); POTASSIUM,K 4.0 mmol/L (3.5-5.3); SODIUM,NA 137 mmol/L (135-145)
[2025-01-31] MEDS ORDERED: Atropine/Diphenoxylate 0.025-2.5 MG Tab PO PRN (14:37)
[2025-01-31] MEDS ORDERED: Ondansetron 4 MG Tab.DIS PO PRN (14:37)
[2025-01-31] MEDS ORDERED: Sennosides/Docusate Sodium 50-8.6 MG Tab PO PRN (14:37)
[2025-01-31] MEDS ORDERED: 50% Dextrose in Water 50 ML Syringe IVPUSH PRN (14:41)
[2025-01-31] MEDS: Insulin Lispro 100 Unit/ML 3 ML KwikPen SUBCUT SCH (17:55)
[2025-02-01] MEDS: Aluminum Hydroxide/Magnesium Hydroxide Susp 30 ML Cup PO PRN (01:26)
[2025-02-01 06:19] LABS: BASOPHILS ABSOLUTE AUTO 0.0 x10-3/uL (0.0-0.1); BASOPHILS PERCENT AUTO 0.5 % (0.2-1.5); EOSINOPHILS ABSOLUTE AUTO 0.1 x10-3/uL (0.0-0.8); EOSINOPHILS PERCENT AUTO 2.1 % (0.6-8.1); LYMPHOCYTES ABSOLUTE AUTO 2.1 x10-3/uL (1.0-4.4); LYMPHOCYTES PERCENT AUTO 37.4 % (18.4-52.1); MEAN PLATELET VOLUME 7.7 fL (7.1-12.4); MONOCYTES ABSOLUTE AUTO 0.6 x10-3/uL (0.3-1.0); MONOCYTES PERCENT AUTO 10.6 % (4.4-15.7); NEUTROPHILS ABSOLUTE AUTO 2.8 x10-3/uL (1.5-6.3); NEUTROPHILS PERCENT AUTO 49.4 % (30.8-76.2); PLATELET COUNT,PLT 267 x10(3)uL (151-488); RED BLOOD CELL COUNT 3.89 x10(6)uL (3.60-5.20); RED CELL DISTRIBUTION WIDTH 14.9 % (12.3-16.5); WHITE BLOOD CELL COUNT,WBC 5.6 x10-3/uL (3.0-10.3)
[2025-02-01 06:22] LABS: BLOOD UREA NITROGEN,BUN 10 mg/dL (7-18); CARBON DIOXIDE,CO2 27 mmol/L (21-32); CHLORIDE,CL 102 mmol/L (100-110); CREATININE 1.1 mg/dL (0.55-1.02); EST CRCL DRUG DOSING (CG) 34.67 mL/min; ESTIMATED GFR 54 mL/min (>60); GLUCOSE RANDOM 254 mg/dL (80-116); POTASSIUM,K 4.3 mmol/L (3.5-5.3); SODIUM,NA 137 mmol/L (135-145)
[2025-02-01] MEDS: Formoterol/Mometasone 100-5 MCG 8.8 GM Inhaler IH SCH (08:29)
[2025-02-01] MEDS: Tiotropium Bromide 4 GM Inhalation Spray (2.5mcg/1 dose; 10 doses) INH SCH (08:32)
[2025-02-01] MEDS: Cyanocobalamin (Vitamin B12) 1,000 MCG Tab PO SCH (08:33)
[2025-02-01] MEDS: buPROPion 150 MG Tab.ER PO SCH (08:34)
[2025-02-01] MEDS: Cholecalciferol (Vitamin D3) 25 MCG Tab PO SCH (08:34)
[2025-02-01] MEDS ORDERED: Non-Formulary Medication 1 Each (Bupropion Hcl [Wellbutrin Xl] 300 MG Tab.Er.24h) PO SCH (09:00)
[2025-02-01 15:10] VITALS: BP 162/88; PULSE 78
== END 2025-02-01 15:00 | disposition home health service (06) | DRG 65 ==
LOC: FB.ED 09:46 → OBSVTOIN 18:00 → FB.MS 18:00
PROVIDERS: ADMIT Internal Medicine; ATTEND Internal Medicine
DX: R44.0 Auditory hallucinations (principal); F03.B2 Unspecified dementia, moderate, with psychotic disturbance; I63.9 Cerebral infarction, unspecified; F03.94 Unspecified dementia, unspecified severity, with anxiety; E83.42 Hypomagnesemia; G43.909 Migraine, unspecified, not intractable, without status migrainosus; E11.9 Type 2 diabetes mellitus without complications; Z66 Do not resuscitate; H54.7 Unspecified visual loss; E78.00 Pure hypercholesterolemia, unspecified; Z79.890 Hormone replacement therapy; I10 Essential (primary) hypertension; J44.9 Chronic obstructive pulmonary disease, unspecified; K59.09 Other constipation; Z68.29 Body mass index [BMI] 29.0-29.9, adult; W19.XXXA Unspecified fall, initial encounter; M19.90 Unspecified osteoarthritis, unspecified site; E11.40 Type 2 diabetes mellitus with diabetic neuropathy, unspecified; F41.9 Anxiety disorder, unspecified; E86.0 Dehydration; R62.7 Adult failure to thrive; R29.6 Repeated falls; E03.9 Hypothyroidism, unspecified; E66.9 Obesity, unspecified; Z68.28 Body mass index [BMI] 28.0-28.9, adult; Z90.49 Acquired absence of other specified parts of digestive tract; Z98.890 Other specified postprocedural states; Z98.891 History of uterine scar from previous surgery; Z79.84 Long term (current) use of oral hypoglycemic drugs; Z79.899 Other long term (current) drug therapy; Z88.8 Allergy status to other drugs, medicaments and biological substances; Z90.710 Acquired absence of both cervix and uterus; Z79.82 Long term (current) use of aspirin
CPT/HCPCS: 36415; 80048; 81001; 83036; 83735 ×2; 85025; 96365; 96366; 99285; J3475 ×2; J7030; 70551; 70551-26; 82550; 82947; 87426-QW; 96361; 99223; 99238; A9270-GY; G0378

== ENCOUNTER 2025-02-05 11:41 | Inpatient (IN) | payer MEDICARE ==
[2025-02-05 12:33] LABS: BASOPHILS ABSOLUTE AUTO 0.1 x10-3/uL (0.0-0.1); BASOPHILS PERCENT AUTO 1.1 % (0.2-1.5); EOSINOPHILS ABSOLUTE AUTO 0.1 x10-3/uL (0.0-0.8); EOSINOPHILS PERCENT AUTO 1.0 % (0.6-8.1); LYMPHOCYTES ABSOLUTE AUTO 1.6 x10-3/uL (1.0-4.4); LYMPHOCYTES PERCENT AUTO 25.1 % (18.4-52.1); MEAN PLATELET VOLUME 8.5 fL (7.1-12.4); MONOCYTES ABSOLUTE AUTO 0.6 x10-3/uL (0.3-1.0); MONOCYTES PERCENT AUTO 9.9 % (4.4-15.7); NEUTROPHILS ABSOLUTE AUTO 4.0 x10-3/uL (1.5-6.3); NEUTROPHILS PERCENT AUTO 62.9 % (30.8-76.2); PLATELET COUNT,PLT 318 x10(3)uL (151-488); RED BLOOD CELL COUNT 3.93 x10(6)uL (3.60-5.20); RED CELL DISTRIBUTION WIDTH 14.9 % (12.3-16.5); WHITE BLOOD CELL COUNT,WBC 6.4 x10-3/uL (3.0-10.3)
[2025-02-05 12:36] LABS: BLOOD UREA NITROGEN,BUN 31 mg/dL (7-18); CARBON DIOXIDE,CO2 25 mmol/L (21-32); CHLORIDE,CL 101 mmol/L (100-110); CREATININE 1.2 mg/dL (0.55-1.02); ESTIMATED GFR 49 mL/min (>60); GLUCOSE RANDOM 220 mg/dL (80-116); POTASSIUM,K 5.4 mmol/L (3.5-5.3); SODIUM,NA 135 mmol/L (135-145)
[2025-02-05 12:42] LABS: A/G RATIO 1.0; ALANINE AMINOTRANSFERASE,ALT 30 U/L (12-36); ASPARTATE AMNIOTRANSFERASE,AST 55 IU/L (5-25); BILIRUBIN TOTAL 0.5 mg/dL (0.1-1.3); PROTEIN TOTAL,TP 7.5 g/dL (6.0-8.0)
[2025-02-05 14:16] LABS: APPEARANCE,URINE CLEAR (CLEAR); GLUCOSE,URINE 50 mg/dL (NORMAL); OCCULT BLOOD,URINE LARGE (NEGATIVE)
[2025-02-05 14:17] LABS: SQUAMOUS EPITHELIAL CELLS,UR FEW (NS,R,O)
[2025-02-05] MEDS ORDERED: Atropine/Diphenoxylate 0.025-2.5 MG Tab PO PRN (16:14)
[2025-02-05] MEDS ORDERED: Ondansetron 4 MG Tab.DIS PO PRN (16:14)
[2025-02-06] MEDS ORDERED: 50% Dextrose in Water 50 ML Syringe IVPUSH PRN (08:50)
[2025-02-06] MEDS ORDERED: Non-Formulary Medication 1 Each (Bupropion Hcl [Wellbutrin Xl] 300 MG Tab.Er.24h) PO SCH (09:00)
[2025-02-06] MEDS: Cholecalciferol (Vitamin D3) 25 MCG Tab PO SCH (09:01)
[2025-02-06] MEDS: Cyanocobalamin (Vitamin B12) 1,000 MCG Tab PO SCH (09:03)
[2025-02-06] MEDS: buPROPion 150 MG Tab.ER PO SCH (09:04)
[2025-02-06] MEDS: Tiotropium Bromide 4 GM Inhalation Spray (2.5mcg/1 dose; 10 doses) INH SCH (09:05)
[2025-02-06] MEDS: Formoterol/Mometasone 100-5 MCG 8.8 GM Inhaler INH SCH (09:06)
[2025-02-06] MEDS: Insulin Lispro 100 Unit/ML 3 ML KwikPen SUBCUT SCH (12:42)
[2025-02-07 06:45] LABS: BASOPHILS ABSOLUTE AUTO 0.0 x10-3/uL (0.0-0.1); BASOPHILS PERCENT AUTO 0.7 % (0.2-1.5); EOSINOPHILS ABSOLUTE AUTO 0.1 x10-3/uL (0.0-0.8); EOSINOPHILS PERCENT AUTO 2.0 % (0.6-8.1); LYMPHOCYTES ABSOLUTE AUTO 2.1 x10-3/uL (1.0-4.4); LYMPHOCYTES PERCENT AUTO 36.7 % (18.4-52.1); MEAN PLATELET VOLUME 8.1 fL (7.1-12.4); MONOCYTES ABSOLUTE AUTO 0.6 x10-3/uL (0.3-1.0); MONOCYTES PERCENT AUTO 10.1 % (4.4-15.7); NEUTROPHILS ABSOLUTE AUTO 2.9 x10-3/uL (1.5-6.3); NEUTROPHILS PERCENT AUTO 50.5 % (30.8-76.2); PLATELET COUNT,PLT 284 x10(3)uL (151-488); RED BLOOD CELL COUNT 3.57 x10(6)uL (3.60-5.20); RED CELL DISTRIBUTION WIDTH 15.0 % (12.3-16.5); WHITE BLOOD CELL COUNT,WBC 5.8 x10-3/uL (3.0-10.3)
[2025-02-07 06:51] LABS: BLOOD UREA NITROGEN,BUN 24 mg/dL (7-18); CARBON DIOXIDE,CO2 26 mmol/L (21-32); CHLORIDE,CL 103 mmol/L (100-110); CREATININE 1.2 mg/dL (0.55-1.02); EST CRCL DRUG DOSING (CG) 31.78 mL/min; ESTIMATED GFR 49 mL/min (>60); GLUCOSE RANDOM 146 mg/dL (80-116); POTASSIUM,K 4.5 mmol/L (3.5-5.3); SODIUM,NA 138 mmol/L (135-145)
[2025-02-07] MEDS: Iopamidol 755 Mg/ML 100 ML Bottle IV SCH (10:31)
[2025-02-07] MEDS: Aluminum Hydroxide/Magnesium Hydroxide Susp 30 ML Cup PO PRN (15:06)
[2025-02-08 12:55] VITALS: BP 159/75; PULSE 101
== END 2025-02-08 12:35 | disposition home or self-care (01) | DRG 948 ==
LOC: FB.ED 11:41 → FB.MS 14:25
PROVIDERS: ADMIT Family Medicine; ATTEND Family Medicine
DX: R53.1 Weakness (principal); R53.81 Other malaise; Z91.198 Patient's noncompliance with other medical treatment and regimen for other reason; I10 Essential (primary) hypertension; J44.1 Chronic obstructive pulmonary disease with (acute) exacerbation; R44.3 Hallucinations, unspecified; E11.9 Type 2 diabetes mellitus without complications; E86.0 Dehydration; Z88.8 Allergy status to other drugs, medicaments and biological substances; H54.7 Unspecified visual loss; E78.00 Pure hypercholesterolemia, unspecified; K59.09 Other constipation; M19.90 Unspecified osteoarthritis, unspecified site; G43.909 Migraine, unspecified, not intractable, without status migrainosus; E11.42 Type 2 diabetes mellitus with diabetic polyneuropathy; F41.9 Anxiety disorder, unspecified; E03.9 Hypothyroidism, unspecified; E66.9 Obesity, unspecified; F17.200 Nicotine dependence, unspecified, uncomplicated; R41.9 Unspecified symptoms and signs involving cognitive functions and awareness; R29.6 Repeated falls; R01.1 Cardiac murmur, unspecified; I12.9 Hypertensive chronic kidney disease with stage 1 through stage 4 chronic kidney disease, or unspecified chronic kidney disease; N18.31 Chronic kidney disease, stage 3a; I35.0 Nonrheumatic aortic (valve) stenosis; F50.89 Other specified eating disorder; Z88.5 Allergy status to narcotic agent; Z79.899 Other long term (current) drug therapy; Z79.890 Hormone replacement therapy; Z86.73 Personal history of transient ischemic attack (TIA), and cerebral infarction without residual deficits; Z68.28 Body mass index [BMI] 28.0-28.9, adult; Z90.49 Acquired absence of other specified parts of digestive tract; Z98.890 Other specified postprocedural states; Z90.710 Acquired absence of both cervix and uterus; Z90.722 Acquired absence of ovaries, bilateral; Z79.84 Long term (current) use of oral hypoglycemic drugs; Z79.82 Long term (current) use of aspirin
CPT/HCPCS: 71045; 80053; 81001; 84484; 85025; 93005; 96360; 99285; J7030; 36415; 70496; 70496-26; 70498; 70498-26; 80048; 82947; 83036; 93010; A9270-GY; Q9967

== ENCOUNTER 2025-05-16 23:05 | Inpatient (IN) | payer MEDICARE, MEDICAID ==
[2025-05-16 23:54] LABS: BASOPHILS ABSOLUTE AUTO 0.1 x10-3/uL (0.0-0.1); BASOPHILS PERCENT AUTO 0.9 % (0.2-1.5); EOSINOPHILS ABSOLUTE AUTO 0.1 x10-3/uL (0.0-0.8); EOSINOPHILS PERCENT AUTO 1.0 % (0.6-8.1); LYMPHOCYTES ABSOLUTE AUTO 1.9 x10-3/uL (1.0-4.4); LYMPHOCYTES PERCENT AUTO 28.6 % (18.4-52.1); MEAN PLATELET VOLUME 7.8 fL (7.1-12.4); MONOCYTES ABSOLUTE AUTO 0.6 x10-3/uL (0.3-1.0); MONOCYTES PERCENT AUTO 8.9 % (4.4-15.7); NEUTROPHILS ABSOLUTE AUTO 4.0 x10-3/uL (1.5-6.3); NEUTROPHILS PERCENT AUTO 60.6 % (30.8-76.2); PLATELET COUNT,PLT 437 x10(3)uL (151-488); RED BLOOD CELL COUNT 4.35 x10(6)uL (3.60-5.20); RED CELL DISTRIBUTION WIDTH 15.6 % (12.3-16.5); WHITE BLOOD CELL COUNT,WBC 6.6 x10-3/uL (3.0-10.3)
[2025-05-16 23:58] LABS: BLOOD UREA NITROGEN,BUN 15 mg/dL (7-18); CARBON DIOXIDE,CO2 27 mmol/L (21-32); CHLORIDE,CL 105 mmol/L (100-110); CREATININE 1.2 mg/dL (0.55-1.02); EST CRCL DRUG DOSING (CG) 31.78 mL/min; ESTIMATED GFR 49 mL/min (>60); GLUCOSE RANDOM 213 mg/dL (80-116); POTASSIUM,K 4.2 mmol/L (3.5-5.3); SODIUM,NA 140 mmol/L (135-145)
[2025-05-16 23:59] LABS: GLUCOSE,URINE NORMAL (NORMAL); OCCULT BLOOD,URINE MODERATE (NEGATIVE)
[2025-05-17 00:04] LABS: A/G RATIO 0.9; ALANINE AMINOTRANSFERASE,ALT 16 U/L (12-36); ASPARTATE AMNIOTRANSFERASE,AST 21 IU/L (5-25); BILIRUBIN TOTAL 0.4 mg/dL (0.1-1.3); PROTEIN TOTAL,TP 7.2 g/dL (6.0-8.0)
[2025-05-17 00:04] LABS: BASE EXCESS VENOUS,POC -3 mmol/L (-2 - 3+); PCO2 VENOUS,POC 43 mmHg (41-51); PH VENOUS,POC 7.34 pH Units (7.32-7.43)
[2025-05-17 00:10] LABS: INFLUENZA A NAA NEGATIVE (NEGATIVE); INFLUENZA B NAA NEGATIVE (NEGATIVE); RESPIRATORY SYNCYTIAL VIR NAA NEGATIVE (NEGATIVE)
[2025-05-17 00:12] LABS: PRO B-TYPE NATRIUR PEPT,BNPPRO 499 pg/mL (<=125)
[2025-05-17 00:22] LABS: APPEARANCE,URINE CLOUDY (CLEAR)
[2025-05-17 00:22] LABS: CORONAVIRUS COVID-19 NAA NEGATIVE (NEGATIVE)
[2025-05-17 00:30] LABS: SQUAMOUS EPITHELIAL CELLS,UR FEW (NS,R,O)
[2025-05-17] MEDS ORDERED: Ondansetron 4 MG/2 ML SDV IV PRN (01:51)
[2025-05-17] MEDS: Magnesium Sulfate 2 GM/50 mL 2 GM in Premix Bag 1 BAG IV SCH (02:56)
[2025-05-17] MEDS ORDERED: Albuterol 0.083% 2.5 MG/3 ML Neb Soln INH PRN (10:50)
[2025-05-17] MEDS ORDERED: Sennosides/Docusate Sodium 50-8.6 MG Tab PO PRN (10:50)
[2025-05-17] MEDS ORDERED: Ondansetron 4 MG Tab.DIS PO PRN (10:50)
[2025-05-17] MEDS ORDERED: Atropine/Diphenoxylate 0.025-2.5 MG Tab PO PRN (10:50)
[2025-05-17] MEDS ORDERED: 50% Dextrose in Water 50 ML Syringe IVPUSH PRN (11:08)
[2025-05-17] MEDS: Venlafaxine 75 MG Cap.ER PO SCH (12:31)
[2025-05-17] MEDS: Formoterol/Mometasone 100-5 MCG 8.8 GM Inhaler IH SCH (12:31)
[2025-05-17] MEDS: buPROPion 150 MG Tab.ER PO SCH (12:33)
[2025-05-17] MEDS: Tiotropium Bromide 4 GM Inhalation Spray (2.5mcg/1 dose; 10 doses) INH SCH (12:33)
[2025-05-17] MEDS: Insulin Lispro 100 Unit/ML 3 ML KwikPen SUBCUT SCH (12:36)
[2025-05-18 06:40] LABS: BASOPHILS ABSOLUTE AUTO 0.0 x10-3/uL (0.0-0.1); BASOPHILS PERCENT AUTO 0.7 % (0.2-1.5); EOSINOPHILS ABSOLUTE AUTO 0.1 x10-3/uL (0.0-0.8); EOSINOPHILS PERCENT AUTO 1.2 % (0.6-8.1); LYMPHOCYTES ABSOLUTE AUTO 1.7 x10-3/uL (1.0-4.4); LYMPHOCYTES PERCENT AUTO 35.7 % (18.4-52.1); MEAN PLATELET VOLUME 8.0 fL (7.1-12.4); MONOCYTES ABSOLUTE AUTO 0.5 x10-3/uL (0.3-1.0); MONOCYTES PERCENT AUTO 11.4 % (4.4-15.7); NEUTROPHILS ABSOLUTE AUTO 2.4 x10-3/uL (1.5-6.3); NEUTROPHILS PERCENT AUTO 51.0 % (30.8-76.2); PLATELET COUNT,PLT 295 x10(3)uL (151-488); RED BLOOD CELL COUNT 3.52 x10(6)uL (3.60-5.20); RED CELL DISTRIBUTION WIDTH 15.4 % (12.3-16.5); WHITE BLOOD CELL COUNT,WBC 4.6 x10-3/uL (3.0-10.3)
[2025-05-18 06:46] LABS: BLOOD UREA NITROGEN,BUN 14 mg/dL (7-18); CARBON DIOXIDE,CO2 26 mmol/L (21-32); CHLORIDE,CL 107 mmol/L (100-110); CREATININE 1.0 mg/dL (0.55-1.02); EST CRCL DRUG DOSING (CG) 38.14 mL/min; ESTIMATED GFR 61 mL/min (>60); GLUCOSE RANDOM 190 mg/dL (80-116); POTASSIUM,K 4.3 mmol/L (3.5-5.3); SODIUM,NA 140 mmol/L (135-145)
[2025-05-18] MEDS: Cholecalciferol (Vitamin D3) 25 MCG Tab PO SCH (08:37)
[2025-05-18] MEDS: Cyanocobalamin (Vitamin B12) 1,000 MCG Tab PO SCH (08:37)
[2025-05-19 06:29] LABS: BASOPHILS ABSOLUTE AUTO 0.0 x10-3/uL (0.0-0.1); BASOPHILS PERCENT AUTO 0.2 % (0.2-1.5); BLOOD UREA NITROGEN,BUN 20 mg/dL (7-18); CARBON DIOXIDE,CO2 27 mmol/L (21-32); CHLORIDE,CL 105 mmol/L (100-110); CREATININE 1.0 mg/dL (0.55-1.02); EOSINOPHILS ABSOLUTE AUTO 0.1 x10-3/uL (0.0-0.8); EOSINOPHILS PERCENT AUTO 1.7 % (0.6-8.1); EST CRCL DRUG DOSING (CG) 38.14 mL/min; ESTIMATED GFR 61 mL/min (>60); GLUCOSE RANDOM 182 mg/dL (80-116); LYMPHOCYTES ABSOLUTE AUTO 1.9 x10-3/uL (1.0-4.4); LYMPHOCYTES PERCENT AUTO 39.4 % (18.4-52.1); MEAN PLATELET VOLUME 7.8 fL (7.1-12.4); MONOCYTES ABSOLUTE AUTO 0.5 x10-3/uL (0.3-1.0); MONOCYTES PERCENT AUTO 9.4 % (4.4-15.7); NEUTROPHILS ABSOLUTE AUTO 2.4 x10-3/uL (1.5-6.3); NEUTROPHILS PERCENT AUTO 49.3 % (30.8-76.2); PLATELET COUNT,PLT 308 x10(3)uL (151-488); POTASSIUM,K 4.6 mmol/L (3.5-5.3); RED BLOOD CELL COUNT 3.44 x10(6)uL (3.60-5.20); RED CELL DISTRIBUTION WIDTH 14.8 % (12.3-16.5); SODIUM,NA 137 mmol/L (135-145); WHITE BLOOD CELL COUNT,WBC 4.8 x10-3/uL (3.0-10.3)
[2025-05-19 08:54] VITALS: PULSE 60
[2025-05-19 09:41] VITALS: BP 156/61
== END 2025-05-19 11:43 | disposition home health service (06) | DRG 690 ==
LOC: FB.ED 23:05 → FB.MS 05-17 00:26
PROVIDERS: ADMIT Internal Medicine; ATTEND Internal Medicine
DX: N39.0 Urinary tract infection, site not specified (principal); E83.42 Hypomagnesemia; R53.1 Weakness; R29.6 Repeated falls; Z66 Do not resuscitate; N18.32 Chronic kidney disease, stage 3b; H54.7 Unspecified visual loss; E78.00 Pure hypercholesterolemia, unspecified; J44.9 Chronic obstructive pulmonary disease, unspecified; K59.00 Constipation, unspecified; M19.90 Unspecified osteoarthritis, unspecified site; G43.909 Migraine, unspecified, not intractable, without status migrainosus; E86.0 Dehydration; E11.40 Type 2 diabetes mellitus with diabetic neuropathy, unspecified; I12.9 Hypertensive chronic kidney disease with stage 1 through stage 4 chronic kidney disease, or unspecified chronic kidney disease; F41.9 Anxiety disorder, unspecified; E11.22 Type 2 diabetes mellitus with diabetic chronic kidney disease; F17.200 Nicotine dependence, unspecified, uncomplicated; F32.A Depression, unspecified; E03.9 Hypothyroidism, unspecified; E66.9 Obesity, unspecified; Z68.29 Body mass index [BMI] 29.0-29.9, adult; Z90.49 Acquired absence of other specified parts of digestive tract; Z98.891 History of uterine scar from previous surgery; Z88.8 Allergy status to other drugs, medicaments and biological substances; Z79.899 Other long term (current) drug therapy; Z79.84 Long term (current) use of oral hypoglycemic drugs; Z79.82 Long term (current) use of aspirin; Z98.890 Other specified postprocedural states; Z90.710 Acquired absence of both cervix and uterus
CPT/HCPCS: 36415; 70450; 71045; 80048; 80053; 81001; 81003; 82947; 83605; 83735; 83880; 84484; 85025; 86140; 87040; 87086; 87088; 87186; 87637; 93005; 93010; 94150; 97161-GP; 97165-GO; 97530-GP; 99285; A9270-GY; J0696; J1650; J2470; J3475; J7030; J7040

== ENCOUNTER 2025-05-31 20:03 | Inpatient (IN) | payer MEDICAID, MEDICARE ==
[2025-05-31] MEDS ORDERED: Naloxone 0.4 MG/ML SDV IVPUSH PRN (20:20)
[2025-05-31] MEDS: hydrALAZINE 20 MG/ML SDV IVPUSH STA (20:29)
[2025-05-31 20:39] LABS: MEAN PLATELET VOLUME 8.6 fL (7.1-12.4); PLATELET COUNT,PLT 449 x10(3)uL (151-488); RED BLOOD CELL COUNT 4.64 x10(6)uL (3.60-5.20); RED CELL DISTRIBUTION WIDTH 15.3 % (12.3-16.5); WHITE BLOOD CELL COUNT,WBC 14.2 x10-3/uL (3.0-10.3)
[2025-05-31 20:41] LABS: BASE EXCESS VENOUS,POC 0 mmol/L (-2 - 3+); PCO2 VENOUS,POC 38 mmHg (41-51); PH VENOUS,POC 7.42 pH Units (7.32-7.43)
[2025-05-31 20:43] LABS: BLOOD UREA NITROGEN,BUN 20 mg/dL (7-18); CARBON DIOXIDE,CO2 24 mmol/L (21-32); CHLORIDE,CL 93 mmol/L (100-110); CREATININE 1.1 mg/dL (0.55-1.02); ESTIMATED GFR 54 mL/min (>60); GLUCOSE RANDOM 269 mg/dL (80-116); POTASSIUM,K 4.4 mmol/L (3.5-5.3); SODIUM,NA 133 mmol/L (135-145)
[2025-05-31 20:48] LABS: A/G RATIO 0.9; ALANINE AMINOTRANSFERASE,ALT 12 U/L (12-36); ASPARTATE AMNIOTRANSFERASE,AST 15 IU/L (5-25); BILIRUBIN TOTAL 0.5 mg/dL (0.1-1.3); PROTEIN TOTAL,TP 8.0 g/dL (6.0-8.0)
[2025-05-31] MEDS: Nitroglycerin 0.4 MG Tab.SL SL PRN (20:58)
[2025-05-31] MEDS: Magnesium Sulfate 2 GM/50 mL 2 GM in Premix Bag 1 BAG IV ONE ×2 (21:09→22:18)
[2025-05-31] MEDS: Diltiazem 25 MG/5 ML SDV IVPUSH ONE ×2 (21:14→21:42)
[2025-05-31 21:15] LABS: LYMPHOCYTES PERCENT MAN 10 % (13-37); MONOCYTES PERCENT MAN 8 % (4-12); SEG NEUTROPHILS PERCENT MAN 82 % (46-82)
[2025-05-31] MEDS: Alum Hydroxide/Mag Hydroxide 15 ML, Lidocaine 2% 15 ML PO ONE (21:34)
[2025-05-31] MEDS ORDERED: Ondansetron 4 MG/2 ML SDV IV PRN (23:32)
[2025-06-01] MEDS ORDERED: Albuterol 0.083% 2.5 MG/3 ML Neb Soln INH PRN (00:22)
[2025-06-01] MEDS ORDERED: Atropine/Diphenoxylate 0.025-2.5 MG Tab PO PRN (00:22)
[2025-06-01 06:49] LABS: BASOPHILS ABSOLUTE AUTO 0.1 x10-3/uL (0.0-0.1); BASOPHILS PERCENT AUTO 0.5 % (0.2-1.5); EOSINOPHILS ABSOLUTE AUTO 0.0 x10-3/uL (0.0-0.8); EOSINOPHILS PERCENT AUTO 0.2 % (0.6-8.1); LYMPHOCYTES ABSOLUTE AUTO 1.9 x10-3/uL (1.0-4.4); LYMPHOCYTES PERCENT AUTO 14.6 % (18.4-52.1); MEAN PLATELET VOLUME 8.3 fL (7.1-12.4); MONOCYTES ABSOLUTE AUTO 1.3 x10-3/uL (0.3-1.0); MONOCYTES PERCENT AUTO 9.8 % (4.4-15.7); NEUTROPHILS ABSOLUTE AUTO 9.8 x10-3/uL (1.5-6.3); NEUTROPHILS PERCENT AUTO 74.9 % (30.8-76.2); PLATELET COUNT,PLT 361 x10(3)uL (151-488); RED BLOOD CELL COUNT 4.15 x10(6)uL (3.60-5.20); RED CELL DISTRIBUTION WIDTH 15.2 % (12.3-16.5); WHITE BLOOD CELL COUNT,WBC 13.0 x10-3/uL (3.0-10.3)
[2025-06-01 07:10] LABS: A/G RATIO 0.8; ALANINE AMINOTRANSFERASE,ALT 10 U/L (12-36); ASPARTATE AMNIOTRANSFERASE,AST 16 IU/L (5-25); BILIRUBIN TOTAL 0.4 mg/dL (0.1-1.3); BLOOD UREA NITROGEN,BUN 18 mg/dL (7-18); CARBON DIOXIDE,CO2 24 mmol/L (21-32); CHLORIDE,CL 96 mmol/L (100-110); CREATININE 0.9 mg/dL (0.55-1.02); EST CRCL DRUG DOSING (CG) 42.38 mL/min; ESTIMATED GFR 69 mL/min (>60); GLUCOSE RANDOM 240 mg/dL (80-116); POTASSIUM,K 3.7 mmol/L (3.5-5.3); PROTEIN TOTAL,TP 6.8 g/dL (6.0-8.0); SODIUM,NA 132 mmol/L (135-145)
[2025-06-01 08:14] LABS: LACTIC ACID 1.0 mmol/L (0.4-2.0)
[2025-06-01 09:16] LABS: APPEARANCE,URINE CLEAR (CLEAR); GLUCOSE,URINE 100 mg/dL (NORMAL); OCCULT BLOOD,URINE MODERATE (NEGATIVE); SQUAMOUS EPITHELIAL CELLS,UR FEW (NS,R,O)
[2025-06-01] MEDS: Formoterol/Mometasone 100-5 MCG 8.8 GM Inhaler INH SCH (09:20)
[2025-06-01] MEDS: Venlafaxine 75 MG Cap.ER PO SCH (09:21)
[2025-06-01] MEDS: Tiotropium Bromide 4 GM Inhalation Spray (2.5mcg/1 dose; 10 doses) INH SCH (09:23)
[2025-06-01] MEDS: Cyanocobalamin (Vitamin B12) 1,000 MCG Tab PO SCH (09:23)
[2025-06-01] MEDS: buPROPion 150 MG Tab.ER PO SCH (09:24)
[2025-06-01] MEDS: Cholecalciferol (Vitamin D3) 25 MCG Tab PO SCH (09:24)
[2025-06-01 11:13] LABS: INFLUENZA A NAA NEGATIVE (NEGATIVE); INFLUENZA B NAA NEGATIVE (NEGATIVE); RESPIRATORY SYNCYTIAL VIR NAA NEGATIVE (NEGATIVE)
[2025-06-01 11:14] LABS: CORONAVIRUS COVID-19 NAA NEGATIVE (NEGATIVE)
[2025-06-01] MEDS ORDERED: 50% Dextrose in Water 50 ML Syringe IVPUSH PRN (12:10)
[2025-06-01] MEDS: Iopamidol 755 Mg/ML 100 ML Bottle IV SCH (12:29)
[2025-06-01] MEDS: Insulin Lispro 100 Unit/ML 3 ML KwikPen SUBCUT SCH (13:03)
[2025-06-01] MEDS: Furosemide 40 MG/4 ML VIAL IVPUSH SCH (16:02)
[2025-06-01] MEDS: Insulin Glargine,Human Rec. Analog 100 Units/ML 3 ML Pen SUBCUT SCH (20:49)
[2025-06-02 06:28] LABS: BASOPHILS ABSOLUTE AUTO 0.1 x10-3/uL (0.0-0.1); BASOPHILS PERCENT AUTO 0.8 % (0.2-1.5); EOSINOPHILS ABSOLUTE AUTO 0.1 x10-3/uL (0.0-0.8); EOSINOPHILS PERCENT AUTO 1.3 % (0.6-8.1); LYMPHOCYTES ABSOLUTE AUTO 2.8 x10-3/uL (1.0-4.4); LYMPHOCYTES PERCENT AUTO 29.7 % (18.4-52.1); MEAN PLATELET VOLUME 8.3 fL (7.1-12.4); MONOCYTES ABSOLUTE AUTO 0.8 x10-3/uL (0.3-1.0); MONOCYTES PERCENT AUTO 8.8 % (4.4-15.7); NEUTROPHILS ABSOLUTE AUTO 5.7 x10-3/uL (1.5-6.3); NEUTROPHILS PERCENT AUTO 59.4 % (30.8-76.2); PLATELET COUNT,PLT 350 x10(3)uL (151-488); RED BLOOD CELL COUNT 4.29 x10(6)uL (3.60-5.20); RED CELL DISTRIBUTION WIDTH 15.7 % (12.3-16.5); WHITE BLOOD CELL COUNT,WBC 9.5 x10-3/uL (3.0-10.3)
[2025-06-02 06:47] LABS: BLOOD UREA NITROGEN,BUN 17 mg/dL (7-18); CARBON DIOXIDE,CO2 27 mmol/L (21-32); CHLORIDE,CL 102 mmol/L (100-110); CREATININE 1.0 mg/dL (0.55-1.02); EST CRCL DRUG DOSING (CG) 38.14 mL/min; ESTIMATED GFR 61 mL/min (>60); GLUCOSE RANDOM 119 mg/dL (80-116); POTASSIUM,K 3.4 mmol/L (3.5-5.3); SODIUM,NA 139 mmol/L (135-145)
[2025-06-02] MEDS: Sodium Chloride 0.9% 10 ML Syringe FLUSH PRN (08:22)
[2025-06-02] MEDS: Magnesium Sulfate 2 GM/50 mL 2 GM in Premix Bag 1 BAG IV ONE (09:59)
[2025-06-02] MEDS: Potassium Chloride 20 MEQ in Premix Bag 1 BAG IV ONE (10:00)
[2025-06-02 17:24] LABS: POTASSIUM,K 3.8 mmol/L (3.5-5.3)
[2025-06-03 06:57] LABS: BASOPHILS ABSOLUTE AUTO 0.0 x10-3/uL (0.0-0.1); BASOPHILS PERCENT AUTO 0.4 % (0.2-1.5); EOSINOPHILS ABSOLUTE AUTO 0.1 x10-3/uL (0.0-0.8); EOSINOPHILS PERCENT AUTO 1.7 % (0.6-8.1); LYMPHOCYTES ABSOLUTE AUTO 2.6 x10-3/uL (1.0-4.4); LYMPHOCYTES PERCENT AUTO 42.1 % (18.4-52.1); MEAN PLATELET VOLUME 8.3 fL (7.1-12.4); MONOCYTES ABSOLUTE AUTO 0.6 x10-3/uL (0.3-1.0); MONOCYTES PERCENT AUTO 9.9 % (4.4-15.7); NEUTROPHILS ABSOLUTE AUTO 2.8 x10-3/uL (1.5-6.3); NEUTROPHILS PERCENT AUTO 45.9 % (30.8-76.2); PLATELET COUNT,PLT 321 x10(3)uL (151-488); RED BLOOD CELL COUNT 3.98 x10(6)uL (3.60-5.20); RED CELL DISTRIBUTION WIDTH 15.9 % (12.3-16.5); WHITE BLOOD CELL COUNT,WBC 6.1 x10-3/uL (3.0-10.3)
[2025-06-03 07:01] LABS: BLOOD UREA NITROGEN,BUN 21 mg/dL (7-18); CARBON DIOXIDE,CO2 27 mmol/L (21-32); CHLORIDE,CL 106 mmol/L (100-110); CREATININE 1.0 mg/dL (0.55-1.02); EST CRCL DRUG DOSING (CG) 38.14 mL/min; ESTIMATED GFR 61 mL/min (>60); GLUCOSE RANDOM 145 mg/dL (80-116); POTASSIUM,K 3.3 mmol/L (3.5-5.3); SODIUM,NA 141 mmol/L (135-145)
[2025-06-03] MEDS: Lactated Ringers 1,000 ML IV SCH (09:00)
[2025-06-03] MEDS: Potassium Chloride 20 MEQ Tab.ER PO ONE (09:06)
[2025-06-03] MEDS: Potassium Chloride 20 MEQ in Premix Bag 1 BAG IV ONE (10:09)
[2025-06-03] MEDS: Sennosides/Docusate Sodium 50-8.6 MG Tab PO PRN (15:32)
[2025-06-03] MEDS ORDERED: Propofol 200 MG/20 ML SDV IV ONE (15:33)
[2025-06-04 06:56] LABS: BASOPHILS ABSOLUTE AUTO 0.0 x10-3/uL (0.0-0.1); BASOPHILS PERCENT AUTO 0.7 % (0.2-1.5); EOSINOPHILS ABSOLUTE AUTO 0.1 x10-3/uL (0.0-0.8); EOSINOPHILS PERCENT AUTO 1.8 % (0.6-8.1); LYMPHOCYTES ABSOLUTE AUTO 2.8 x10-3/uL (1.0-4.4); LYMPHOCYTES PERCENT AUTO 46.1 % (18.4-52.1); MEAN PLATELET VOLUME 8.4 fL (7.1-12.4); MONOCYTES ABSOLUTE AUTO 0.6 x10-3/uL (0.3-1.0); MONOCYTES PERCENT AUTO 9.8 % (4.4-15.7); NEUTROPHILS ABSOLUTE AUTO 2.5 x10-3/uL (1.5-6.3); NEUTROPHILS PERCENT AUTO 41.6 % (30.8-76.2); PLATELET COUNT,PLT 308 x10(3)uL (151-488); RED BLOOD CELL COUNT 3.77 x10(6)uL (3.60-5.20); RED CELL DISTRIBUTION WIDTH 15.9 % (12.3-16.5); WHITE BLOOD CELL COUNT,WBC 6.0 x10-3/uL (3.0-10.3)
[2025-06-04 07:01] LABS: BLOOD UREA NITROGEN,BUN 21 mg/dL (7-18); CARBON DIOXIDE,CO2 25 mmol/L (21-32); CHLORIDE,CL 106 mmol/L (100-110); CREATININE 0.9 mg/dL (0.55-1.02); EST CRCL DRUG DOSING (CG) 42.38 mL/min; ESTIMATED GFR 69 mL/min (>60); GLUCOSE RANDOM 162 mg/dL (80-116); POTASSIUM,K 3.9 mmol/L (3.5-5.3); SODIUM,NA 140 mmol/L (135-145)
[2025-06-04 23:32] LABS: HIV-1 QUALITATIVE BY NAAT Not Detected (Not Detected); HIV-2 QUALITATIVE BY NAAT Not Detected (Not Detected)
[2025-06-05] MEDS: Alum Hydroxide/Mag Hydroxide 15 ML, Lidocaine 2% 15 ML PO SCH (11:31)
[2025-06-06 09:09] VITALS: BP 156/71; PULSE 67
== END 2025-06-06 11:08 | disposition swing bed (61) | DRG 193 ==
LOC: FB.ED 20:03 → FB.MS 23:32 → UNDOADMIN 23:32 → FB.MS 06-01 00:25
PROVIDERS: ADMIT Emergency Medicine; ATTEND Family Medicine
PROC: 0DJ08ZZ Inspection of Upper Intestinal Tract, Via Natural or Artificial Opening Endoscopic (ICD-10-PCS; principal; 2025-05-31)
DX: J18.9 Pneumonia, unspecified organism (principal); I50.31 Acute diastolic (congestive) heart failure; I13.0 Hypertensive heart and chronic kidney disease with heart failure and stage 1 through stage 4 chronic kidney disease, or unspecified chronic kidney disease; B37.81 Candidal esophagitis; J44.1 Chronic obstructive pulmonary disease with (acute) exacerbation; J44.0 Chronic obstructive pulmonary disease with (acute) lower respiratory infection; N39.0 Urinary tract infection, site not specified; I12.9 Hypertensive chronic kidney disease with stage 1 through stage 4 chronic kidney disease, or unspecified chronic kidney disease; Z66 Do not resuscitate; I50.9 Heart failure, unspecified; N18.31 Chronic kidney disease, stage 3a; R79.89 Other specified abnormal findings of blood chemistry; H54.7 Unspecified visual loss; H26.9 Unspecified cataract; E11.22 Type 2 diabetes mellitus with diabetic chronic kidney disease; R53.81 Other malaise; R53.1 Weakness; E87.1 Hypo-osmolality and hyponatremia; K59.00 Constipation, unspecified; M19.90 Unspecified osteoarthritis, unspecified site; G43.909 Migraine, unspecified, not intractable, without status migrainosus; E11.40 Type 2 diabetes mellitus with diabetic neuropathy, unspecified; E83.42 Hypomagnesemia; F41.9 Anxiety disorder, unspecified; E87.6 Hypokalemia; F32.A Depression, unspecified; I35.0 Nonrheumatic aortic (valve) stenosis; R41.0 Disorientation, unspecified; Z68.27 Body mass index [BMI] 27.0-27.9, adult; Z90.49 Acquired absence of other specified parts of digestive tract; Z98.890 Other specified postprocedural states; Z91.199 Patient's noncompliance with other medical treatment and regimen due to unspecified reason; E86.0 Dehydration; Z79.82 Long term (current) use of aspirin; Z79.4 Long term (current) use of insulin; E78.00 Pure hypercholesterolemia, unspecified; Z98.891 History of uterine scar from previous surgery; Z90.710 Acquired absence of both cervix and uterus; E66.9 Obesity, unspecified; E03.9 Hypothyroidism, unspecified; Z88.8 Allergy status to other drugs, medicaments and biological substances; Z79.84 Long term (current) use of oral hypoglycemic drugs; Z79.890 Hormone replacement therapy; Z79.899 Other long term (current) drug therapy; Z87.891 Personal history of nicotine dependence; Z68.28 Body mass index [BMI] 28.0-28.9, adult
CPT/HCPCS: 36415; 71045; 80053; 83735; 83880; 84484; 85025; 93005; 93010; 96365; 96366; 96375; 99285 ×2; A9270 ×5; J0360; J1163 ×2; J2270; J3475 ×2; J7030; 00731; 70450; 70450-26; 71275; 71275-26; 80048; 81001; 82947; 83605; 84132; 87040; 87186; 87535; 87637; 88305; 88312; 88342; 93308; 94150; 97161-GP; 99223; 99232; 99233; 99238; J0696; J1271; J1650; J1815-GY; J1938; J2003; J2704; J3480; J7120; Q9967